=== PATIENT | male | born 1955 | race Caucasian/White ===

== ENCOUNTER 2018-02-13 14:20 | Emergency (ER) | payer MEDICARE, MEDICAID ==
[~2018-02-13] VITALS: Ht 193 cm; Wt 136.4 kg
[~2018-02-13 14:20] MED LIST: AMLO5TAB16 PO; ATOR20TA66 PO; CARB100T15 PO; CLOP75TA35 PO; DOCU100C40 PO; DULO30CA51 PO; ISOS30TA6 PO; LISI-600 PO; METH-603 PO; MIRT15TA8 PO; NITR0.4T48 SL; PER5325T PO; TRAZ-218 PO
[2018-02-13] MEDS ORDERED: LISI-600 PO (14:50)
[2018-02-13 15:10] LABS: CLARITY,URINE SLIGHTLY CLOUDY (Clear); COLOR,URINE YELLOW (Yellow); GLUCOSE, URINE NEGATIVE (Neg); KETONES,URINE TRACE mg/dl (Neg); LEUKOCYTE ESTERASE ,URINE NEGATIVE (Neg); NITRITES, URINE NEGATIVE (Neg); OCCULT BLOOD,URINE NEGATIVE (Neg); PH,URINE 5.5 (4.8-8.0); PROTEIN,URINE NEGATIVE (Neg); UROBILINOGEN,URINE 0.2 E.U/dL (0.2-1.0)
[2018-02-13 15:12] LABS: UA COLLECTION TYPE VOIDED
[2018-02-13 15:23] LABS: BACTERIA,URINE 1+ /HPF (Neg); MUCUS STRANDS MODERATE /LPF (Neg); RBC,URINE 0-2 /HPF (0-2); SQUAMOUS EPITHELIAL CELL,UR MODERATE /LPF (FEW); WBC,URINE 0-4 /HPF (0-4)
[2018-02-13 15:41] LABS: BASOPHILS % (AUTO) 0.7 % (0-1); EOSINOPHILS # (AUTO) 0.2 X10'3 (0-0.9); EOSINOPHILS % (AUTO) 3.6 % (0-6); HEMATOCRIT 45.1 % (42.0-52.0); HEMOGLOBIN 15.4 g/dl (14.0-17.9); LYMPHOCYTES # (AUTO) 1.4 X10'3 (1.1-4.8); MEAN CORPUSCULAR HEMOGLOBIN 29.9 PG (27.0-31.0); MEAN CORPUSCULAR HGB CONC 34.1 % (33.0-36.5); MEAN CORPUSCULAR VOLUME 87.7 FL (78-98); MEAN PLATELET VOLUME 7.7 FL (7.4-10.4); MONOCYTES # (AUTO) 0.3 X10'3 (0-0.9); MONOCYTES % (AUTO) 5.9 % (2-12); NEUTROPHILS # (AUTO) 3.8 X10'3 (1.8-7.7); NEUTROPHILS % (AUTO) 65.8 % (42-75); PLATELET COUNT 248 X10'3 (140-440); RED BLOOD COUNT 5.14 X10'6 (4.70-6.10); RED CELL DISTRIBUTION WIDTH 14.3 % (11.5-14.5); WHITE BLOOD COUNT 5.9 X10'3 (4.5-11.0)
[2018-02-13 15:53] LABS: PROTHROMBIN TIME 9.8 SECONDS (9.0-12.0)
[2018-02-13 15:59] LABS: ALANINE AMINOTRANSFERASE 27 U/L (12-78); ALBUMIN/GLOBULIN RATIO 1.2 (1.1-1.5); ALKALINE PHOSPHATASE 111 IU/L (46-116); ANION GAP 10 (8-16); ASPARTATE AMINO TRANSFERASE 16 U/L (10-37); BILIRUBIN,TOTAL 0.3 MG/DL (0.1-1.0); BLOOD UREA NITROGEN 17 MG/DL (7-18); BUN/CREATININE RATIO 17.2 (5.4-32.0); CALCIUM 8.9 MG/DL (8.5-10.1); CHLORIDE 104 MMOL/L (99-107); CREATININE 0.99 MG/DL (0.60-1.10); GLUCOSE 116 MG/DL (70-104); POTASSIUM 3.8 MMOL/L (3.5-5.1); SODIUM 141 MMOL/L (135-145); TOTAL CARBON DIOXIDE 26.8 MMOL/L (24-32); TOTAL PROTEIN 7.4 G/DL (6.4-8.2); eGFR 77 ML/MIN
[2018-02-13 16:13] LABS: LIPASE 357 U/L (73-393)
[2018-02-13] MEDS ORDERED: HYDROcodone/acetaminophen 10/325mg tab PO ONE (16:25)
[2018-02-13] MEDS ORDERED: ketorolac trometh inj. 60 MG/2 ML VIAL IM ONE (16:25)
[2018-02-13 17:22] VITALS: BP 108/6
== END 2018-02-13 17:28 | disposition home or self-care (01) ==
LOC: ER 14:23
DX: M25.551 Pain in right hip (principal); M25.552 Pain in left hip; I25.10 Atherosclerotic heart disease of native coronary artery without angina pectoris; I10 Essential (primary) hypertension; I25.2 Old myocardial infarction; K21.9 Gastro-esophageal reflux disease without esophagitis; G89.29 Other chronic pain; Z98.61 Coronary angioplasty status; Z88.8 Allergy status to other drugs, medicaments and biological substances; Z79.01 Long term (current) use of anticoagulants; Z79.899 Other long term (current) drug therapy
CPT/HCPCS: 36415; 73521; 80053; 81001; 83690; 85025; 85610; 96372; 99284; J1885

== ENCOUNTER 2018-04-24 12:00 | Emergency (ER) | payer MEDICARE, MEDICAID ==
[~2018-04-24] VITALS: Ht 193 cm; Wt 141.8 kg
[~2018-04-24 12:00] MED LIST changes: -AMLO5TAB16 PO; -CARB100T15 PO; -DOCU100C40 PO; -DULO30CA51 PO; -ISOS30TA6 PO; -METH-603 PO; -MIRT15TA8 PO; -PER5325T PO; -TRAZ-218 PO
[2018-04-24 12:16] VITALS: BP 150/93
[2018-04-24] MEDS ORDERED: DOXY100C43 PO (12:50)
== END 2018-04-24 13:07 | disposition home or self-care (01) ==
LOC: ER 12:01
DX: L97.519 Non-pressure chronic ulcer of other part of right foot with unspecified severity (principal); I10 Essential (primary) hypertension; I25.10 Atherosclerotic heart disease of native coronary artery without angina pectoris; K21.9 Gastro-esophageal reflux disease without esophagitis; G89.29 Other chronic pain; F17.200 Nicotine dependence, unspecified, uncomplicated; Z88.8 Allergy status to other drugs, medicaments and biological substances
CPT/HCPCS: 73630; 99283

== ENCOUNTER 2018-04-30 09:08 | Day surgery (SDC) | payer MEDICARE, MEDICAID ==
[~2018-04-30 09:08] MED LIST changes: +DOXY100C43 PO
[2018-04-30] MEDS ORDERED: LIDOcaine/PRILOcaine 5gm cream TP ONE (10:03)
--- NOTE | 2018-04-30 11:00 | NUR ---
Patient ambulated independently from [facility] accompanied by his mother and was admitted to outpatient wound care for physician visit with Brian Rivera MD. Wound cleansed and Emla cream applied per order. New patient assessment completed with review of patient medical history and current medications. 0953 - Dr. Rivera at bedside accompanied by RN. Wound assessed, time out performed by MD/RN. Wound debrided as detailed in the physician progress/procedure note. Plan of care discussed with patient. Dressings placed per MD orders. Patient instructed on the signs and symptoms of infection and to call the Wound Center if any occur or to go to the ED if we are closed: Increased pain in wound Increase in drainage from the wound Redness in the skin surrounding the wound Bleeding from the wound Temperature of 101 or greater Patient instructed that the weight of their body puts a large amount of pressure on their wounds. This pressure keeps the new tissue from growing and inhibits new blood vessels from forming. Explained that, if they continue to bear weight on a body part that has a wound, the time it takes to heal the wound increases, the wound may get worse or the wound may not heal at all. Patient verbalized understanding of all discharge instructions and plan of care and ambulated independently out to [facility] accompanied by his mother in stable condition with no sign or symptom of distress at time of discharge.
== END 2018-04-30 11:16 | disposition home or self-care (01) ==
LOC: WOUND CARE 09:08
PROVIDERS: ATTEND Surgery
DX: E11.621 Type 2 diabetes mellitus with foot ulcer (principal); L97.512 Non-pressure chronic ulcer of other part of right foot with fat layer exposed; E11.40 Type 2 diabetes mellitus with diabetic neuropathy, unspecified; I10 Essential (primary) hypertension; I25.10 Atherosclerotic heart disease of native coronary artery without angina pectoris; K21.9 Gastro-esophageal reflux disease without esophagitis; G89.29 Other chronic pain; F17.200 Nicotine dependence, unspecified, uncomplicated
CPT/HCPCS: 11042; 36415; 83036; 87070; 87075; 87102; A6209; L3260; 87077; 87186; A6021; A6206; A6446

== ENCOUNTER 2018-05-07 08:59 | Day surgery (SDC) | payer MEDICARE, MEDICAID ==
[~2018-05-07 08:59] MED LIST changes: -DOXY100C43 PO
[2018-05-07] MEDS ORDERED: LIDOcaine/PRILOcaine 5gm cream TP ONE (11:11)
--- NOTE | 2018-05-07 12:00 | NUR ---
Patient ambulated independently from lobby accompanied by his mother and was admitted to outpatient wound care for physician visit with Brian Rivera MD. Placed in contact isolation precautions per hospital policy. Dressing removed, wound cleansed and Emla cream applied per order. Patient assessed for changes in conditions, medications and medical history. Vascular study performed. Lab results of HgbA1C of 6.2 discussed with patient and his mother by RN; patient is advised to follow up with his primary care provider. 0932 - blood glucose 110. Patient instructed that elevated blood sugars delay healing of the wound and can cause further complications including but not limited to amputation of toes or feet. 1115 - Dr. Rivera at bedside accompanied by RN. Wound assessed, time out performed by MD/RN. Wound debrided as detailed in the physician progress/procedure note. Plan of care discussed with patient. Dressings placed per MD orders. Patient instructed on the signs and symptoms of infection and to call the Wound Center if any occur or to go to the ED if we are closed: Increased pain in wound Increase in drainage from the wound Redness in the skin surrounding the wound Bleeding from the wound Temperature of 101 or greater Patient instructed that the weight of their body puts a large amount of pressure on their wounds. This pressure keeps the new tissue from growing and inhibits new blood vessels from forming. Explained that, if they continue to bear weight on a body part that has a wound, the time it takes to heal the wound increases, the wound may get worse or the wound may not heal at all. Patient verbalized understanding of all discharge instructions and plan of care and ambulated independently out to lob in stable condition with no sign or symptom of distress at time of discharge.
[2018-05-07] MEDS ORDERED: ACET1TAB12 PO (12:43)
[2018-05-07] MEDS ORDERED: RIFA300C4 (12:43)
== END 2018-05-07 11:50 | disposition home or self-care (01) ==
LOC: WOUND CARE 08:59 → EDSTATUS 09:00 → WOUND CARE 11:50
PROVIDERS: ATTEND Surgery
DX: E11.621 Type 2 diabetes mellitus with foot ulcer (principal); L97.512 Non-pressure chronic ulcer of other part of right foot with fat layer exposed; E11.40 Type 2 diabetes mellitus with diabetic neuropathy, unspecified; I10 Essential (primary) hypertension; I25.10 Atherosclerotic heart disease of native coronary artery without angina pectoris; K21.9 Gastro-esophageal reflux disease without esophagitis; G89.29 Other chronic pain; F17.200 Nicotine dependence, unspecified, uncomplicated
CPT/HCPCS: 11042; 36416; 82948; 93922; A6209; L3260; A6021; A6206; A6446

== ENCOUNTER 2018-05-14 08:55 | Day surgery (SDC) | payer MEDICARE, MEDICAID ==
[~2018-05-14 08:55] MED LIST changes: +ACET1TAB12 PO; +RIFA300C4
[2018-05-14] MEDS ORDERED: LIDOcaine/PRILOcaine 5gm cream TP ONE (09:31)
[2018-05-14] MEDS ORDERED: LIDOcaine 1%/PF 5ML 10 MG/ML VIAL ONE (10:06)
--- NOTE | 2018-05-14 11:56 | NUR ---
Patient ambulated independently from lobby with crutches. Patient admitted to outpatient wound care for physician visit with Brian Rivera MD. Dressing removed, wound cleansed and Emla cream applied per order. Patient assessed for changes in conditions, medications and medical history. Dr. Rivera at bedside accompanied by RN. Wound assessed, time out performed by MD/RN. Wound debrided as detailed in the physician progress/procedure note. Plan of care discussed with patient. Dressings placed per MD orders. Patient instructed on the signs and symptoms of infection and to call the Wound Center if any occur or to go to the ED if we are closed: Increased pain in wound Increase in drainage from the wound Redness in the skin surrounding the wound Bleeding from the wound Temperature of 101 or greater Patient instructed that elevated blood sugars delay healing of the wound and can cause further complications including but not limited to amputation of toes or feet. Patient instructed that the weight of their body puts a large amount of pressure on their wounds. This pressure keeps the new tissue from growing and inhibits new blood vessels from forming. Explained that, if they continue to bear weight on a body part that has a wound, the time it takes to heal the wound increases, the wound may get worse or the wound may not heal at all. Patient verbalized understanding of all discharge instructions and plan of care and ambulated independently out to lobby in stable condition with no sign or symptom of distress at time of discharge. Addendum: 05/14/18 at 1159 by Fabiana Moran RN Amended: Links added.
== END 2018-05-14 10:58 | disposition home or self-care (01) ==
LOC: WOUND CARE 08:55
PROVIDERS: ATTEND Surgery
DX: E11.621 Type 2 diabetes mellitus with foot ulcer (principal); L97.512 Non-pressure chronic ulcer of other part of right foot with fat layer exposed; E11.40 Type 2 diabetes mellitus with diabetic neuropathy, unspecified; I10 Essential (primary) hypertension; I25.10 Atherosclerotic heart disease of native coronary artery without angina pectoris; K21.9 Gastro-esophageal reflux disease without esophagitis; G89.29 Other chronic pain; F17.200 Nicotine dependence, unspecified, uncomplicated
CPT/HCPCS: 11042; 36416; 82948; A6209; J2001; A6021; A6206; A6446

== ENCOUNTER 2018-05-21 08:54 | Day surgery (SDC) | payer MEDICARE, MEDICAID ==
[2018-05-21] MEDS ORDERED: LIDOcaine/PRILOcaine 5gm cream TP ONE (09:43)
--- NOTE | 2018-05-21 11:52 | NUR ---
Patient ambulated independently accompanied by his mother from [facility] and was admitted to outpatient wound care for physician visit with Brian Rivera MD. Placed in contact isolation precautions per hospital policy. Dressing removed, wound cleansed and Emla cream applied per order. Patient assessed for changes in conditions, medications and medical history. 0915 - blood glucose 131. Patient instructed that elevated blood sugars delay healing of the wound and can cause further complications including but not limited to amputation of toes or feet. 1007 - Dr. Rivera at bedside accompanied by RN. Wound assessed, time out performed by MD/RN. Wound debrided as detailed in the physician progress/procedure note. Plan of care discussed with patient. Dressings placed per MD orders. Patient instructed on the signs and symptoms of infection and to call the Wound Center if any occur or to go to the ED if we are closed: Increased pain in wound Increase in drainage from the wound Redness in the skin surrounding the wound Bleeding from the wound Temperature of 101 or greater Patient instructed that the weight of their body puts a large amount of pressure on their wounds. This pressure keeps the new tissue from growing and inhibits new blood vessels from forming. Explained that, if they continue to bear weight on a body part that has a wound, the time it takes to heal the wound increases, the wound may get worse or the wound may not heal at all. Patient and his mother verbalized understanding of all discharge instructions and plan of care and patient ambulated accompanied by his mother independently out to [facility] in stable condition with no sign or symptom of distress at time of discharge.
== END 2018-05-21 10:29 | disposition home or self-care (01) ==
LOC: WOUND CARE 08:54
PROVIDERS: ATTEND Surgery
DX: E11.621 Type 2 diabetes mellitus with foot ulcer (principal); L97.512 Non-pressure chronic ulcer of other part of right foot with fat layer exposed; E11.40 Type 2 diabetes mellitus with diabetic neuropathy, unspecified; I10 Essential (primary) hypertension; E11.65 Type 2 diabetes mellitus with hyperglycemia; I25.10 Atherosclerotic heart disease of native coronary artery without angina pectoris; K21.9 Gastro-esophageal reflux disease without esophagitis; G89.29 Other chronic pain; E78.5 Hyperlipidemia, unspecified; F17.200 Nicotine dependence, unspecified, uncomplicated; F12.10 Cannabis abuse, uncomplicated; Z86.19 Personal history of other infectious and parasitic diseases
CPT/HCPCS: 11042; 36416; 82948; A6209; A6021; A6206; A6446

== ENCOUNTER 2018-05-28 08:55 | Day surgery (SDC) | payer MEDICARE, MEDICAID ==
[2018-05-28] MEDS ORDERED: LIDOcaine/PRILOcaine 5gm cream TP ONE (09:42)
--- NOTE | 2018-05-28 11:54 | NUR ---
Patient ambulated independently from [facility] and was admitted to outpatient wound care for physician visit with Brian Rivera MD. Dressing removed, wound cleansed and Emla cream applied per order. Patient assessed for changes in conditions, medications and medical history. Dr. Rivera at bedside accompanied by RN. Wound assessed, time out performed by MD/RN. Wound debrided as detailed in the physician progress/procedure note. Plan of care discussed with patient. Dressings placed per MD orders. Patient instructed on the signs and symptoms of infection and to call the Wound Center if any occur or to go to the ED if we are closed: Increased pain in wound Increase in drainage from the wound Redness in the skin surrounding the wound Bleeding from the wound Temperature of 101 or greater Patient instructed that elevated blood sugars delay healing of the wound and can cause further complications including but not limited to amputation of toes or feet. Patient instructed that the weight of their body puts a large amount of pressure on their wounds. This pressure keeps the new tissue from growing and inhibits new blood vessels from forming. Explained that, if they continue to bear weight on a body part that has a wound, the time it takes to heal the wound increases, the wound may get worse or the wound may not heal at all. Patient verbalized understanding of all discharge instructions and plan of care and ambulated independently out to [facility] in stable condition with no sign or symptom of distress at time of discharge. Addendum: 05/28/18 at 1156 by Fabiana Moran RN Amended: Links added.
== END 2018-05-28 11:06 | disposition home or self-care (01) ==
LOC: WOUND CARE 08:55
PROVIDERS: ATTEND Surgery
DX: E11.621 Type 2 diabetes mellitus with foot ulcer (principal); L97.512 Non-pressure chronic ulcer of other part of right foot with fat layer exposed; E11.40 Type 2 diabetes mellitus with diabetic neuropathy, unspecified; I10 Essential (primary) hypertension; E11.65 Type 2 diabetes mellitus with hyperglycemia; I25.10 Atherosclerotic heart disease of native coronary artery without angina pectoris; K21.9 Gastro-esophageal reflux disease without esophagitis; G89.29 Other chronic pain; E78.5 Hyperlipidemia, unspecified; F17.200 Nicotine dependence, unspecified, uncomplicated; F12.10 Cannabis abuse, uncomplicated; Z86.19 Personal history of other infectious and parasitic diseases
CPT/HCPCS: 15275; 36416; 82948; A6222; Q4106; A6213; A6250; A6446

== ENCOUNTER 2018-06-04 08:55 | Day surgery (SDC) | payer MEDICARE, MEDICAID ==
[2018-06-04] MEDS ORDERED: LIDOcaine/PRILOcaine 5gm cream TP ONE (10:25)
[2018-06-04 12:31] LABS: ALANINE AMINOTRANSFERASE 20 U/L (12-78); ALBUMIN 3.7 G/DL (3.4-5.0); ALBUMIN/GLOBULIN RATIO 1.1 (1.1-1.5); ALKALINE PHOSPHATASE 85 IU/L (46-116); ANION GAP 7 (8-16); BILIRUBIN,TOTAL 0.6 MG/DL (0.1-1.0); BLOOD UREA NITROGEN 18 MG/DL (7-18); CALCIUM 9.4 MG/DL (8.5-10.1); CHLORIDE 107 MMOL/L (99-107); GLUCOSE 82 MG/DL (70-104); SODIUM 145 MMOL/L (135-145); TOTAL PROTEIN 7.1 G/DL (6.4-8.2)
[2018-06-04 12:42] LABS: CREATININE 0.82 MG/DL (0.60-1.10); eGFR > 90 ML/MIN
[2018-06-04 12:44] LABS: ASPARTATE AMINO TRANSFERASE 21 U/L (10-37); POTASSIUM 4.6 MMOL/L (3.5-5.1)
--- NOTE | 2018-06-04 14:43 | NUR ---
Patient ambulated independently from [facility] and was admitted to outpatient wound care for physician visit with Brian Rivera MD. Dressing removed, wound cleansed and Emla cream applied per order. Patient assessed for changes in conditions, medications and medical history. Dr. Rivera at bedside accompanied by RN. Wound assessed, time out performed by MD/RN. Wound debrided as detailed in the physician progress/procedure note. Plan of care discussed with patient. Dressings placed per MD orders. Patient instructed on the signs and symptoms of infection and to call the Wound Center if any occur or to go to the ED if we are closed: Increased pain in wound Increase in drainage from the wound Redness in the skin surrounding the wound Bleeding from the wound Temperature of 101 or greater Patient instructed that elevated blood sugars delay healing of the wound and can cause further complications including but not limited to amputation of toes or feet. Patient instructed that the weight of their body puts a large amount of pressure on their wounds. This pressure keeps the new tissue from growing and inhibits new blood vessels from forming. Explained that, if they continue to bear weight on a body part that has a wound, the time it takes to heal the wound increases, the wound may get worse or the wound may not heal at all. Patient verbalized understanding of all discharge instructions and plan of care and ambulated independently out to [facility] in stable condition with no sign or symptom of distress at time of discharge. Addendum: 06/04/18 at 1444 by Fabiana Moran RN Amended: Links added.
== END 2018-06-04 12:14 | disposition home or self-care (01) ==
LOC: WOUND CARE 08:55
PROVIDERS: ATTEND Surgery
DX: E11.621 Type 2 diabetes mellitus with foot ulcer (principal); L97.512 Non-pressure chronic ulcer of other part of right foot with fat layer exposed; E11.40 Type 2 diabetes mellitus with diabetic neuropathy, unspecified; I10 Essential (primary) hypertension; E11.65 Type 2 diabetes mellitus with hyperglycemia; I25.10 Atherosclerotic heart disease of native coronary artery without angina pectoris; K21.9 Gastro-esophageal reflux disease without esophagitis; G89.29 Other chronic pain; E78.5 Hyperlipidemia, unspecified; F17.200 Nicotine dependence, unspecified, uncomplicated; F12.10 Cannabis abuse, uncomplicated; Z86.19 Personal history of other infectious and parasitic diseases
CPT/HCPCS: 15275; 36415; 36416; 80053; 82948; 84402; A6209; A6222; Q4106; A6250; A6446

== ENCOUNTER 2018-06-12 08:50 | Outpatient (CLI) | payer MEDICARE, MEDICAID ==
--- NOTE | 2018-06-12 11:20 | NUR ---
Patient ambulated independently from [facility] and was admitted to outpatient wound care for physician visit with Brian Rivera MD. Dressing removed, wound cleansed and lidocaine applied per order. Patient assessed for changes in conditions, medications and medical history. Dr. Rivera at bedside accompanied by RN. Wound assessed and no debridement was done. Plan of care discussed with patient. Dressings placed per MD orders. Patient instructed on the signs and symptoms of infection and to call the Wound Center if any occur or to go to the ED if we are closed: Increased pain in wound Increase in drainage from the wound Redness in the skin surrounding the wound Bleeding from the wound Temperature of 101 or greater Patient instructed that elevated blood sugars delay healing of the wound and can cause further complications including but not limited to amputation of toes or feet. Patient instructed that the weight of their body puts a large amount of pressure on their wounds. This pressure keeps the new tissue from growing and inhibits new blood vessels from forming. Explained that, if they continue to bear weight on a body part that has a wound, the time it takes to heal the wound increases, the wound may get worse or the wound may not heal at all. Patient verbalized understanding of all discharge instructions and plan of care and ambulated independently out to [facility] in stable condition with no sign or symptom of distress at time of discharge. Addendum: 06/12/18 at 1121 by Fabiana Moran RN Amended: Links added.
== END 2018-06-12 10:25 | disposition home or self-care (01) ==
LOC: WOUND CARE 08:50 → EDSTATUS 09:00 → WOUND CARE 10:25
PROVIDERS: ATTEND Surgery
DX: E11.621 Type 2 diabetes mellitus with foot ulcer (principal); L97.512 Non-pressure chronic ulcer of other part of right foot with fat layer exposed; E11.40 Type 2 diabetes mellitus with diabetic neuropathy, unspecified; I10 Essential (primary) hypertension; E11.65 Type 2 diabetes mellitus with hyperglycemia; I25.10 Atherosclerotic heart disease of native coronary artery without angina pectoris; K21.9 Gastro-esophageal reflux disease without esophagitis; G89.29 Other chronic pain; E78.5 Hyperlipidemia, unspecified; F17.200 Nicotine dependence, unspecified, uncomplicated; F12.10 Cannabis abuse, uncomplicated; Z86.19 Personal history of other infectious and parasitic diseases
CPT/HCPCS: 36416; 82948; A6222; G0463; A6446

== ENCOUNTER 2018-06-19 08:50 | Day surgery (SDC) | payer MEDICARE, MEDICAID ==
[2018-06-19] MEDS ORDERED: LIDOcaine/PRILOcaine 5gm cream TP ONE (09:55)
--- NOTE | 2018-06-19 15:06 | NUR ---
Patient ambulated independently from [facility] and was admitted to outpatient wound care for physician visit with Brian Rivera MD. Dressing removed, wound cleansed and lidocaine applied per order. Patient assessed for changes in conditions, medications and medical history. Dr. Rivera at bedside accompanied by RN. Wound assessed, time out performed by MD/RN. Wound debrided as detailed in the physician progress/procedure note. Plan of care discussed with patient. Dressings placed per MD orders. Patient instructed on the signs and symptoms of infection and to call the Wound Center if any occur or to go to the ED if we are closed: Increased pain in wound Increase in drainage from the wound Redness in the skin surrounding the wound Bleeding from the wound Temperature of 101 or greater Patient instructed that elevated blood sugars delay healing of the wound and can cause further complications including but not limited to amputation of toes or feet. Patient instructed that the weight of their body puts a large amount of pressure on their wounds. This pressure keeps the new tissue from growing and inhibits new blood vessels from forming. Explained that, if they continue to bear weight on a body part that has a wound, the time it takes to heal the wound increases, the wound may get worse or the wound may not heal at all. Patient verbalized understanding of all discharge instructions and plan of care and ambulated independently out to [facility] in stable condition with no sign or symptom of distress at time of discharge. Addendum: 06/19/18 at 1507 by Fabiana Moran RN Amended: Links added.
== END 2018-06-19 11:34 | disposition home or self-care (01) ==
LOC: WOUND CARE 08:50
PROVIDERS: ATTEND Surgery
DX: E11.621 Type 2 diabetes mellitus with foot ulcer (principal); L97.512 Non-pressure chronic ulcer of other part of right foot with fat layer exposed; E11.40 Type 2 diabetes mellitus with diabetic neuropathy, unspecified; I10 Essential (primary) hypertension; E11.65 Type 2 diabetes mellitus with hyperglycemia; I25.10 Atherosclerotic heart disease of native coronary artery without angina pectoris; K21.9 Gastro-esophageal reflux disease without esophagitis; G89.29 Other chronic pain; E78.5 Hyperlipidemia, unspecified; F17.200 Nicotine dependence, unspecified, uncomplicated; F12.10 Cannabis abuse, uncomplicated; Z86.19 Personal history of other infectious and parasitic diseases
CPT/HCPCS: 15275; 36416; 82948; A6209; Q4106; A6250; A6446

== ENCOUNTER 2018-06-26 08:48 | Day surgery (SDC) | payer MEDICARE, MEDICAID ==
[2018-06-26] MEDS ORDERED: LIDOcaine/PRILOcaine 5gm cream TP ONE (09:56)
--- NOTE | 2018-06-26 16:06 | NUR ---
0900 Patient ambulated safely into [facility]. Patient admitted to outpatient wound care clinic for follow-up visit with physician. Patient placed in isolation per isolation protocol. Dressing removed, wound cleansed. Patient assessed for changes in conditions, medications and medical history. Patient showed no s/s of distress at time of assessment. 1015 at bedside accompanied by RN. Wounds assessed, time out performed and debridement done today as detailed in the physician progress/procedure note. Plan of care discussed with patient. Dressings placed per MD orders. Patient instructed on the signs and symptoms of infection and to call the Wound Center if any occur or to go to the ED if we are closed: Increased pain in wound Increase in drainage from the wound Redness in the skin surrounding the wound Bleeding from the wound Temperature of 101 or greater Patient instructed that the weight of their body puts a large amount of pressure on their wounds. This pressure keeps the new tissue from growing and inhibits new blood vessels from forming. Explained that, if they continue to bear weight on a body part that has a wound, the time it takes to heal the wound increases, the wound may get worse or the wound may not heal at all. Patient instructed that elevated blood sugars delay healing of the wound and can cause further complications including but not limited to amputation of toes or feet. Patient verbalized understanding of all discharge instructions and plan of care. Patient ambulated independently out to [facility] and is in stable condition with no sign or symptom of distress at time of discharge.
== END 2018-06-26 10:58 | disposition home or self-care (01) ==
LOC: WOUND CARE 08:48
PROVIDERS: ATTEND Surgery
DX: E11.621 Type 2 diabetes mellitus with foot ulcer (principal); L97.512 Non-pressure chronic ulcer of other part of right foot with fat layer exposed; E11.40 Type 2 diabetes mellitus with diabetic neuropathy, unspecified; I10 Essential (primary) hypertension; E11.65 Type 2 diabetes mellitus with hyperglycemia; I25.10 Atherosclerotic heart disease of native coronary artery without angina pectoris; K21.9 Gastro-esophageal reflux disease without esophagitis; G89.29 Other chronic pain; E78.5 Hyperlipidemia, unspecified; F17.200 Nicotine dependence, unspecified, uncomplicated; F12.10 Cannabis abuse, uncomplicated; Z86.19 Personal history of other infectious and parasitic diseases
CPT/HCPCS: 36416; 82948; 97597; A6209; A6021; A6446

== ENCOUNTER 2018-07-02 08:55 | Day surgery (SDC) | payer MEDICARE, MEDICAID ==
[2018-07-02] MEDS ORDERED: LIDOcaine/PRILOcaine 5gm cream TP ONE (09:30)
--- NOTE | 2018-07-02 12:25 | NUR ---
Patient ambulated independently from [facility] and was admitted to outpatient wound care for physician visit with Brian Rivera MD. Dressing removed, wound cleansed and lidocaine applied per order. Patient assessed for changes in conditions, medications and medical history. Dr. Rivera at bedside accompanied by RN. Wound assessed, time out performed by MD/RN. Wound debrided as detailed in the physician progress/procedure note. Graft placed and plan of care discussed with patient. Dressings placed per MD orders. Patient instructed on the signs and symptoms of infection and to call the Wound Center if any occur or to go to the ED if we are closed: Increased pain in wound Increase in drainage from the wound Redness in the skin surrounding the wound Bleeding from the wound Temperature of 101 or greater Patient instructed that elevated blood sugars delay healing of the wound and can cause further complications including but not limited to amputation of toes or feet. Patient instructed that the weight of their body puts a large amount of pressure on their wounds. This pressure keeps the new tissue from growing and inhibits new blood vessels from forming. Explained that, if they continue to bear weight on a body part that has a wound, the time it takes to heal the wound increases, the wound may get worse or the wound may not heal at all. Patient verbalized understanding of all discharge instructions and plan of care and ambulated independently out to [facility] in stable condition with no sign or symptom of distress at time of discharge. Addendum: 07/02/18 at 1227 by Fabiana Moran RN Amended: Links added.
== END 2018-07-02 10:57 | disposition home or self-care (01) ==
LOC: WOUND CARE 08:55
PROVIDERS: ATTEND Surgery
DX: E11.621 Type 2 diabetes mellitus with foot ulcer (principal); L97.512 Non-pressure chronic ulcer of other part of right foot with fat layer exposed; E11.40 Type 2 diabetes mellitus with diabetic neuropathy, unspecified; I10 Essential (primary) hypertension; E11.65 Type 2 diabetes mellitus with hyperglycemia; I25.10 Atherosclerotic heart disease of native coronary artery without angina pectoris; K21.9 Gastro-esophageal reflux disease without esophagitis; G89.29 Other chronic pain; E78.5 Hyperlipidemia, unspecified; F17.200 Nicotine dependence, unspecified, uncomplicated; F12.10 Cannabis abuse, uncomplicated; Z86.19 Personal history of other infectious and parasitic diseases
CPT/HCPCS: 15275; 36416; 82948; A6209; A6222; Q4106; A6250; A6446

== ENCOUNTER 2018-07-09 08:52 | Outpatient (CLI) | payer MEDICARE, MEDICAID ==
--- NOTE | 2018-07-09 13:16 | NUR ---
Patient ambulated independently from [facility] and was admitted to outpatient wound care for physician visit with Brian Rivera MD. Dressing removed, wound cleansed and lidocaine applied per order. Patient assessed for changes in conditions, medications and medical history. Dr. Rivera at bedside accompanied by RN. Wound assessed and no debridement was done. Graft in place. Plan of care discussed with patient. Dressings placed per MD orders. Patient instructed on the signs and symptoms of infection and to call the Wound Center if any occur or to go to the ED if we are closed: Increased pain in wound Increase in drainage from the wound Redness in the skin surrounding the wound Bleeding from the wound Temperature of 101 or greater Patient instructed that elevated blood sugars delay healing of the wound and can cause further complications including but not limited to amputation of toes or feet. Patient instructed that the weight of their body puts a large amount of pressure on their wounds. This pressure keeps the new tissue from growing and inhibits new blood vessels from forming. Explained that, if they continue to bear weight on a body part that has a wound, the time it takes to heal the wound increases, the wound may get worse or the wound may not heal at all. Patient verbalized understanding of all discharge instructions and plan of care and ambulated independently out to [facility] in stable condition with no sign or symptom of distress at time of discharge. Addendum: 07/09/18 at 1317 by Fabiana Moran RN Amended: Links added.
== END 2018-07-09 10:50 | disposition home or self-care (01) ==
LOC: WOUND CARE 08:52 → EDSTATUS 09:00 → WOUND CARE 10:50
PROVIDERS: ATTEND Surgery
DX: E11.621 Type 2 diabetes mellitus with foot ulcer (principal); L97.512 Non-pressure chronic ulcer of other part of right foot with fat layer exposed; E11.40 Type 2 diabetes mellitus with diabetic neuropathy, unspecified; I10 Essential (primary) hypertension; E11.65 Type 2 diabetes mellitus with hyperglycemia; I25.10 Atherosclerotic heart disease of native coronary artery without angina pectoris; K21.9 Gastro-esophageal reflux disease without esophagitis; G89.29 Other chronic pain; E78.5 Hyperlipidemia, unspecified; F17.200 Nicotine dependence, unspecified, uncomplicated; F12.10 Cannabis abuse, uncomplicated; Z86.19 Personal history of other infectious and parasitic diseases
CPT/HCPCS: 36416; 82948; G0463; A6206; A6446

== ENCOUNTER 2018-07-17 08:43 | Day surgery (SDC) | payer MEDICARE, MEDICAID ==
[2018-07-17] MEDS ORDERED: LIDOcaine/PRILOcaine 5gm cream TP ONE (09:32)
--- NOTE | 2018-07-17 14:56 | NUR ---
Patient ambulated independently from [facility] and was admitted to outpatient wound care for physician visit with Brian Rivera MD. Dressing removed, wound cleansed and Emla cream applied per order. Patient assessed for changes in conditions, medications and medical history. Dr. Rivera at bedside accompanied by RN. Wound assessed, time out performed by MD/RN. Wound debrided as detailed in the physician progress/procedure note. Plan of care discussed with patient. Dressings placed per MD orders. Patient instructed on the signs and symptoms of infection and to call the Wound Center if any occur or to go to the ED if we are closed: Increased pain in wound Increase in drainage from the wound Redness in the skin surrounding the wound Bleeding from the wound Temperature of 101 or greater Patient instructed that elevated blood sugars delay healing of the wound and can cause further complications including but not limited to amputation of toes or feet. Patient instructed that the weight of their body puts a large amount of pressure on their wounds. This pressure keeps the new tissue from growing and inhibits new blood vessels from forming. Explained that, if they continue to bear weight on a body part that has a wound, the time it takes to heal the wound increases, the wound may get worse or the wound may not heal at all. Patient verbalized understanding of all discharge instructions and plan of care and ambulated independently out to [facility] in stable condition with no sign or symptom of distress at time of discharge. Addendum: 07/17/18 at 1457 by Fabiana Moran RN Amended: Links added.
== END 2018-07-17 10:35 | disposition home or self-care (01) ==
LOC: WOUND CARE 08:43
PROVIDERS: ATTEND Surgery
DX: E11.621 Type 2 diabetes mellitus with foot ulcer (principal); L97.512 Non-pressure chronic ulcer of other part of right foot with fat layer exposed; E11.40 Type 2 diabetes mellitus with diabetic neuropathy, unspecified; I10 Essential (primary) hypertension; E11.65 Type 2 diabetes mellitus with hyperglycemia; I25.10 Atherosclerotic heart disease of native coronary artery without angina pectoris; K21.9 Gastro-esophageal reflux disease without esophagitis; G89.29 Other chronic pain; E78.5 Hyperlipidemia, unspecified; F17.200 Nicotine dependence, unspecified, uncomplicated; F12.10 Cannabis abuse, uncomplicated; Z86.19 Personal history of other infectious and parasitic diseases
CPT/HCPCS: 36416; 82948; 97597; A6021; A6206; A6446

== ENCOUNTER 2018-07-23 00:58 | Outpatient (CLI) | payer MEDICARE, MEDICAID | END 2018-07-23 23:59 | disposition home or self-care (01) | LOC: DIABETIC 00:58 | PROVIDERS: ATTEND Nurse Practitioner | DX: E11.65 Type 2 diabetes mellitus with hyperglycemia (principal); I10 Essential (primary) hypertension; Z79.84 Long term (current) use of oral hypoglycemic drugs; Z79.899 Other long term (current) drug therapy | CPT/HCPCS: G0108 ==

== ENCOUNTER 2018-07-24 08:50 | Day surgery (SDC) | payer MEDICARE, MEDICAID ==
[2018-07-24] MEDS ORDERED: LIDOcaine/PRILOcaine 5gm cream TP ONE (09:50)
--- NOTE | 2018-07-24 13:46 | NUR ---
Patient ambulated independently from [facility] and was admitted to outpatient wound care for physician visit with Brian Rivera MD. Dressing removed, wound cleansed and Emla cream applied per order. Patient assessed for changes in conditions, medications and medical history. Dr. Rivera at bedside accompanied by RN. Wound assessed, time out performed by MD/RN. Wound debrided as detailed in the physician progress/procedure note. Plan of care discussed with patient. Dressings placed per MD orders. Patient instructed on the signs and symptoms of infection and to call the Wound Center if any occur or to go to the ED if we are closed: Increased pain in wound Increase in drainage from the wound Redness in the skin surrounding the wound Bleeding from the wound Temperature of 101 or greater Patient instructed that elevated blood sugars delay healing of the wound and can cause further complications including but not limited to amputation of toes or feet. Patient instructed that the weight of their body puts a large amount of pressure on their wounds. This pressure keeps the new tissue from growing and inhibits new blood vessels from forming. Explained that, if they continue to bear weight on a body part that has a wound, the time it takes to heal the wound increases, the wound may get worse or the wound may not heal at all. Patient verbalized understanding of all discharge instructions and plan of care and ambulated independently out to [facility] in stable condition with no sign or symptom of distress at time of discharge. Addendum: 07/24/18 at 1348 by Fabiana Moran RN Amended: Links added.
== END 2018-07-24 10:50 | disposition home or self-care (01) ==
LOC: WOUND CARE 08:50
PROVIDERS: ATTEND Surgery
DX: E11.621 Type 2 diabetes mellitus with foot ulcer (principal); L97.512 Non-pressure chronic ulcer of other part of right foot with fat layer exposed; E11.40 Type 2 diabetes mellitus with diabetic neuropathy, unspecified; I10 Essential (primary) hypertension; E11.65 Type 2 diabetes mellitus with hyperglycemia; I25.10 Atherosclerotic heart disease of native coronary artery without angina pectoris; K21.9 Gastro-esophageal reflux disease without esophagitis; G89.29 Other chronic pain; E78.5 Hyperlipidemia, unspecified; F17.200 Nicotine dependence, unspecified, uncomplicated; F12.10 Cannabis abuse, uncomplicated; Z86.19 Personal history of other infectious and parasitic diseases
CPT/HCPCS: 36416; 82948; 97597; A6021; A6206; A6446

== ENCOUNTER 2018-07-31 08:52 | Outpatient (CLI) | payer MEDICARE, MEDICAID ==
[2018-07-31] MEDS ORDERED: LIDOcaine/PRILOcaine 5gm cream TP ONE (09:32)
--- NOTE | 2018-07-31 11:00 | NUR ---
Patient ambulated independently from [facility] and was admitted to outpatient wound care for physician visit with Brian Rivera MD. Dressing removed, wound cleansed and Emla cream applied per order. Patient assessed for changes in conditions, medications and medical history. 0938 - blood glucose 123. Patient instructed that elevated blood sugars delay healing of the wound and can cause further complications including but not limited to amputation of toes or feet. 1005 - Dr. Rivera at bedside accompanied by RN. Wound assessed by MD, orders written. Plan of care discussed with patient. Dressings placed per MD orders. Patient instructed on the signs and symptoms of infection and to call the Wound Center if any occur or to go to the ED if we are closed: Increased pain in wound Increase in drainage from the wound Redness in the skin surrounding the wound Bleeding from the wound Temperature of 101 or greater Patient instructed that the weight of their body puts a large amount of pressure on their wounds. This pressure keeps the new tissue from growing and inhibits new blood vessels from forming. Explained that, if they continue to bear weight on a body part that has a wound, the time it takes to heal the wound increases, the wound may get worse or the wound may not heal at all. Patient verbalized understanding of all discharge instructions and plan of care and ambulated independently out to [facility] in stable condition with no sign or symptom of distress at time of discharge.
== END 2018-07-31 10:55 | disposition home or self-care (01) ==
LOC: WOUND CARE 08:52 → EDSTATUS 09:00 → WOUND CARE 10:55
PROVIDERS: ATTEND Surgery
DX: E11.621 Type 2 diabetes mellitus with foot ulcer (principal); L97.512 Non-pressure chronic ulcer of other part of right foot with fat layer exposed; E11.40 Type 2 diabetes mellitus with diabetic neuropathy, unspecified; I10 Essential (primary) hypertension; E11.65 Type 2 diabetes mellitus with hyperglycemia; I25.10 Atherosclerotic heart disease of native coronary artery without angina pectoris; K21.9 Gastro-esophageal reflux disease without esophagitis; G89.29 Other chronic pain; E78.5 Hyperlipidemia, unspecified; F17.200 Nicotine dependence, unspecified, uncomplicated; F12.10 Cannabis abuse, uncomplicated; Z86.19 Personal history of other infectious and parasitic diseases
CPT/HCPCS: 36416; 82948; A6209; G0463; A6021; A6206; A6446

== ENCOUNTER 2018-08-07 08:50 | Day surgery (SDC) | payer MEDICARE, MEDICAID ==
[~2018-08-07 08:50] MED LIST changes: -RIFA300C4
--- NOTE | 2018-08-07 14:36 | NUR ---
Patient ambulated independently from [facility] and was admitted to outpatient wound care for physician visit with Brina Rivera MD. Dressings removed and wound cleansed. Patient assessed for changes in conditions, medications and medical history. Dr. Rivera at bedside accompanied by RN. Wound assessed, time out performed by MD/RN. Wound debrided as detailed in the physician progress/procedure note. Plan of care discussed with patient. Dressings placed per MD orders. Patient instructed on the signs and symptoms of infection and to call the Wound Center if any occur or to go to the ED if we are closed: Increased pain in wound Increase in drainage from the wound Redness in the skin surrounding the wound Bleeding from the wound Temperature of 101 or greater Patient instructed that elevated blood sugars delay healing of the wound and can cause further complications including but not limited to amputation of toes or feet. Patient instructed that the weight of their body puts a large amount of pressure on their wounds. This pressure keeps the new tissue from growing and inhibits new blood vessels from forming. Explained that, if they continue to bear weight on a body part that has a wound, the time it takes to heal the wound increases, the wound may get worse or the wound may not heal at all. Patient verbalized understanding of all discharge instructions and plan of care and ambulated independently out to [facility] in stable condition with no sign or symptom of distress at time of discharge. Addendum: 08/07/18 at 1448 by Fabiana Moran RN Amended: Links added.
== END 2018-08-07 11:17 | disposition home or self-care (01) ==
LOC: WOUND CARE 08:50
PROVIDERS: ATTEND Surgery
DX: E11.621 Type 2 diabetes mellitus with foot ulcer (principal); L97.512 Non-pressure chronic ulcer of other part of right foot with fat layer exposed; E11.40 Type 2 diabetes mellitus with diabetic neuropathy, unspecified; E11.65 Type 2 diabetes mellitus with hyperglycemia; I10 Essential (primary) hypertension; I25.10 Atherosclerotic heart disease of native coronary artery without angina pectoris; K21.9 Gastro-esophageal reflux disease without esophagitis; G89.29 Other chronic pain; E78.5 Hyperlipidemia, unspecified; F17.200 Nicotine dependence, unspecified, uncomplicated; F12.10 Cannabis abuse, uncomplicated; Z86.19 Personal history of other infectious and parasitic diseases
CPT/HCPCS: 36416; 82948; 97597; A4414; A6021; A6206; A6446

== ENCOUNTER 2018-08-14 09:00 | Day surgery (SDC) | payer MEDICARE, MEDICAID ==
[2018-08-14] MEDS ORDERED: LIDOcaine/PRILOcaine 5gm cream TP ONE (09:33)
--- NOTE | 2018-08-14 11:30 | NUR ---
Patient ambulated independently from [facility] accompanied by his mother and was admitted to outpatient wound care for physician visit with Brian Rivera MD. Placed in contact isolation precautions per hospital policy. Dressing removed, wound cleansed. Patient assessed for changes in conditions, medications and medical history. 925 - blood glucose 103. Patient instructed that elevated blood sugars delay healing of the wound and can cause further complications including but not limited to amputation of toes or feet. 1025 - Dr. Rivera at bedside accompanied by RN. Wound assessed, time out performed by MD/RN. Wound debrided and procedure performed as detailed in the physician progress/procedure note. Plan of care discussed with patient. Dressings placed per MD orders. Patient instructed on the signs and symptoms of infection and to call the Wound Center if any occur or to go to the ED if we are closed: Increased pain in wound Increase in drainage from the wound Redness in the skin surrounding the wound Bleeding from the wound Temperature of 101 or greater Patient instructed that the weight of their body puts a large amount of pressure on their wounds. This pressure keeps the new tissue from growing and inhibits new blood vessels from forming. Explained that, if they continue to bear weight on a body part that has a wound, the time it takes to heal the wound increases, the wound may get worse or the wound may not heal at all. Patient verbalized understanding of all discharge instructions and plan of care and ambulated independently out to [facility] accompanied by his mother in stable condition with no sign or symptom of distress at time of discharge.
[2018-08-14] MEDS ORDERED: BUPR1FIL7 SL (15:38)
== END 2018-08-14 11:08 | disposition home or self-care (01) ==
LOC: WOUND CARE 09:00
PROVIDERS: ATTEND Surgery
DX: E11.621 Type 2 diabetes mellitus with foot ulcer (principal); L97.512 Non-pressure chronic ulcer of other part of right foot with fat layer exposed; E11.40 Type 2 diabetes mellitus with diabetic neuropathy, unspecified; E11.65 Type 2 diabetes mellitus with hyperglycemia; I10 Essential (primary) hypertension; I25.10 Atherosclerotic heart disease of native coronary artery without angina pectoris; K21.9 Gastro-esophageal reflux disease without esophagitis; G89.29 Other chronic pain; E78.5 Hyperlipidemia, unspecified; F17.200 Nicotine dependence, unspecified, uncomplicated; F12.10 Cannabis abuse, uncomplicated; Z86.19 Personal history of other infectious and parasitic diseases
CPT/HCPCS: 15275; 36416; 82948; A6209; A6222; Q4106; A4414; A6250; A6446

== ENCOUNTER 2018-08-21 08:58 | Outpatient (CLI) | payer MEDICARE, MEDICAID ==
[~2018-08-21 08:58] MED LIST changes: +BUPR1FIL7 SL
[2018-08-22] MEDS ORDERED: SULF1TAB49 PO (17:59)
[2018-08-22] MEDS ORDERED: CEPH250T PO (17:59)
== END 2018-08-21 11:25 | disposition home or self-care (01) ==
LOC: WOUND CARE 08:58 → EDSTATUS 09:00 → WOUND CARE 11:25
PROVIDERS: ATTEND Surgery
DX: E11.621 Type 2 diabetes mellitus with foot ulcer (principal); L97.512 Non-pressure chronic ulcer of other part of right foot with fat layer exposed; E11.40 Type 2 diabetes mellitus with diabetic neuropathy, unspecified; E11.65 Type 2 diabetes mellitus with hyperglycemia; I10 Essential (primary) hypertension; I25.10 Atherosclerotic heart disease of native coronary artery without angina pectoris; K21.9 Gastro-esophageal reflux disease without esophagitis; G89.29 Other chronic pain; E78.5 Hyperlipidemia, unspecified; F17.200 Nicotine dependence, unspecified, uncomplicated; F12.10 Cannabis abuse, uncomplicated; Z86.19 Personal history of other infectious and parasitic diseases
CPT/HCPCS: 36416; 82948; A6209; G0463; A6021; A6206; A6446

== ENCOUNTER 2018-08-22 15:57 | Emergency (ER) | payer MEDICARE, MEDICAID ==
[~2018-08-22] VITALS: Ht 193 cm; Wt 134.1 kg
[2018-08-22 16:05] VITALS: BP 128/91
--- NOTE | 2018-08-22 17:02 | NUR ---
TO ER #11 WITH , C/O SWELLING IN RIGHT LOWER LEG THAT HAS BEEN INCREASING OVER THE PAST 2 DAYS. PATIENT HAS OPEN WOUND ON BOTTOM OF RIGHT FOOT AND SEES THE WOUND CLINIC REGULARLY. NO DRAINAGE NOTED FROM WOUND AT PRESENT. 3+ EDEMA NOTED TO RIGHT LOWER LEG WITH MILD ERYTHEMA AND TENDERNESS.
[2018-08-22] MEDS ORDERED: acetaminophen 325mg tablet PO ONE (17:05)
--- NOTE | 2018-08-22 17:26 | NUR ---
VASCULAR STUDY IN PROGRESS AT THE BEDSIDE.
[2018-08-22] MEDS ORDERED: CEPH250T PO (17:59)
[2018-08-22] MEDS ORDERED: SULF1TAB49 PO (17:59)
[2018-08-22] MEDS ORDERED: ondansetron 4mg rapidly disintigrating tab PO ONE (18:00)
[2018-08-22] MEDS ORDERED: cephalexin 250mg capsule PO ONE (18:00)
[2018-08-22] MEDS ORDERED: sulfamethoxazole/trimethoprim DS (800/160mg) tablet PO ONE (18:00)
== END 2018-08-22 18:44 | disposition home or self-care (01) ==
LOC: ER 15:57
DX: L03.115 Cellulitis of right lower limb (principal); G89.29 Other chronic pain; I25.10 Atherosclerotic heart disease of native coronary artery without angina pectoris; I10 Essential (primary) hypertension; I25.2 Old myocardial infarction; K21.9 Gastro-esophageal reflux disease without esophagitis; E11.9 Type 2 diabetes mellitus without complications; Z79.899 Other long term (current) drug therapy; Z79.2 Long term (current) use of antibiotics; Z98.61 Coronary angioplasty status; Z88.8 Allergy status to other drugs, medicaments and biological substances
CPT/HCPCS: 82948; 93971; 99284

== ENCOUNTER 2018-09-17 02:22 | Outpatient (CLI) | payer MEDICARE, MEDICAID | END 2018-09-17 23:59 | disposition home or self-care (01) | LOC: DIABETIC 02:22 | PROVIDERS: ATTEND Nurse Practitioner | DX: E11.9 Type 2 diabetes mellitus without complications (principal); I10 Essential (primary) hypertension; Z79.84 Long term (current) use of oral hypoglycemic drugs; Z79.82 Long term (current) use of aspirin; Z79.899 Other long term (current) drug therapy | CPT/HCPCS: G0108 ==

== ENCOUNTER 2018-09-18 08:48 | Day surgery (SDC) | payer MEDICARE, MEDICAID ==
[2018-09-18] MEDS ORDERED: LIDOcaine/PRILOcaine 5gm cream TP ONE (09:14)
--- NOTE | 2018-09-18 12:16 | NUR ---
Patient ambulated independently from [facility] and was admitted to outpatient wound care for physician visit with Brian Rivera MD. Dressing removed, wound cleansed and Emla cream applied per order. Patient assessed for changes in conditions, medications and medical history. Dr. Rivera at bedside accompanied by RN. Wound assessed, time out performed by MD/RN. Wound debrided as detailed in the physician progress/procedure note. Plan of care discussed with patient. Dressings placed per MD orders. Patient instructed on the signs and symptoms of infection and to call the Wound Center if any occur or to go to the ED if we are closed: Increased pain in wound Increase in drainage from the wound Redness in the skin surrounding the wound Bleeding from the wound Temperature of 101 or greater Patient instructed that the weight of their body puts a large amount of pressure on their wounds. This pressure keeps the new tissue from growing and inhibits new blood vessels from forming. Explained that, if they continue to bear weight on a body part that has a wound, the time it takes to heal the wound increases, the wound may get worse or the wound may not heal at all. Patient verbalized understanding of all discharge instructions and plan of care and ambulated independently out to [facility] in stable condition with no sign or symptom of distress at time of discharge. Addendum: 09/18/18 at 1221 by Fabiana Moran RN Amended: Links added.
== END 2018-09-18 10:03 | disposition home or self-care (01) ==
LOC: WOUND CARE 08:48
PROVIDERS: ATTEND Surgery
DX: E11.621 Type 2 diabetes mellitus with foot ulcer (principal); L97.512 Non-pressure chronic ulcer of other part of right foot with fat layer exposed; E11.40 Type 2 diabetes mellitus with diabetic neuropathy, unspecified; E11.65 Type 2 diabetes mellitus with hyperglycemia; I10 Essential (primary) hypertension; I25.10 Atherosclerotic heart disease of native coronary artery without angina pectoris; K21.9 Gastro-esophageal reflux disease without esophagitis; G89.29 Other chronic pain; E78.5 Hyperlipidemia, unspecified; F17.200 Nicotine dependence, unspecified, uncomplicated; F12.10 Cannabis abuse, uncomplicated; Z86.19 Personal history of other infectious and parasitic diseases
CPT/HCPCS: 36416; 82948; 97597; A6209; A6222; A6021; A6446

== ENCOUNTER 2018-09-20 10:24 | Emergency (ER) | payer MEDICARE, MEDICAID ==
[~2018-09-20] VITALS: Ht 193 cm; Wt 136.0 kg
[2018-09-20] MEDS ORDERED: levoFLOXACIN 250mg tablet PO ONE (12:50)
[2018-09-20] MEDS ORDERED: levoFLOXACIN 750MG TABLET PO ONE (12:50)
[2018-09-20 12:56] LABS: BASOPHILS % (AUTO) 0.7 % (0-1); EOSINOPHILS # (AUTO) 0.2 X10'3 (0-0.9); EOSINOPHILS % (AUTO) 3.8 % (0-6); HEMATOCRIT 41.2 % (42.0-52.0); HEMOGLOBIN 13.9 g/dl (14.0-17.9); LYMPHOCYTES # (AUTO) 0.9 X10'3 (1.1-4.8); LYMPHOCYTES % (AUTO) 16.5 % (21-51); MEAN CORPUSCULAR HEMOGLOBIN 29.5 PG (27.0-31.0); MEAN CORPUSCULAR HGB CONC 33.7 g/dL (33.0-36.5); MEAN CORPUSCULAR VOLUME 87.6 FL (78-98); MONOCYTES # (AUTO) 0.4 X10'3 (0-0.9); MONOCYTES % (AUTO) 7.6 % (2-12); NEUTROPHILS # (AUTO) 3.9 X10'3 (1.8-7.7); NEUTROPHILS % (AUTO) 71.4 % (42-75); PLATELET COUNT 204 X10'3 (140-440); RED BLOOD COUNT 4.71 X10'6 (4.70-6.10); RED CELL DISTRIBUTION WIDTH 15.6 % (11.5-14.5); WHITE BLOOD COUNT 5.4 X10'3 (4.5-11.0)
[2018-09-20 12:58] LABS: ALANINE AMINOTRANSFERASE 26 U/L (12-78); ALBUMIN 3.9 G/DL (3.4-5.0); ALKALINE PHOSPHATASE 100 IU/L (46-116); ANION GAP 5 (8-16); ASPARTATE AMINO TRANSFERASE 13 U/L (10-37); BILIRUBIN,TOTAL 0.4 MG/DL (0.1-1.0); BLOOD UREA NITROGEN 14 MG/DL (7-18); BUN/CREATININE RATIO 18.9 (5.4-32.0); CHLORIDE 102 MMOL/L (99-107); CREATININE 0.74 MG/DL (0.60-1.10); GLUCOSE 100 MG/DL (70-104); LIPASE 90 U/L (73-393); POTASSIUM 4.2 MMOL/L (3.5-5.1); SODIUM 139 MMOL/L (135-145); TOTAL CARBON DIOXIDE 32.3 MMOL/L (24-32); TOTAL PROTEIN 7.8 G/DL (6.4-8.2); eGFR > 90 ML/MIN
[2018-09-20] MEDS ORDERED: LEVO750T21 PO (13:29)
[2018-09-20 13:36] LABS: CLARITY,URINE CLEAR (Clear); COLOR,URINE YELLOW (Yellow); GLUCOSE, URINE NEGATIVE (Neg); KETONES,URINE NEGATIVE (Neg); LEUKOCYTE ESTERASE ,URINE NEGATIVE (Neg); NITRITES, URINE NEGATIVE (Neg); OCCULT BLOOD,URINE NEGATIVE (Neg); PH,URINE 6.5 (4.8-8.0); PROTEIN,URINE NEGATIVE (Neg)
[2018-09-20 13:37] LABS: UA COLLECTION TYPE CLN CATCH MIDSTREAM
[2018-09-20 13:49] VITALS: BP 139/82
== END 2018-09-20 13:52 | disposition home or self-care (01) ==
LOC: ER 10:25
DX: L03.115 Cellulitis of right lower limb (principal); R60.0 Localized edema; I25.10 Atherosclerotic heart disease of native coronary artery without angina pectoris; I10 Essential (primary) hypertension; I25.2 Old myocardial infarction; K21.9 Gastro-esophageal reflux disease without esophagitis; G89.29 Other chronic pain; F12.90 Cannabis use, unspecified, uncomplicated; Z98.61 Coronary angioplasty status; Z88.8 Allergy status to other drugs, medicaments and biological substances; Z79.2 Long term (current) use of antibiotics; Z79.899 Other long term (current) drug therapy
CPT/HCPCS: 36415; 80053; 81003; 83690; 85025; 99283

== ENCOUNTER 2018-09-25 08:55 | Outpatient (CLI) | payer MEDICARE, MEDICAID ==
[~2018-09-25 08:55] MED LIST changes: +LEVO750T21 PO
--- NOTE | 2018-09-25 13:23 | NUR ---
Patient ambulated independently from [facility] and was admitted to outpatient wound care for physician visit with Brian Rivera MD. Dressing removed, wound cleansed and patient assessed for changes in conditions, medications and medical history. Dr. Rivera at bedside accompanied by RN. Wound assessed and no debridement was done. Plan of care discussed with patient. Dressings placed per MD orders. Patient instructed on the signs and symptoms of infection and to call the Wound Center if any occur or to go to the ED if we are closed: Increased pain in wound Increase in drainage from the wound Redness in the skin surrounding the wound Bleeding from the wound Temperature of 101 or greater Patient instructed that elevated blood sugars delay healing of the wound and can cause further complications including but not limited to amputation of toes or feet. Patient instructed that the weight of their body puts a large amount of pressure on their wounds. This pressure keeps the new tissue from growing and inhibits new blood vessels from forming. Explained that, if they continue to bear weight on a body part that has a wound, the time it takes to heal the wound increases, the wound may get worse or the wound may not heal at all. Patient verbalized understanding of all discharge instructions and plan of care and ambulated independently out to [facility] in stable condition with no sign or symptom of distress at time of discharge. Addendum: 09/25/18 at 1325 by Fabiana Moran RN Amended: Links added.
== END 2018-09-25 11:04 | disposition home or self-care (01) ==
LOC: WOUND CARE 08:55 → EDSTATUS 09:00 → WOUND CARE 11:04
PROVIDERS: ATTEND Surgery
DX: E11.621 Type 2 diabetes mellitus with foot ulcer (principal); L97.512 Non-pressure chronic ulcer of other part of right foot with fat layer exposed; E11.40 Type 2 diabetes mellitus with diabetic neuropathy, unspecified; E11.65 Type 2 diabetes mellitus with hyperglycemia; I10 Essential (primary) hypertension; I25.10 Atherosclerotic heart disease of native coronary artery without angina pectoris; K21.9 Gastro-esophageal reflux disease without esophagitis; G89.29 Other chronic pain; E78.5 Hyperlipidemia, unspecified; F17.200 Nicotine dependence, unspecified, uncomplicated; F12.10 Cannabis abuse, uncomplicated; Z86.19 Personal history of other infectious and parasitic diseases
CPT/HCPCS: 36416; 82948; G0463; A4663; A6243

== ENCOUNTER 2018-09-28 12:32 | Emergency (ER) | payer MEDICARE, MEDICAID ==
[~2018-09-28] VITALS: Ht 193 cm; Wt 134.0 kg
[2018-09-28] MEDS ORDERED: quetiapine 100mg tablet PO ONE (13:12)
[2018-09-28 13:31] VITALS: BP 150/86
[2018-09-28] MEDS ORDERED: QUET-1 PO (13:36)
[2018-09-28] MEDS ORDERED: FURO-150 PO (13:36)
[2018-09-28] MEDS ORDERED: POTA10TA10 PO (13:36)
== END 2018-09-28 14:24 | disposition home or self-care (01) ==
LOC: ER 12:33
DX: R60.0 Localized edema (principal); F43.10 Post-traumatic stress disorder, unspecified; I25.10 Atherosclerotic heart disease of native coronary artery without angina pectoris; I10 Essential (primary) hypertension; I25.2 Old myocardial infarction; K21.9 Gastro-esophageal reflux disease without esophagitis; G89.29 Other chronic pain; F12.90 Cannabis use, unspecified, uncomplicated; Z98.61 Coronary angioplasty status; Z88.8 Allergy status to other drugs, medicaments and biological substances; Z79.2 Long term (current) use of antibiotics; Z79.899 Other long term (current) drug therapy
CPT/HCPCS: 99284

== ENCOUNTER 2018-10-09 08:55 | Day surgery (SDC) | payer MEDICARE, MEDICAID ==
[~2018-10-09 08:55] MED LIST changes: +FURO-150 PO; -LEVO750T21 PO; +POTA10TA10 PO; +QUET-1 PO
[2018-10-09] MEDS ORDERED: LIDOcaine 2% 5ml jelly ONE (09:21)
--- NOTE | 2018-10-09 13:15 | NUR ---
Patient ambulated independently from [facility] and was admitted to outpatient wound care for physician visit with Brian Rivera MD. Dressing removed, wound cleansed and lidocaine applied per order. Patient assessed for changes in conditions, medications and medical history. Dr. Rivera at bedside accompanied by RN. Wound assessed, time out performed by MD/RN. Wound debrided as detailed in the physician progress/procedure note. Plan of care discussed with patient. applied a Dermagraft to wound. Dressings placed per MD orders. Patient instructed on the signs and symptoms of infection and to call the Wound Center if any occur or to go to the ED if we are closed: Increased pain in wound Increase in drainage from the wound Redness in the skin surrounding the wound Bleeding from the wound Temperature of 101 or greater Patient instructed that elevated blood sugars delay healing of the wound and can cause further complications including but not limited to amputation of toes or feet. Patient instructed that the weight of their body puts a large amount of pressure on their wounds. This pressure keeps the new tissue from growing and inhibits new blood vessels from forming. Explained that, if they continue to bear weight on a body part that has a wound, the time it takes to heal the wound increases, the wound may get worse or the wound may not heal at all. Patient verbalized understanding of all discharge instructions and plan of care and ambulated independently out to [facility] in stable condition with no sign or symptom of distress at time of discharge. Addendum: 10/09/18 at 1316 by Fabiana Moran RN Amended: Links added.
[2018-11-03] MEDS ORDERED: METF-438 PO (15:48)
[2018-11-03] MEDS ORDERED: ASPI-611 PO (15:52)
[2018-11-03] MEDS ORDERED: BUPR1TAB36 SL (15:54)
[2018-11-03] MEDS ORDERED: PANT-47 PO (15:56)
== END 2018-10-09 10:45 | disposition home or self-care (01) ==
LOC: WOUND CARE 08:55
PROVIDERS: ATTEND Surgery
DX: E11.621 Type 2 diabetes mellitus with foot ulcer (principal); L97.512 Non-pressure chronic ulcer of other part of right foot with fat layer exposed; E11.40 Type 2 diabetes mellitus with diabetic neuropathy, unspecified; E11.65 Type 2 diabetes mellitus with hyperglycemia; I10 Essential (primary) hypertension; I25.10 Atherosclerotic heart disease of native coronary artery without angina pectoris; K21.9 Gastro-esophageal reflux disease without esophagitis; G89.29 Other chronic pain; E78.5 Hyperlipidemia, unspecified; F17.200 Nicotine dependence, unspecified, uncomplicated; F12.10 Cannabis abuse, uncomplicated; Z86.19 Personal history of other infectious and parasitic diseases
CPT/HCPCS: 15276; 36416; 82948; A6209; A6222; Q4106; 15275; A4663; A6250; A6446

== ENCOUNTER 2018-10-16 08:53 | Day surgery (SDC) | payer MEDICARE, MEDICAID ==
[~2018-10-16 08:53] MED LIST changes: -POTA10TA10 PO
[2018-10-16] MEDS ORDERED: LIDOcaine/PRILOcaine 5gm cream TP ONE (10:04)
[2018-10-17] MEDS ORDERED: AMOX-422 PO (22:39)
[2018-10-17] MEDS ORDERED: HYDR-4353 PO (22:39)
[2018-11-03] MEDS ORDERED: METF-438 PO (15:48)
[2018-11-03] MEDS ORDERED: ASPI-611 PO (15:52)
[2018-11-03] MEDS ORDERED: BUPR1TAB36 SL (15:54)
[2018-11-03] MEDS ORDERED: PANT-47 PO (15:56)
== END 2018-10-16 11:20 | disposition home or self-care (01) ==
LOC: WOUND CARE 08:53
PROVIDERS: ATTEND Surgery
DX: E11.621 Type 2 diabetes mellitus with foot ulcer (principal); L97.512 Non-pressure chronic ulcer of other part of right foot with fat layer exposed; E11.40 Type 2 diabetes mellitus with diabetic neuropathy, unspecified; E11.65 Type 2 diabetes mellitus with hyperglycemia; I10 Essential (primary) hypertension; I25.10 Atherosclerotic heart disease of native coronary artery without angina pectoris; K21.9 Gastro-esophageal reflux disease without esophagitis; G89.29 Other chronic pain; E78.5 Hyperlipidemia, unspecified; I25.2 Old myocardial infarction; F17.200 Nicotine dependence, unspecified, uncomplicated; F12.10 Cannabis abuse, uncomplicated; Z86.19 Personal history of other infectious and parasitic diseases; Z79.2 Long term (current) use of antibiotics; Z79.899 Other long term (current) drug therapy; Z79.82 Long term (current) use of aspirin; Z79.84 Long term (current) use of oral hypoglycemic drugs
CPT/HCPCS: 11042; 82948; 87070; 87075; 87077; 87102; 87186; L3260; A4663; A6021; A6446

== ENCOUNTER 2018-10-17 19:32 | Emergency (ER) | payer MEDICARE, MEDICAID ==
[~2018-10-17] VITALS: Ht 193 cm; Wt 125.0 kg
--- NOTE | 2018-10-17 20:16 | NUR ---
PT DEVELOPED REDNESS TO THE TOP OF HIS FOOT YESTERDAY AND THAT HIS FOOT ULCER IS WORSENING, PT STATES DR MIRAMONTES SAID HE NEEDS AN MRI. PT WAS STARTED ON AN ANTIBIOTIC AGAIN YESTERDAY, HAS TAKEN TWO DOSES, MED ORDERED BID. PT HAS REDNESS TO HIS STEELE ALSO, BUT STATES THAT'S BEEN THERE FOR SEVERAL MONTHS.
[2018-10-17] MEDS ORDERED: vancomycin/NS 1 GM ADD-VANTAGE 250 ML IV ONE (20:25)
[2018-10-17] MEDS ORDERED: piperacillin/tazo 3.375gm/50ml 50 ML IV ONE (20:25)
[2018-10-17 20:57] LABS: BASOPHILS % (AUTO) 0.5 % (0-1); EOSINOPHILS # (AUTO) 0.2 X10'3 (0-0.9); EOSINOPHILS % (AUTO) 2.6 % (0-6); HEMATOCRIT 38.6 % (42.0-52.0); HEMOGLOBIN 12.9 g/dl (14.0-17.9); LYMPHOCYTES % (AUTO) 10.8 % (21-51); MEAN CORPUSCULAR HEMOGLOBIN 28.8 PG (27.0-31.0); MEAN CORPUSCULAR HGB CONC 33.3 g/dL (33.0-36.5); MEAN CORPUSCULAR VOLUME 86.5 FL (78-98); MEAN PLATELET VOLUME 7.4 FL (7.4-10.4); MONOCYTES # (AUTO) 0.6 X10'3 (0-0.9); MONOCYTES % (AUTO) 6.8 % (2-12); NEUTROPHILS # (AUTO) 7.2 X10'3 (1.8-7.7); NEUTROPHILS % (AUTO) 79.3 % (42-75); PLATELET COUNT 219 X10'3 (140-440); RED BLOOD COUNT 4.47 X10'6 (4.70-6.10); RED CELL DISTRIBUTION WIDTH 15.5 % (11.5-14.5); WHITE BLOOD COUNT 9.1 X10'3 (4.5-11.0)
--- NOTE | 2018-10-17 21:06 | NUR ---
Patient is with xray.
[2018-10-17 21:11] LABS: ALANINE AMINOTRANSFERASE 23 U/L (12-78); ALBUMIN 3.6 G/DL (3.4-5.0); ALBUMIN/GLOBULIN RATIO 0.9 (1.1-1.5); ALKALINE PHOSPHATASE 85 IU/L (46-116); ANION GAP 5 (8-16); ASPARTATE AMINO TRANSFERASE 13 U/L (10-37); BILIRUBIN,TOTAL 0.7 MG/DL (0.1-1.0); BLOOD UREA NITROGEN 13 MG/DL (7-18); BUN/CREATININE RATIO 16.7 (5.4-32.0); C-REACTIVE PROTEIN 3.36 MG/DL (0.0-0.5); CALCIUM 9.1 MG/DL (8.5-10.1); CHLORIDE 106 MMOL/L (99-107); CREATININE 0.78 MG/DL (0.60-1.10); GLUCOSE 122 MG/DL (70-104); MAGNESIUM 1.7 MG/DL (1.5-2.4); POTASSIUM 4.3 MMOL/L (3.5-5.1); SODIUM 143 MMOL/L (135-145); TOTAL CARBON DIOXIDE 32.1 MMOL/L (24-32); TOTAL PROTEIN 7.5 G/DL (6.4-8.2); eGFR > 90 ML/MIN
[2018-10-17] MEDS ORDERED: ondansetron/PF 4mg/2ml inj IV ONE (21:55)
[2018-10-17] MEDS ORDERED: HYDROcodone/acetaminophen 10/325mg tab PO ONE (21:55)
[2018-10-17] MEDS: morphine 4 MG/ML inj SYRINge IV PRN ×3 (21:58→23:21)
[2018-10-17] MEDS ORDERED: HYDR-4353 PO (22:39)
[2018-10-17] MEDS ORDERED: AMOX-422 PO (22:39)
[2018-10-17 23:42] VITALS: BP 138/71
[2018-11-03] MEDS ORDERED: METF-438 PO (15:48)
[2018-11-03] MEDS ORDERED: ASPI-611 PO (15:52)
[2018-11-03] MEDS ORDERED: BUPR1TAB36 SL (15:54)
[2018-11-03] MEDS ORDERED: PANT-47 PO (15:56)
== END 2018-10-17 23:44 | disposition home or self-care (01) ==
LOC: ER 19:32
DX: L03.115 Cellulitis of right lower limb (principal); E11.621 Type 2 diabetes mellitus with foot ulcer; L97.413 Non-pressure chronic ulcer of right heel and midfoot with necrosis of muscle; R11.10 Vomiting, unspecified; I25.10 Atherosclerotic heart disease of native coronary artery without angina pectoris; I10 Essential (primary) hypertension; I25.2 Old myocardial infarction; K21.9 Gastro-esophageal reflux disease without esophagitis; G89.29 Other chronic pain; F12.90 Cannabis use, unspecified, uncomplicated; Z98.61 Coronary angioplasty status; Z88.8 Allergy status to other drugs, medicaments and biological substances; Z79.899 Other long term (current) drug therapy
CPT/HCPCS: 36415; 71045; 73630; 80053; 83605; 83735; 84145; 85025; 85651; 86140; 87040; 87077; 87186; 96365; 96366; 96368; 96375; 96376; 99284; J2270; J2405; J2543; J3370

== ENCOUNTER 2018-10-23 08:58 | Day surgery (SDC) | payer MEDICARE, MEDICAID ==
[~2018-10-23 08:58] MED LIST changes: +AMOX-422 PO; +HYDR-4353 PO
[2018-10-23] MEDS ORDERED: LIDOcaine 2% 5ml jelly ONE (11:11)
[2018-11-03] MEDS ORDERED: METF-438 PO (15:48)
[2018-11-03] MEDS ORDERED: ASPI-611 PO (15:52)
[2018-11-03] MEDS ORDERED: BUPR1TAB36 SL (15:54)
[2018-11-03] MEDS ORDERED: PANT-47 PO (15:56)
== END 2018-10-23 11:55 | disposition home or self-care (01) ==
LOC: WOUND CARE 08:58
PROVIDERS: ATTEND Surgery
DX: E11.621 Type 2 diabetes mellitus with foot ulcer (principal); L97.512 Non-pressure chronic ulcer of other part of right foot with fat layer exposed; E11.40 Type 2 diabetes mellitus with diabetic neuropathy, unspecified; E11.65 Type 2 diabetes mellitus with hyperglycemia; I10 Essential (primary) hypertension; I25.10 Atherosclerotic heart disease of native coronary artery without angina pectoris; K21.9 Gastro-esophageal reflux disease without esophagitis; G89.29 Other chronic pain; E78.5 Hyperlipidemia, unspecified; I25.2 Old myocardial infarction; F17.200 Nicotine dependence, unspecified, uncomplicated; F12.10 Cannabis abuse, uncomplicated; Z86.19 Personal history of other infectious and parasitic diseases; Z79.2 Long term (current) use of antibiotics; Z79.899 Other long term (current) drug therapy; Z79.82 Long term (current) use of aspirin; Z79.84 Long term (current) use of oral hypoglycemic drugs
CPT/HCPCS: 73718; 97597

== ENCOUNTER 2018-10-30 08:50 | Day surgery (SDC) | payer MEDICARE, MEDICAID ==
[~2018-10-30 08:50] MED LIST changes: -AMOX-422 PO
[2018-10-30] MEDS ORDERED: LIDOcaine 2% 5ml jelly ONE (09:46)
[2018-11-03] MEDS ORDERED: METF-438 PO (15:48)
[2018-11-03] MEDS ORDERED: ASPI-611 PO (15:52)
[2018-11-03] MEDS ORDERED: BUPR1TAB36 SL (15:54)
[2018-11-03] MEDS ORDERED: PANT-47 PO (15:56)
== END 2018-10-30 11:03 | disposition home or self-care (01) ==
LOC: WOUND CARE 08:50
PROVIDERS: ATTEND Surgery
DX: E11.621 Type 2 diabetes mellitus with foot ulcer (principal); L97.512 Non-pressure chronic ulcer of other part of right foot with fat layer exposed; E11.40 Type 2 diabetes mellitus with diabetic neuropathy, unspecified; E11.65 Type 2 diabetes mellitus with hyperglycemia; I10 Essential (primary) hypertension; I25.10 Atherosclerotic heart disease of native coronary artery without angina pectoris; K21.9 Gastro-esophageal reflux disease without esophagitis; G89.29 Other chronic pain; E78.5 Hyperlipidemia, unspecified; I25.2 Old myocardial infarction; F17.200 Nicotine dependence, unspecified, uncomplicated; F12.10 Cannabis abuse, uncomplicated; Z86.19 Personal history of other infectious and parasitic diseases; Z79.2 Long term (current) use of antibiotics; Z79.899 Other long term (current) drug therapy; Z79.82 Long term (current) use of aspirin; Z79.84 Long term (current) use of oral hypoglycemic drugs
CPT/HCPCS: 11042; 36416; A6209; A4663; A6021; A6154; A6446

== ENCOUNTER 2018-11-04 09:37 | Day surgery (SDC) | payer MEDICARE, MEDICAID ==
[2018-11-03 16:43] LABS: BASOPHILS # (AUTO) 0.1 X10'3 (0-0.2); BASOPHILS % (AUTO) 0.9 % (0-1); EOSINOPHILS # (AUTO) 0.2 X10'3 (0-0.9); EOSINOPHILS % (AUTO) 4.5 % (0-6); LYMPHOCYTES % (AUTO) 19.2 % (21-51); MEAN CORPUSCULAR HEMOGLOBIN 28.9 PG (27.0-31.0); MEAN CORPUSCULAR VOLUME 84.9 FL (78-98); MEAN PLATELET VOLUME 7.5 FL (7.4-10.4); MONOCYTES # (AUTO) 0.4 X10'3 (0-0.9); MONOCYTES % (AUTO) 6.5 % (2-12); NEUTROPHILS # (AUTO) 3.7 X10'3 (1.8-7.7); NEUTROPHILS % (AUTO) 68.9 % (42-75); PRE OP HEMOGLOBIN 12.9 g/dL (14.0-17.9); PRE OP PLATELET COUNT 230 X10'3 (140-440); RED BLOOD COUNT 4.47 X10'6 (4.70-6.10)
[2018-11-03 16:49] LABS: CLARITY,URINE CLEAR (Clear); COLOR,URINE YELLOW (Yellow); GLUCOSE, URINE NEGATIVE (Neg); KETONES,URINE NEGATIVE (Neg); LEUKOCYTE ESTERASE ,URINE NEGATIVE (Neg); NITRITES, URINE NEGATIVE (Neg); OCCULT BLOOD,URINE NEGATIVE (Neg); PH,URINE 5.5 (4.8-8.0); PROTEIN,URINE NEGATIVE (Neg); UROBILINOGEN,URINE 0.2 E.U/dL (0.2-1.0)
[2018-11-03 16:51] LABS: UA COLLECTION TYPE CLN CATCH MIDSTREAM
[2018-11-03 16:59] LABS: ALBUMIN 3.6 G/DL (3.4-5.0); ALKALINE PHOSPHATASE 71 IU/L (46-116); BLOOD UREA NITROGEN 13 MG/DL (7-18); BUN/CREATININE RATIO 16.5 (5.4-32.0); CALCIUM 8.9 MG/DL (8.5-10.1); CHLORIDE 108 MMOL/L (99-107); CREATININE 0.79 MG/DL (0.60-1.10); PRE OP ALT 27 U/L (30-65); PRE OP ANION GAP 4 (8-16); PRE OP AST 19 U/L (10-37); PRE OP BILIRUB, TOTAL 0.2 MG/DL (0.0-1.0); PRE OP GLUCOSE 105 MG/DL (70-104); PRE OP POTASSIUM 4.2 MMOL/L (3.4-5.1); PRE OP SODIUM 145 MMOL/L (135-145); TOTAL CARBON DIOXIDE 32.7 MMOL/L (24-32); TOTAL PROTEIN 7.2 G/DL (6.4-8.2); eGFR > 90 ML/MIN
[2018-11-03 17:19] LABS: PRE OP PROTIME 10.1 SECONDS (9.0-12.0)
[~2018-11-04] VITALS: Ht 193 cm; Wt 137.3 kg
[2018-11-04] VITALS (8 sets, daily range): BP systolic 117–162; BP diastolic 78–100
[~2018-11-04 09:37] MED LIST changes: -ACET1TAB12 PO; +ASPI-611 PO; -BUPR1FIL7 SL; +BUPR1TAB36 SL; -FURO-150 PO; -HYDR-4353 PO; +METF-438 PO; -NITR0.4T48 SL; +PANT-47 PO; +ceFAZolin 1GM/D5W- ADD-VANTAGE 50 ML IV ONE; +cefazolin/dext.iso 2gm/100 ML IV ONE
[2018-11-04] MEDS ORDERED: famotidine 20mg tablet PO ONE (09:45)
[2018-11-04] MEDS ORDERED: ringers solution, lacted 1,000 ML IV SCH ×2 (09:45→11:37)
[2018-11-04] MEDS ORDERED: meperidine/PF 25mg/ml syringe IV ONE (10:10)
[2018-11-04] MEDS ORDERED: ondansetron/PF 4mg/2ml inj IV PRN (11:40)
[2018-11-04] MEDS ORDERED: fentaNYL/PF 50MCG/1 ML 2ML syringe IV PRN ×2 (11:40)
[2018-11-04] MEDS ORDERED: HYDROmorphone inj. 0.5 MG/0.5 ML DISP.SYRIN IV PRN (11:40)
[2018-11-04] MEDS ORDERED: LIDOcaine 2% (20mg/ml) 5ml vial ONE ×2 (11:54)
[2018-11-04] MEDS ORDERED: BUPIVAcaine/PF 7.5mg/ml (0.75%) 10ml vial ONE (11:54)
[2018-11-04] MEDS ORDERED: MIDAZolam 5mg/5ml vial ONE (11:54)
[2018-11-04] MEDS ORDERED: fentaNYL/PF 50MCG/1 ML 2ML syringe ONE ×2 (11:54→13:00)
[2018-11-04] MEDS ORDERED: povidone-iodine 10% topical ointment 28.4gm TP ONE (12:28)
[2018-11-04] MEDS ORDERED: BUPIVAcaine/PF 2.5 mg/ml (0.25%) 30ml vial ONE (12:28)
[2018-11-04] MEDS ORDERED: ketamine 50mg/5ml syringe ONE (13:00)
[2018-11-04] MEDS ORDERED: propofol inj 20 ML IV ONE ×2 (13:01→13:45)
[2018-11-04] MEDS ORDERED: ceFAZolin 1000mg inj ONE ×2 (13:14→13:26)
[2018-11-04] MEDS ORDERED: hydrALAZINE 20mg/ml inj. IV ONE (13:30)
--- NOTE | 2018-11-04 14:05 | NUR ---
Received from OR via [facility], accompanied by Anesthesiologist DR. RAMIREZ and report given by Anesthesiolgist. PT ARRIVED EXTREMLY PAINFULL. PER DR. RAMIREZ FENT 100MCG PULLED FROM [employer] FOR DR. RAMIREZ TO ADMINISTER HIMSELF. PT FULLY AWAKE, VSS ON RA. PT VOIDED IN URINAL UPON ARRIVAL WELL. HEAD PLACED DOWN AND FOOT ELEVATED TO HELP WITH PAIN. AFTER FENT, DILAUDID AND DEMEROL, PT STILL C/O PAIN PER DR. MARTINEZ AND JAMES TORADOL AND IV TYL OK TO ORDER WELL. PULSES AND TOOTH POLISHER WNL. ALCANTAR WITH GOOD CSM.
[2018-11-04] MEDS ORDERED: HYDROmorphone 1 mg/ml syringe ONE ×2 (14:11→14:26)
[2018-11-04] MEDS: HYDROmorphone inj. 0.5 MG/0.5 ML DISP.SYRIN IV PRN ×4 (14:15→14:36)
[2018-11-04] MEDS ORDERED: ketorolac trometh. 30mg/ml inj. IM ONE (14:30)
[2018-11-04] MEDS ORDERED: acetaminophen 1,000mg/100ml IV 100 ML IV ONE (14:30)
[2018-11-04] MEDS ORDERED: meperidine/PF 25mg/ml syringe ONE (14:32)
--- NOTE | 2018-11-04 15:15 | NUR ---
PER PT PAIN 4/10 AND HE WANTS TO GO HOME. MEETS DC CRITERIA. DC INSTR READ TO PT AND MOTHER, WRITTEN COPY PROVIDED FOR HOME. IV DC'D. TO POV VIA WC FOR DC HOME
== END 2018-11-04 15:15 | disposition home or self-care (01) ==
LOC: PAS 09:37
PROVIDERS: ATTEND Surgery
DX: T81.89XA Other complications of procedures, not elsewhere classified, initial encounter (principal); I10 Essential (primary) hypertension; I25.10 Atherosclerotic heart disease of native coronary artery without angina pectoris; F41.9 Anxiety disorder, unspecified; F43.10 Post-traumatic stress disorder, unspecified; Z86.19 Personal history of other infectious and parasitic diseases; Z72.89 Other problems related to lifestyle; Z79.82 Long term (current) use of aspirin; Z87.891 Personal history of nicotine dependence; Z79.899 Other long term (current) drug therapy; Z79.01 Long term (current) use of anticoagulants; Y84.8 Other medical procedures as the cause of abnormal reaction of the patient, or of later complication, without mention of misadventure at the time of the procedure; Y92.89 Other specified places as the place of occurrence of the external cause
CPT/HCPCS: 28810; 36415; 80053; 81003; 82948; 85025; 85610; 85730; 93005; A6222; J0131; J0360; J0690; J1170; J1885; J2001; J2175; J2250; J2704; J3010; J3490; 88305; 88311; A6446; A6449; A7000; J7120

== ENCOUNTER 2018-11-13 09:00 | Outpatient (CLI) | payer MEDICARE, MEDICAID ==
[~2018-11-13 09:00] MED LIST changes: -ceFAZolin 1GM/D5W- ADD-VANTAGE 50 ML IV ONE; -cefazolin/dext.iso 2gm/100 ML IV ONE
[2018-11-13] MEDS ORDERED: mupirocin 2% ointment 22GM ONE (10:45)
== END 2018-11-13 11:05 | disposition home or self-care (01) ==
LOC: WOUND CARE 09:00 → EDSTATUS 10:00 → WOUND CARE 11:05
PROVIDERS: ATTEND Surgery
DX: E11.621 Type 2 diabetes mellitus with foot ulcer (principal); L97.512 Non-pressure chronic ulcer of other part of right foot with fat layer exposed; E11.40 Type 2 diabetes mellitus with diabetic neuropathy, unspecified; E11.65 Type 2 diabetes mellitus with hyperglycemia; I10 Essential (primary) hypertension; I25.10 Atherosclerotic heart disease of native coronary artery without angina pectoris; K21.9 Gastro-esophageal reflux disease without esophagitis; G89.29 Other chronic pain; E78.5 Hyperlipidemia, unspecified; I25.2 Old myocardial infarction; F17.200 Nicotine dependence, unspecified, uncomplicated; F12.10 Cannabis abuse, uncomplicated; Z86.19 Personal history of other infectious and parasitic diseases; Z79.2 Long term (current) use of antibiotics; Z79.899 Other long term (current) drug therapy; Z79.82 Long term (current) use of aspirin; Z79.84 Long term (current) use of oral hypoglycemic drugs
CPT/HCPCS: 36416; 82948; G0463

== ENCOUNTER 2018-11-20 08:50 | Day surgery (SDC) | payer MEDICARE, MEDICAID ==
[2018-11-20] MEDS ORDERED: LIDOcaine/PRILOcaine 5gm cream TP ONE (09:08)
== END 2018-11-20 10:36 | disposition home or self-care (01) ==
LOC: WOUND CARE 08:50
PROVIDERS: ATTEND Surgery
DX: T81.30XD Disruption of wound, unspecified, subsequent encounter (principal); E11.621 Type 2 diabetes mellitus with foot ulcer; L97.512 Non-pressure chronic ulcer of other part of right foot with fat layer exposed; E11.40 Type 2 diabetes mellitus with diabetic neuropathy, unspecified; E11.65 Type 2 diabetes mellitus with hyperglycemia; I10 Essential (primary) hypertension; I25.10 Atherosclerotic heart disease of native coronary artery without angina pectoris; K21.9 Gastro-esophageal reflux disease without esophagitis; G89.29 Other chronic pain; E78.5 Hyperlipidemia, unspecified; I25.2 Old myocardial infarction; F17.200 Nicotine dependence, unspecified, uncomplicated; F12.10 Cannabis abuse, uncomplicated; Z86.19 Personal history of other infectious and parasitic diseases; Z79.2 Long term (current) use of antibiotics; Z79.899 Other long term (current) drug therapy; Z79.82 Long term (current) use of aspirin; Z79.84 Long term (current) use of oral hypoglycemic drugs; Y83.8 Other surgical procedures as the cause of abnormal reaction of the patient, or of later complication, without mention of misadventure at the time of the procedure
CPT/HCPCS: 36416; 82948; 97597; 97598; A6223; A4663; A6446

== ENCOUNTER 2018-11-27 08:43 | Day surgery (SDC) | payer MEDICARE, MEDICAID ==
[2018-11-27] MEDS ORDERED: LIDOcaine 2% 5ml jelly ONE (09:16)
== END 2018-11-27 10:50 | disposition home or self-care (01) ==
LOC: WOUND CARE 08:43
PROVIDERS: ATTEND Surgery
DX: T81.30XD Disruption of wound, unspecified, subsequent encounter (principal); E11.621 Type 2 diabetes mellitus with foot ulcer; L97.512 Non-pressure chronic ulcer of other part of right foot with fat layer exposed; E11.40 Type 2 diabetes mellitus with diabetic neuropathy, unspecified; E11.65 Type 2 diabetes mellitus with hyperglycemia; I10 Essential (primary) hypertension; I25.10 Atherosclerotic heart disease of native coronary artery without angina pectoris; K21.9 Gastro-esophageal reflux disease without esophagitis; G89.29 Other chronic pain; E78.5 Hyperlipidemia, unspecified; I25.2 Old myocardial infarction; F17.200 Nicotine dependence, unspecified, uncomplicated; F12.10 Cannabis abuse, uncomplicated; Z86.19 Personal history of other infectious and parasitic diseases; Z79.2 Long term (current) use of antibiotics; Z79.899 Other long term (current) drug therapy; Z79.82 Long term (current) use of aspirin; Z79.84 Long term (current) use of oral hypoglycemic drugs; Y83.8 Other surgical procedures as the cause of abnormal reaction of the patient, or of later complication, without mention of misadventure at the time of the procedure
CPT/HCPCS: 36416; 82948; 97597; A6223; A4663; A6021; A6446

== ENCOUNTER 2018-12-04 09:00 | Day surgery (SDC) | payer MEDICARE, MEDICAID ==
[2018-12-04] MEDS ORDERED: LIDOcaine 2% 5ml jelly ONE (10:00)
== END 2018-12-04 11:22 | disposition home or self-care (01) ==
LOC: WOUND CARE 09:00
PROVIDERS: ATTEND Surgery
DX: T81.30XD Disruption of wound, unspecified, subsequent encounter (principal); E11.621 Type 2 diabetes mellitus with foot ulcer; L97.512 Non-pressure chronic ulcer of other part of right foot with fat layer exposed; E11.40 Type 2 diabetes mellitus with diabetic neuropathy, unspecified; E11.65 Type 2 diabetes mellitus with hyperglycemia; I10 Essential (primary) hypertension; I25.10 Atherosclerotic heart disease of native coronary artery without angina pectoris; K21.9 Gastro-esophageal reflux disease without esophagitis; G89.29 Other chronic pain; E78.5 Hyperlipidemia, unspecified; I25.2 Old myocardial infarction; F17.200 Nicotine dependence, unspecified, uncomplicated; F12.10 Cannabis abuse, uncomplicated; Z86.19 Personal history of other infectious and parasitic diseases; Z79.2 Long term (current) use of antibiotics; Z79.899 Other long term (current) drug therapy; Z79.82 Long term (current) use of aspirin; Z79.84 Long term (current) use of oral hypoglycemic drugs; Y83.8 Other surgical procedures as the cause of abnormal reaction of the patient, or of later complication, without mention of misadventure at the time of the procedure
CPT/HCPCS: 36416; 82948; 97597; A6223; A4663; A6021; A6196; A6446; A6449

== ENCOUNTER 2018-12-11 08:55 | Outpatient (CLI) | payer MEDICARE, MEDICAID | END 2018-12-11 10:35 | disposition home or self-care (01) | LOC: WOUND CARE 08:55 → EDSTATUS 09:00 → WOUND CARE 10:35 | PROVIDERS: ATTEND Surgery | DX: T81.30XD Disruption of wound, unspecified, subsequent encounter (principal); E11.621 Type 2 diabetes mellitus with foot ulcer; L97.512 Non-pressure chronic ulcer of other part of right foot with fat layer exposed; E11.40 Type 2 diabetes mellitus with diabetic neuropathy, unspecified; E11.65 Type 2 diabetes mellitus with hyperglycemia; I10 Essential (primary) hypertension; I25.10 Atherosclerotic heart disease of native coronary artery without angina pectoris; K21.9 Gastro-esophageal reflux disease without esophagitis; G89.29 Other chronic pain; E78.5 Hyperlipidemia, unspecified; I25.2 Old myocardial infarction; F17.200 Nicotine dependence, unspecified, uncomplicated; F12.10 Cannabis abuse, uncomplicated; Z86.19 Personal history of other infectious and parasitic diseases; Z79.2 Long term (current) use of antibiotics; Z79.899 Other long term (current) drug therapy; Z79.82 Long term (current) use of aspirin; Z79.84 Long term (current) use of oral hypoglycemic drugs; Y83.8 Other surgical procedures as the cause of abnormal reaction of the patient, or of later complication, without mention of misadventure at the time of the procedure | CPT/HCPCS: 36416; 82948; A6223; G0463; A4663; A6196; A6446; A6449 ==

== ENCOUNTER 2018-12-17 08:40 | Day surgery (SDC) | payer MEDICARE, MEDICAID ==
[2018-12-17] MEDS ORDERED: LIDOcaine 2% 5ml jelly ONE (09:34)
== END 2018-12-17 10:44 | disposition home or self-care (01) ==
LOC: WOUND CARE 08:40
PROVIDERS: ATTEND Surgery
DX: T81.30XD Disruption of wound, unspecified, subsequent encounter (principal); E11.621 Type 2 diabetes mellitus with foot ulcer; L97.512 Non-pressure chronic ulcer of other part of right foot with fat layer exposed; E11.40 Type 2 diabetes mellitus with diabetic neuropathy, unspecified; E11.65 Type 2 diabetes mellitus with hyperglycemia; I10 Essential (primary) hypertension; I25.10 Atherosclerotic heart disease of native coronary artery without angina pectoris; K21.9 Gastro-esophageal reflux disease without esophagitis; G89.29 Other chronic pain; E78.5 Hyperlipidemia, unspecified; I25.2 Old myocardial infarction; F17.200 Nicotine dependence, unspecified, uncomplicated; F12.10 Cannabis abuse, uncomplicated; Z86.19 Personal history of other infectious and parasitic diseases; Z79.2 Long term (current) use of antibiotics; Z79.899 Other long term (current) drug therapy; Z79.82 Long term (current) use of aspirin; Z79.84 Long term (current) use of oral hypoglycemic drugs; Y83.8 Other surgical procedures as the cause of abnormal reaction of the patient, or of later complication, without mention of misadventure at the time of the procedure
CPT/HCPCS: 36416; 82948; 97597; A6222; A4663; A6021; A6196; A6446

== ENCOUNTER 2018-12-24 08:55 | Day surgery (SDC) | payer MEDICARE, MEDICAID | END 2018-12-24 11:04 | disposition home or self-care (01) | LOC: WOUND CARE 08:55 | PROVIDERS: ATTEND Surgery | DX: T81.30XD Disruption of wound, unspecified, subsequent encounter (principal); E11.621 Type 2 diabetes mellitus with foot ulcer; L97.512 Non-pressure chronic ulcer of other part of right foot with fat layer exposed; E11.40 Type 2 diabetes mellitus with diabetic neuropathy, unspecified; E11.65 Type 2 diabetes mellitus with hyperglycemia; I10 Essential (primary) hypertension; I25.10 Atherosclerotic heart disease of native coronary artery without angina pectoris; K21.9 Gastro-esophageal reflux disease without esophagitis; G89.29 Other chronic pain; E78.5 Hyperlipidemia, unspecified; I25.2 Old myocardial infarction; F17.200 Nicotine dependence, unspecified, uncomplicated; F12.10 Cannabis abuse, uncomplicated; Z86.19 Personal history of other infectious and parasitic diseases; Z79.2 Long term (current) use of antibiotics; Z79.899 Other long term (current) drug therapy; Z79.82 Long term (current) use of aspirin; Z79.84 Long term (current) use of oral hypoglycemic drugs; Y83.8 Other surgical procedures as the cause of abnormal reaction of the patient, or of later complication, without mention of misadventure at the time of the procedure | CPT/HCPCS: 36416; 82948; 97597; A6223; A4663; A6021; A6446 ==

== ENCOUNTER 2018-12-31 08:43 | Day surgery (SDC) | payer MEDICARE, MEDICAID ==
[2018-12-31] MEDS ORDERED: LIDOcaine 2% 5ml jelly ONE (09:17)
== END 2018-12-31 10:10 | disposition home or self-care (01) ==
LOC: WOUND CARE 08:43
PROVIDERS: ATTEND Surgery
DX: T81.30XD Disruption of wound, unspecified, subsequent encounter (principal); E11.621 Type 2 diabetes mellitus with foot ulcer; L97.512 Non-pressure chronic ulcer of other part of right foot with fat layer exposed; E11.40 Type 2 diabetes mellitus with diabetic neuropathy, unspecified; E11.65 Type 2 diabetes mellitus with hyperglycemia; I10 Essential (primary) hypertension; I25.10 Atherosclerotic heart disease of native coronary artery without angina pectoris; K21.9 Gastro-esophageal reflux disease without esophagitis; G89.29 Other chronic pain; E78.5 Hyperlipidemia, unspecified; I25.2 Old myocardial infarction; F17.200 Nicotine dependence, unspecified, uncomplicated; F12.10 Cannabis abuse, uncomplicated; Z86.19 Personal history of other infectious and parasitic diseases; Z79.2 Long term (current) use of antibiotics; Z79.899 Other long term (current) drug therapy; Z79.82 Long term (current) use of aspirin; Z79.84 Long term (current) use of oral hypoglycemic drugs; Y83.8 Other surgical procedures as the cause of abnormal reaction of the patient, or of later complication, without mention of misadventure at the time of the procedure
CPT/HCPCS: 36416; 82948; 97597; A6223; A4663; A6021; A6446

== ENCOUNTER 2019-01-14 08:57 | Outpatient (CLI) | payer MEDICARE, MEDICAID ==
[2019-01-14] MEDS ORDERED: LIDOcaine 2% 5ml jelly ONE (09:43)
== END 2019-01-14 10:37 | disposition home or self-care (01) ==
LOC: WOUND CARE 08:57 → EDSTATUS 09:00 → WOUND CARE 10:37
PROVIDERS: ATTEND Surgery
DX: T81.30XD Disruption of wound, unspecified, subsequent encounter (principal); E11.621 Type 2 diabetes mellitus with foot ulcer; L97.512 Non-pressure chronic ulcer of other part of right foot with fat layer exposed; E11.40 Type 2 diabetes mellitus with diabetic neuropathy, unspecified; E11.65 Type 2 diabetes mellitus with hyperglycemia; I10 Essential (primary) hypertension; I25.10 Atherosclerotic heart disease of native coronary artery without angina pectoris; K21.9 Gastro-esophageal reflux disease without esophagitis; G89.29 Other chronic pain; E78.5 Hyperlipidemia, unspecified; I25.2 Old myocardial infarction; F17.200 Nicotine dependence, unspecified, uncomplicated; F12.10 Cannabis abuse, uncomplicated; Z86.19 Personal history of other infectious and parasitic diseases; Z79.2 Long term (current) use of antibiotics; Z79.899 Other long term (current) drug therapy; Z79.82 Long term (current) use of aspirin; Z79.84 Long term (current) use of oral hypoglycemic drugs; Y83.8 Other surgical procedures as the cause of abnormal reaction of the patient, or of later complication, without mention of misadventure at the time of the procedure
CPT/HCPCS: 36416; 82948; A6223; G0463; A4663; A6021; A6446

== ENCOUNTER 2019-01-21 09:37 | Outpatient (CLI) | payer MEDICARE, MEDICAID ==
[~2019-01-21 09:37] MED LIST changes: +LIDOcaine/PRILOcaine 5gm cream TP ONE
== END 2019-01-21 10:26 | disposition home or self-care (01) ==
LOC: WOUND CARE 09:37
PROVIDERS: ATTEND Surgery
DX: T81.30XD Disruption of wound, unspecified, subsequent encounter (principal); E11.621 Type 2 diabetes mellitus with foot ulcer; L97.512 Non-pressure chronic ulcer of other part of right foot with fat layer exposed; E11.40 Type 2 diabetes mellitus with diabetic neuropathy, unspecified; E11.65 Type 2 diabetes mellitus with hyperglycemia; I10 Essential (primary) hypertension; I25.10 Atherosclerotic heart disease of native coronary artery without angina pectoris; K21.9 Gastro-esophageal reflux disease without esophagitis; G89.29 Other chronic pain; E78.5 Hyperlipidemia, unspecified; I25.2 Old myocardial infarction; F17.200 Nicotine dependence, unspecified, uncomplicated; F12.10 Cannabis abuse, uncomplicated; Z86.19 Personal history of other infectious and parasitic diseases; Z79.2 Long term (current) use of antibiotics; Z79.899 Other long term (current) drug therapy; Z79.82 Long term (current) use of aspirin; Z79.84 Long term (current) use of oral hypoglycemic drugs; Y83.8 Other surgical procedures as the cause of abnormal reaction of the patient, or of later complication, without mention of misadventure at the time of the procedure
CPT/HCPCS: 36416; 82948; 97597; A4663; A6021; A6154; A6446

== ENCOUNTER 2019-01-22 10:41 | Outpatient (CLI) | payer MEDICARE, MEDICAID ==
[~2019-01-22 10:41] MED LIST changes: -LIDOcaine/PRILOcaine 5gm cream TP ONE
== END 2019-01-22 23:59 | disposition home or self-care (01) ==
LOC: RAD 10:41
PROVIDERS: ATTEND Surgery
DX: M86.9 Osteomyelitis, unspecified (principal); I10 Essential (primary) hypertension; E11.9 Type 2 diabetes mellitus without complications
CPT/HCPCS: 73718

== ENCOUNTER 2019-01-25 12:29 | Emergency (ER) | payer MEDICARE, MEDICAID ==
[~2019-01-25] VITALS: Ht 193 cm; Wt 154.0 kg
[2019-01-25 13:41] VITALS: BP 152/77
[2019-01-25] MEDS ORDERED: CefTRIAXone 2gm/D5W 50ml 50 ML IV ONE (14:35)
[2019-01-25] MEDS ORDERED: vancomycin/NS 1 GM ADD-VANTAGE 250 ML IV ONE (14:35)
--- NOTE | 2019-01-25 14:36 | NUR ---
This nurse was informed by laboratory machinist that the patient eloped and informed her his treatment is taking too long. Pt's ordered labs and medications were initiated by the provider approximately 10-15 minutes ago.
== END 2019-01-25 14:40 | disposition left against medical advice (07) ==
LOC: ER 12:29
DX: L03.116 Cellulitis of left lower limb (principal); L03.115 Cellulitis of right lower limb; M86.9 Osteomyelitis, unspecified; I10 Essential (primary) hypertension; M79.671 Pain in right foot; M79.672 Pain in left foot; G89.29 Other chronic pain; I25.10 Atherosclerotic heart disease of native coronary artery without angina pectoris; I25.2 Old myocardial infarction; K21.9 Gastro-esophageal reflux disease without esophagitis; F12.90 Cannabis use, unspecified, uncomplicated; Z98.61 Coronary angioplasty status; Z88.8 Allergy status to other drugs, medicaments and biological substances; Z79.82 Long term (current) use of aspirin; Z79.899 Other long term (current) drug therapy
CPT/HCPCS: 99284; J3370

== ENCOUNTER 2019-01-28 09:47 | Day surgery (SDC) | payer MEDICARE, MEDICAID ==
[~2019-01-28 09:47] MED LIST changes: +LIDOcaine 2% 5ml jelly ONE
== END 2019-01-28 10:50 | disposition home or self-care (01) ==
LOC: WOUND CARE 09:47
PROVIDERS: ATTEND Surgery
DX: T81.30XD Disruption of wound, unspecified, subsequent encounter (principal); E11.621 Type 2 diabetes mellitus with foot ulcer; L97.512 Non-pressure chronic ulcer of other part of right foot with fat layer exposed; E11.40 Type 2 diabetes mellitus with diabetic neuropathy, unspecified; E11.65 Type 2 diabetes mellitus with hyperglycemia; I10 Essential (primary) hypertension; I25.10 Atherosclerotic heart disease of native coronary artery without angina pectoris; K21.9 Gastro-esophageal reflux disease without esophagitis; G89.29 Other chronic pain; E78.5 Hyperlipidemia, unspecified; I25.2 Old myocardial infarction; F17.200 Nicotine dependence, unspecified, uncomplicated; F12.10 Cannabis abuse, uncomplicated; Z86.19 Personal history of other infectious and parasitic diseases; Z79.2 Long term (current) use of antibiotics; Z79.899 Other long term (current) drug therapy; Z79.82 Long term (current) use of aspirin; Z79.84 Long term (current) use of oral hypoglycemic drugs; Y83.8 Other surgical procedures as the cause of abnormal reaction of the patient, or of later complication, without mention of misadventure at the time of the procedure
CPT/HCPCS: 11042; 36416; 82948; A6223; A4663; A6021; A6446

== ENCOUNTER 2019-02-04 08:55 | Day surgery (SDC) | payer MEDICARE, MEDICAID ==
[~2019-02-04 08:55] MED LIST changes: -LIDOcaine 2% 5ml jelly ONE
[2019-02-04] MEDS ORDERED: LIDOcaine 2% 5ml jelly ONE (10:00)
== END 2019-02-04 10:31 | disposition home or self-care (01) ==
LOC: WOUND CARE 08:55
PROVIDERS: ATTEND Surgery
DX: T81.30XD Disruption of wound, unspecified, subsequent encounter (principal); E11.621 Type 2 diabetes mellitus with foot ulcer; L97.512 Non-pressure chronic ulcer of other part of right foot with fat layer exposed; E11.40 Type 2 diabetes mellitus with diabetic neuropathy, unspecified; E11.65 Type 2 diabetes mellitus with hyperglycemia; I10 Essential (primary) hypertension; I25.10 Atherosclerotic heart disease of native coronary artery without angina pectoris; K21.9 Gastro-esophageal reflux disease without esophagitis; G89.29 Other chronic pain; E78.5 Hyperlipidemia, unspecified; I25.2 Old myocardial infarction; F17.200 Nicotine dependence, unspecified, uncomplicated; F12.10 Cannabis abuse, uncomplicated; Z86.19 Personal history of other infectious and parasitic diseases; Z79.2 Long term (current) use of antibiotics; Z79.899 Other long term (current) drug therapy; Z79.82 Long term (current) use of aspirin; Z79.84 Long term (current) use of oral hypoglycemic drugs; Y83.8 Other surgical procedures as the cause of abnormal reaction of the patient, or of later complication, without mention of misadventure at the time of the procedure
CPT/HCPCS: 11042; 36416; 82948; A6223; A4663; A6021; A6446

== ENCOUNTER 2019-02-04 10:42 | Outpatient (CLI) | payer MEDICARE, MEDICAID ==
[2019-02-04 11:24] LABS: BASOPHILS % (AUTO) 0.6 % (0-1); EOSINOPHILS # (AUTO) 0.3 X10'3 (0-0.9); EOSINOPHILS % (AUTO) 4.8 % (0-6); HEMOGLOBIN 13.2 g/dl (14.0-17.9); LYMPHOCYTES # (AUTO) 1.1 X10'3 (1.1-4.8); LYMPHOCYTES % (AUTO) 18.5 % (21-51); MEAN CORPUSCULAR HEMOGLOBIN 27.5 PG (27.0-31.0); MEAN CORPUSCULAR HGB CONC 33.8 g/dL (33.0-36.5); MEAN CORPUSCULAR VOLUME 81.3 FL (78-98); MEAN PLATELET VOLUME 7.3 FL (7.4-10.4); MONOCYTES # (AUTO) 0.5 X10'3 (0-0.9); MONOCYTES % (AUTO) 7.6 % (2-12); NEUTROPHILS # (AUTO) 4.2 X10'3 (1.8-7.7); NEUTROPHILS % (AUTO) 68.5 % (42-75); PLATELET COUNT 268 X10'3 (140-440); RED BLOOD COUNT 4.79 X10'6 (4.70-6.10); RED CELL DISTRIBUTION WIDTH 17.5 % (11.5-14.5); WHITE BLOOD COUNT 6.1 X10'3 (4.5-11.0)
[2019-02-04 11:31] LABS: ALBUMIN 3.8 G/DL (3.4-5.0); ANION GAP 7 (8-16); BLOOD UREA NITROGEN 20 MG/DL (7-18); BUN/CREATININE RATIO 26.3 (5.4-32.0); CALCIUM 9.6 MG/DL (8.5-10.1); CHLORIDE 100 MMOL/L (99-107); CREATININE 0.76 MG/DL (0.60-1.10); GLUCOSE 101 MG/DL (70-104); POTASSIUM 4.1 MMOL/L (3.5-5.1); SODIUM 140 MMOL/L (135-145); TOTAL CARBON DIOXIDE 32.9 MMOL/L (24-32); eGFR > 90 ML/MIN
[2019-02-04 11:34] LABS: PARTIAL THROMBOPLASTIN TIME 27 SECONDS (22-32)
== END 2019-02-04 23:59 | disposition home or self-care (01) ==
LOC: LAB 10:42
PROVIDERS: ATTEND Internal Medicine Interventional Cardiology
DX: I10 Essential (primary) hypertension (principal); I25.10 Atherosclerotic heart disease of native coronary artery without angina pectoris; Z72.89 Other problems related to lifestyle; E11.65 Type 2 diabetes mellitus with hyperglycemia
CPT/HCPCS: 36415; 80048; 85025; 85610; 85730

== ENCOUNTER 2019-02-10 14:00 | Day surgery (SDC) | payer MEDICAID, MEDICARE ==
[~2019-02-10] VITALS: Ht 193 cm; Wt 146.1 kg
[2019-02-10] VITALS (7 sets, daily range): BP systolic 132–145; BP diastolic 69–98
[2019-02-10] MEDS ORDERED: LIDOcaine/PRILOcaine 5gm cream TP ONE (14:20)
[2019-02-10] MEDS ORDERED: diphenhydrAMINE 25mg capsule PO PRN (14:20)
[2019-02-10] MEDS ORDERED: normal saline 1,000 ML IV SCH (14:20)
[2019-02-10] MEDS ORDERED: LORazepam 0.5 MG tablet PO PRN (14:20)
[2019-02-10] MEDS ORDERED: CLIN-90 PO (14:39)
[2019-02-10] MEDS ORDERED: DOCU250C34 PO (14:39)
[2019-02-10] MEDS ORDERED: FURO-149 PO (14:39)
[2019-02-10] MEDS ORDERED: VARE1TAB22 PO (14:39)
[2019-02-10] MEDS ORDERED: OMEG1CAP2 PO (14:39)
[2019-02-10] MEDS ORDERED: PREG150C46 PO (14:39)
[2019-02-10] MEDS ORDERED: LOSA1TAB41 PO (14:39)
== END 2019-02-10 20:05 | disposition home or self-care (01) ==
LOC: SSTAY O 14:00
PROVIDERS: ATTEND Internal Medicine Interventional Cardiology
DX: R94.39 Abnormal result of other cardiovascular function study (principal); R07.9 Chest pain, unspecified; I25.10 Atherosclerotic heart disease of native coronary artery without angina pectoris; I10 Essential (primary) hypertension; G47.33 Obstructive sleep apnea (adult) (pediatric); E78.5 Hyperlipidemia, unspecified; E11.9 Type 2 diabetes mellitus without complications; E66.01 Morbid (severe) obesity due to excess calories; Z68.39 Body mass index [BMI] 39.0-39.9, adult; Z87.891 Personal history of nicotine dependence; Z79.899 Other long term (current) drug therapy; Z79.82 Long term (current) use of aspirin; Z79.01 Long term (current) use of anticoagulants; Z88.8 Allergy status to other drugs, medicaments and biological substances
CPT/HCPCS: 93005; 93458; C1769; C1894; J7030; Q0163; 99152; 99153; A4620; A6258

== ENCOUNTER 2019-02-11 08:55 | Day surgery (SDC) | payer MEDICARE, MEDICAID ==
[~2019-02-11 08:55] MED LIST changes: +CLIN-90 PO; +DOCU250C34 PO; +FURO-149 PO; +LIDOcaine 1% (10mg/ml)w/preservative injection 20ml MDV ONE; +LOSA1TAB41 PO; +OMEG1CAP2 PO; +PREG150C46 PO; +VARE1TAB22 PO; +fentaNYL/PF 50MCG/1 ML 2ML syringe ONE; +heparin 1,000unit/ml 10ml vial 10 ML ONE; +iohexol 350MG/ML 100ml bottle IV ONE; +midazolam 2 mg/2 ml injection ONE; +nitroGLYCERIN-Tridil 50MG/D5W 250 ML IV ONE; +verapamil 2.5 mg/ml inj IV ONE
[2019-02-11] MEDS ORDERED: LIDOcaine 2% 5ml jelly ONE (09:59)
== END 2019-02-11 11:30 | disposition home or self-care (01) ==
LOC: WOUND CARE 08:55
PROVIDERS: ATTEND Surgery
DX: T81.30XD Disruption of wound, unspecified, subsequent encounter (principal); E11.621 Type 2 diabetes mellitus with foot ulcer; L97.512 Non-pressure chronic ulcer of other part of right foot with fat layer exposed; E11.40 Type 2 diabetes mellitus with diabetic neuropathy, unspecified; E11.65 Type 2 diabetes mellitus with hyperglycemia; I10 Essential (primary) hypertension; I25.10 Atherosclerotic heart disease of native coronary artery without angina pectoris; K21.9 Gastro-esophageal reflux disease without esophagitis; G89.29 Other chronic pain; E78.5 Hyperlipidemia, unspecified; I25.2 Old myocardial infarction; F17.200 Nicotine dependence, unspecified, uncomplicated; F12.10 Cannabis abuse, uncomplicated; Z86.19 Personal history of other infectious and parasitic diseases; Z79.2 Long term (current) use of antibiotics; Z79.899 Other long term (current) drug therapy; Z79.82 Long term (current) use of aspirin; Z79.84 Long term (current) use of oral hypoglycemic drugs; Y83.8 Other surgical procedures as the cause of abnormal reaction of the patient, or of later complication, without mention of misadventure at the time of the procedure
CPT/HCPCS: 11042; 36416; 82948; A6223; J1644; J2001; J2250; J3010; Q9967; 97597; A4663; A6021; A6446; J3490

== ENCOUNTER → 2019-02-26 | Day surgery (SDC) | payer MEDICARE, MEDICAID ==
[~2019-02-26] MED LIST changes: -LIDOcaine 1% (10mg/ml)w/preservative injection 20ml MDV ONE; +LIDOcaine/PRILOcaine 5gm cream TP ONE; -LISI-600 PO; -fentaNYL/PF 50MCG/1 ML 2ML syringe ONE; -heparin 1,000unit/ml 10ml vial 10 ML ONE; -iohexol 350MG/ML 100ml bottle IV ONE; -midazolam 2 mg/2 ml injection ONE; -nitroGLYCERIN-Tridil 50MG/D5W 250 ML IV ONE; -verapamil 2.5 mg/ml inj IV ONE
== END | disposition home or self-care (01) ==
LOC: WOUND CARE 08:45
PROVIDERS: ATTEND Surgery
DX: T81.30XD Disruption of wound, unspecified, subsequent encounter (principal); E11.621 Type 2 diabetes mellitus with foot ulcer; L97.512 Non-pressure chronic ulcer of other part of right foot with fat layer exposed; E11.40 Type 2 diabetes mellitus with diabetic neuropathy, unspecified; E11.65 Type 2 diabetes mellitus with hyperglycemia; I10 Essential (primary) hypertension; I25.10 Atherosclerotic heart disease of native coronary artery without angina pectoris; K21.9 Gastro-esophageal reflux disease without esophagitis; G89.29 Other chronic pain; E78.5 Hyperlipidemia, unspecified; I25.2 Old myocardial infarction; F17.200 Nicotine dependence, unspecified, uncomplicated; F12.10 Cannabis abuse, uncomplicated; Z86.19 Personal history of other infectious and parasitic diseases; Z79.2 Long term (current) use of antibiotics; Z79.899 Other long term (current) drug therapy; Z79.82 Long term (current) use of aspirin; Z79.84 Long term (current) use of oral hypoglycemic drugs; Y83.8 Other surgical procedures as the cause of abnormal reaction of the patient, or of later complication, without mention of misadventure at the time of the procedure
CPT/HCPCS: 15275; 36416; 82948; A6209; A6222; Q4187; A4663; A6250; A6446

== ENCOUNTER 2019-03-13 08:55 | Day surgery (SDC) | payer MEDICARE, MEDICAID ==
[~2019-03-13 08:55] MED LIST changes: -LIDOcaine/PRILOcaine 5gm cream TP ONE
[2019-03-13] MEDS ORDERED: LIDOcaine 2% 5ml jelly ONE (09:44)
== END 2019-03-13 10:51 | disposition home or self-care (01) ==
LOC: WOUND CARE 08:55
PROVIDERS: ATTEND Surgery
DX: T81.30XD Disruption of wound, unspecified, subsequent encounter (principal); E11.621 Type 2 diabetes mellitus with foot ulcer; L97.512 Non-pressure chronic ulcer of other part of right foot with fat layer exposed; E11.40 Type 2 diabetes mellitus with diabetic neuropathy, unspecified; E11.65 Type 2 diabetes mellitus with hyperglycemia; E11.69 Type 2 diabetes mellitus with other specified complication; M86.9 Osteomyelitis, unspecified; I10 Essential (primary) hypertension; I25.10 Atherosclerotic heart disease of native coronary artery without angina pectoris; K21.9 Gastro-esophageal reflux disease without esophagitis; G89.29 Other chronic pain; E78.5 Hyperlipidemia, unspecified; I25.2 Old myocardial infarction; E66.01 Morbid (severe) obesity due to excess calories; G47.33 Obstructive sleep apnea (adult) (pediatric); F17.200 Nicotine dependence, unspecified, uncomplicated; F12.10 Cannabis abuse, uncomplicated; Z98.61 Coronary angioplasty status; Z68.39 Body mass index [BMI] 39.0-39.9, adult; Z79.899 Other long term (current) drug therapy; Z79.01 Long term (current) use of anticoagulants; Z79.2 Long term (current) use of antibiotics; Z79.84 Long term (current) use of oral hypoglycemic drugs; Z79.82 Long term (current) use of aspirin; Z86.19 Personal history of other infectious and parasitic diseases; Y83.8 Other surgical procedures as the cause of abnormal reaction of the patient, or of later complication, without mention of misadventure at the time of the procedure
CPT/HCPCS: 36416; 73620; 82948; 87070; 87075; 87077; 87102; 87186; A4663; A6021; A6154; A6446

== ENCOUNTER 2019-03-19 08:58 | Day surgery (SDC) | payer MEDICARE, MEDICAID ==
[2019-03-19] MEDS ORDERED: LIDOcaine/PRILOcaine 5gm cream TP ONE (09:21)
== END 2019-03-19 11:27 | disposition home or self-care (01) ==
LOC: WOUND CARE 08:58
PROVIDERS: ATTEND Surgery
DX: T81.30XD Disruption of wound, unspecified, subsequent encounter (principal); E11.621 Type 2 diabetes mellitus with foot ulcer; L97.512 Non-pressure chronic ulcer of other part of right foot with fat layer exposed; E11.65 Type 2 diabetes mellitus with hyperglycemia; E11.40 Type 2 diabetes mellitus with diabetic neuropathy, unspecified; E11.69 Type 2 diabetes mellitus with other specified complication; M86.9 Osteomyelitis, unspecified; I25.10 Atherosclerotic heart disease of native coronary artery without angina pectoris; I10 Essential (primary) hypertension; E66.01 Morbid (severe) obesity due to excess calories; K21.9 Gastro-esophageal reflux disease without esophagitis; E78.5 Hyperlipidemia, unspecified; I25.2 Old myocardial infarction; G47.33 Obstructive sleep apnea (adult) (pediatric); G89.29 Other chronic pain; F32.9 Major depressive disorder, single episode, unspecified; F41.9 Anxiety disorder, unspecified; F12.10 Cannabis abuse, uncomplicated; F17.200 Nicotine dependence, unspecified, uncomplicated; Z79.899 Other long term (current) drug therapy; Z79.84 Long term (current) use of oral hypoglycemic drugs; Z79.01 Long term (current) use of anticoagulants; Z79.2 Long term (current) use of antibiotics; Z79.82 Long term (current) use of aspirin; Z86.19 Personal history of other infectious and parasitic diseases; Z98.61 Coronary angioplasty status; Z68.36 Body mass index [BMI] 36.0-36.9, adult; Z88.9 Allergy status to unspecified drugs, medicaments and biological substances; Y83.8 Other surgical procedures as the cause of abnormal reaction of the patient, or of later complication, without mention of misadventure at the time of the procedure
CPT/HCPCS: 11042; 36416; 82948; A6209; A4663; A6021; A6154; A6446

== ENCOUNTER 2019-03-26 08:55 | Day surgery (SDC) | payer MEDICARE, MEDICAID ==
[2019-03-26] MEDS ORDERED: LIDOcaine 2% 5ml jelly ONE (10:03)
== END 2019-03-26 10:31 | disposition home or self-care (01) ==
LOC: WOUND CARE 08:55
PROVIDERS: ATTEND Surgery
DX: T81.30XD Disruption of wound, unspecified, subsequent encounter (principal); E11.621 Type 2 diabetes mellitus with foot ulcer; L97.512 Non-pressure chronic ulcer of other part of right foot with fat layer exposed; E11.65 Type 2 diabetes mellitus with hyperglycemia; E11.40 Type 2 diabetes mellitus with diabetic neuropathy, unspecified; E11.69 Type 2 diabetes mellitus with other specified complication; M86.9 Osteomyelitis, unspecified; I25.10 Atherosclerotic heart disease of native coronary artery without angina pectoris; I10 Essential (primary) hypertension; E66.01 Morbid (severe) obesity due to excess calories; K21.9 Gastro-esophageal reflux disease without esophagitis; E78.5 Hyperlipidemia, unspecified; I25.2 Old myocardial infarction; G47.33 Obstructive sleep apnea (adult) (pediatric); G89.29 Other chronic pain; F32.9 Major depressive disorder, single episode, unspecified; F41.9 Anxiety disorder, unspecified; F12.10 Cannabis abuse, uncomplicated; F17.200 Nicotine dependence, unspecified, uncomplicated; Z79.899 Other long term (current) drug therapy; Z79.84 Long term (current) use of oral hypoglycemic drugs; Z79.01 Long term (current) use of anticoagulants; Z79.2 Long term (current) use of antibiotics; Z79.82 Long term (current) use of aspirin; Z86.19 Personal history of other infectious and parasitic diseases; Z98.61 Coronary angioplasty status; Z68.36 Body mass index [BMI] 36.0-36.9, adult; Z88.9 Allergy status to unspecified drugs, medicaments and biological substances; Y83.8 Other surgical procedures as the cause of abnormal reaction of the patient, or of later complication, without mention of misadventure at the time of the procedure
CPT/HCPCS: 15275; 36416; 82948; A6209; Q4187; A4663; A6250; A6446

== ENCOUNTER 2019-04-02 08:51 | Day surgery (SDC) | payer MEDICARE, MEDICAID ==
[2019-04-02] MEDS ORDERED: LIDOcaine 2% 5ml jelly ONE (09:44)
== END 2019-04-02 10:31 | disposition home or self-care (01) ==
LOC: WOUND CARE 08:51
PROVIDERS: ATTEND Surgery
DX: T81.30XD Disruption of wound, unspecified, subsequent encounter (principal); E11.621 Type 2 diabetes mellitus with foot ulcer; L97.512 Non-pressure chronic ulcer of other part of right foot with fat layer exposed; E11.65 Type 2 diabetes mellitus with hyperglycemia; E11.40 Type 2 diabetes mellitus with diabetic neuropathy, unspecified; E11.69 Type 2 diabetes mellitus with other specified complication; M86.9 Osteomyelitis, unspecified; I25.10 Atherosclerotic heart disease of native coronary artery without angina pectoris; I10 Essential (primary) hypertension; E66.01 Morbid (severe) obesity due to excess calories; K21.9 Gastro-esophageal reflux disease without esophagitis; E78.5 Hyperlipidemia, unspecified; I25.2 Old myocardial infarction; G47.33 Obstructive sleep apnea (adult) (pediatric); G89.29 Other chronic pain; F32.9 Major depressive disorder, single episode, unspecified; F41.9 Anxiety disorder, unspecified; F12.10 Cannabis abuse, uncomplicated; F17.200 Nicotine dependence, unspecified, uncomplicated; Z79.899 Other long term (current) drug therapy; Z79.84 Long term (current) use of oral hypoglycemic drugs; Z79.01 Long term (current) use of anticoagulants; Z79.2 Long term (current) use of antibiotics; Z79.82 Long term (current) use of aspirin; Z86.19 Personal history of other infectious and parasitic diseases; Z98.61 Coronary angioplasty status; Z68.36 Body mass index [BMI] 36.0-36.9, adult; Z88.9 Allergy status to unspecified drugs, medicaments and biological substances; Y83.8 Other surgical procedures as the cause of abnormal reaction of the patient, or of later complication, without mention of misadventure at the time of the procedure
CPT/HCPCS: 36416; 82948; 97597; A6209; A6222; A4663; A6021; A6446

== ENCOUNTER 2019-04-09 09:00 | Day surgery (SDC) | payer MEDICARE, MEDICAID ==
[2019-04-09] MEDS ORDERED: LIDOcaine/PRILOcaine 5gm cream TP ONE (09:16)
== END 2019-04-09 10:49 | disposition home or self-care (01) ==
LOC: WOUND CARE 09:00
PROVIDERS: ATTEND Surgery
DX: T81.30XD Disruption of wound, unspecified, subsequent encounter (principal); E11.621 Type 2 diabetes mellitus with foot ulcer; L97.512 Non-pressure chronic ulcer of other part of right foot with fat layer exposed; E11.65 Type 2 diabetes mellitus with hyperglycemia; E11.40 Type 2 diabetes mellitus with diabetic neuropathy, unspecified; E11.69 Type 2 diabetes mellitus with other specified complication; M86.9 Osteomyelitis, unspecified; I25.10 Atherosclerotic heart disease of native coronary artery without angina pectoris; I10 Essential (primary) hypertension; E66.01 Morbid (severe) obesity due to excess calories; K21.9 Gastro-esophageal reflux disease without esophagitis; E78.5 Hyperlipidemia, unspecified; I25.2 Old myocardial infarction; G47.33 Obstructive sleep apnea (adult) (pediatric); G89.29 Other chronic pain; F32.9 Major depressive disorder, single episode, unspecified; F41.9 Anxiety disorder, unspecified; F12.10 Cannabis abuse, uncomplicated; F17.200 Nicotine dependence, unspecified, uncomplicated; Z79.899 Other long term (current) drug therapy; Z79.84 Long term (current) use of oral hypoglycemic drugs; Z79.01 Long term (current) use of anticoagulants; Z79.2 Long term (current) use of antibiotics; Z79.82 Long term (current) use of aspirin; Z86.19 Personal history of other infectious and parasitic diseases; Z98.61 Coronary angioplasty status; Z68.36 Body mass index [BMI] 36.0-36.9, adult; Z88.9 Allergy status to unspecified drugs, medicaments and biological substances; Y83.8 Other surgical procedures as the cause of abnormal reaction of the patient, or of later complication, without mention of misadventure at the time of the procedure
CPT/HCPCS: 15275; 36416; 82948; A6209; Q4186; A4663; A6154; A6250; A6441

== ENCOUNTER 2019-04-16 08:53 | Day surgery (SDC) | payer MEDICARE, MEDICAID | END 2019-04-16 12:30 | disposition home or self-care (01) | LOC: WOUND CARE 08:53 | PROVIDERS: ATTEND Surgery | DX: T81.30XD Disruption of wound, unspecified, subsequent encounter (principal); E11.621 Type 2 diabetes mellitus with foot ulcer; L97.512 Non-pressure chronic ulcer of other part of right foot with fat layer exposed; E11.65 Type 2 diabetes mellitus with hyperglycemia; E11.40 Type 2 diabetes mellitus with diabetic neuropathy, unspecified; E11.69 Type 2 diabetes mellitus with other specified complication; M86.9 Osteomyelitis, unspecified; I25.10 Atherosclerotic heart disease of native coronary artery without angina pectoris; I10 Essential (primary) hypertension; E66.01 Morbid (severe) obesity due to excess calories; K21.9 Gastro-esophageal reflux disease without esophagitis; E78.5 Hyperlipidemia, unspecified; I25.2 Old myocardial infarction; G47.33 Obstructive sleep apnea (adult) (pediatric); G89.29 Other chronic pain; F32.9 Major depressive disorder, single episode, unspecified; F41.9 Anxiety disorder, unspecified; F12.10 Cannabis abuse, uncomplicated; F17.200 Nicotine dependence, unspecified, uncomplicated; Z79.899 Other long term (current) drug therapy; Z79.84 Long term (current) use of oral hypoglycemic drugs; Z79.01 Long term (current) use of anticoagulants; Z79.2 Long term (current) use of antibiotics; Z79.82 Long term (current) use of aspirin; Z86.19 Personal history of other infectious and parasitic diseases; Z98.61 Coronary angioplasty status; Z68.36 Body mass index [BMI] 36.0-36.9, adult; Y83.8 Other surgical procedures as the cause of abnormal reaction of the patient, or of later complication, without mention of misadventure at the time of the procedure | CPT/HCPCS: 36416; 82948; 97597 ==

== ENCOUNTER 2019-04-22 11:00 | Day surgery (SDC) | payer MEDICARE, MEDICAID ==
[2019-04-22] MEDS ORDERED: LIDOcaine 2% 5ml jelly ONE (11:16)
== END 2019-04-22 11:56 | disposition home or self-care (01) ==
LOC: WOUND CARE 11:00
PROVIDERS: ATTEND Surgery
DX: T81.30XD Disruption of wound, unspecified, subsequent encounter (principal); E11.621 Type 2 diabetes mellitus with foot ulcer; L97.512 Non-pressure chronic ulcer of other part of right foot with fat layer exposed; E11.65 Type 2 diabetes mellitus with hyperglycemia; E11.40 Type 2 diabetes mellitus with diabetic neuropathy, unspecified; E11.69 Type 2 diabetes mellitus with other specified complication; M86.9 Osteomyelitis, unspecified; I25.10 Atherosclerotic heart disease of native coronary artery without angina pectoris; I10 Essential (primary) hypertension; E66.01 Morbid (severe) obesity due to excess calories; K21.9 Gastro-esophageal reflux disease without esophagitis; E78.5 Hyperlipidemia, unspecified; I25.2 Old myocardial infarction; G47.33 Obstructive sleep apnea (adult) (pediatric); G89.29 Other chronic pain; F32.9 Major depressive disorder, single episode, unspecified; F41.9 Anxiety disorder, unspecified; F12.10 Cannabis abuse, uncomplicated; F17.200 Nicotine dependence, unspecified, uncomplicated; Z79.899 Other long term (current) drug therapy; Z79.84 Long term (current) use of oral hypoglycemic drugs; Z79.01 Long term (current) use of anticoagulants; Z79.2 Long term (current) use of antibiotics; Z79.82 Long term (current) use of aspirin; Z86.19 Personal history of other infectious and parasitic diseases; Z98.61 Coronary angioplasty status; Z68.36 Body mass index [BMI] 36.0-36.9, adult; Y83.8 Other surgical procedures as the cause of abnormal reaction of the patient, or of later complication, without mention of misadventure at the time of the procedure
CPT/HCPCS: 15275; 36416; 82948; Q4187

== ENCOUNTER 2019-05-07 08:55 | Day surgery (SDC) | payer MEDICAID, MEDICARE ==
[~2019-05-07 08:55] MED LIST changes: -CLIN-90 PO; +LEVO750T46 PO
[2019-05-07] MEDS ORDERED: LIDOcaine 2% 5ml jelly ONE (09:49)
== END 2019-05-07 10:37 | disposition home or self-care (01) ==
LOC: WOUND CARE 08:55
PROVIDERS: ATTEND Surgery
DX: T81.30XD Disruption of wound, unspecified, subsequent encounter (principal); E11.621 Type 2 diabetes mellitus with foot ulcer; L97.512 Non-pressure chronic ulcer of other part of right foot with fat layer exposed; E11.65 Type 2 diabetes mellitus with hyperglycemia; E11.40 Type 2 diabetes mellitus with diabetic neuropathy, unspecified; E11.69 Type 2 diabetes mellitus with other specified complication; M86.9 Osteomyelitis, unspecified; I25.10 Atherosclerotic heart disease of native coronary artery without angina pectoris; I10 Essential (primary) hypertension; E66.01 Morbid (severe) obesity due to excess calories; K21.9 Gastro-esophageal reflux disease without esophagitis; E78.5 Hyperlipidemia, unspecified; I25.2 Old myocardial infarction; G47.33 Obstructive sleep apnea (adult) (pediatric); G89.29 Other chronic pain; F32.9 Major depressive disorder, single episode, unspecified; F41.9 Anxiety disorder, unspecified; F12.10 Cannabis abuse, uncomplicated; F17.200 Nicotine dependence, unspecified, uncomplicated; Z79.899 Other long term (current) drug therapy; Z79.84 Long term (current) use of oral hypoglycemic drugs; Z79.01 Long term (current) use of anticoagulants; Z79.2 Long term (current) use of antibiotics; Z79.82 Long term (current) use of aspirin; Z86.19 Personal history of other infectious and parasitic diseases; Z98.61 Coronary angioplasty status; Z68.36 Body mass index [BMI] 36.0-36.9, adult; Y83.8 Other surgical procedures as the cause of abnormal reaction of the patient, or of later complication, without mention of misadventure at the time of the procedure
CPT/HCPCS: 11042; 36416; 82948

== ENCOUNTER 2019-05-13 09:00 | Day surgery (SDC) | payer MEDICARE, MEDICAID ==
[2019-05-13] MEDS ORDERED: LIDOcaine 2% 5ml jelly ONE (09:25)
== END 2019-05-13 10:58 | disposition home or self-care (01) ==
LOC: WOUND CARE 09:00
PROVIDERS: ATTEND Surgery
DX: T81.30XD Disruption of wound, unspecified, subsequent encounter (principal); E11.621 Type 2 diabetes mellitus with foot ulcer; L97.512 Non-pressure chronic ulcer of other part of right foot with fat layer exposed; E11.65 Type 2 diabetes mellitus with hyperglycemia; E11.40 Type 2 diabetes mellitus with diabetic neuropathy, unspecified; E11.69 Type 2 diabetes mellitus with other specified complication; M86.9 Osteomyelitis, unspecified; I25.10 Atherosclerotic heart disease of native coronary artery without angina pectoris; I10 Essential (primary) hypertension; E66.01 Morbid (severe) obesity due to excess calories; K21.9 Gastro-esophageal reflux disease without esophagitis; E78.5 Hyperlipidemia, unspecified; I25.2 Old myocardial infarction; G47.33 Obstructive sleep apnea (adult) (pediatric); G89.29 Other chronic pain; F32.9 Major depressive disorder, single episode, unspecified; F41.9 Anxiety disorder, unspecified; F12.10 Cannabis abuse, uncomplicated; F17.200 Nicotine dependence, unspecified, uncomplicated; Z79.899 Other long term (current) drug therapy; Z79.84 Long term (current) use of oral hypoglycemic drugs; Z79.01 Long term (current) use of anticoagulants; Z79.2 Long term (current) use of antibiotics; Z79.82 Long term (current) use of aspirin; Z86.19 Personal history of other infectious and parasitic diseases; Z98.61 Coronary angioplasty status; Z68.36 Body mass index [BMI] 36.0-36.9, adult; Y83.8 Other surgical procedures as the cause of abnormal reaction of the patient, or of later complication, without mention of misadventure at the time of the procedure
CPT/HCPCS: 15275; 36416; 82948; A6209; Q4187; A4663; A6021; A6154; A6446

== ENCOUNTER 2019-05-21 08:55 | Day surgery (SDC) | payer MEDICARE, MEDICAID ==
[~2019-05-21 08:55] MED LIST changes: -BUPR1TAB36 SL; +BUPR1TAB45 SL
[2019-05-21] MEDS ORDERED: LIDOcaine 2% 5ml jelly ONE (09:45)
== END 2019-05-21 10:48 | disposition home or self-care (01) ==
LOC: WOUND CARE 08:55
PROVIDERS: ATTEND Surgery
DX: T81.30XD Disruption of wound, unspecified, subsequent encounter (principal); E11.621 Type 2 diabetes mellitus with foot ulcer; L97.512 Non-pressure chronic ulcer of other part of right foot with fat layer exposed; E11.65 Type 2 diabetes mellitus with hyperglycemia; E11.40 Type 2 diabetes mellitus with diabetic neuropathy, unspecified; E11.69 Type 2 diabetes mellitus with other specified complication; M86.9 Osteomyelitis, unspecified; I25.10 Atherosclerotic heart disease of native coronary artery without angina pectoris; I10 Essential (primary) hypertension; E66.01 Morbid (severe) obesity due to excess calories; K21.9 Gastro-esophageal reflux disease without esophagitis; E78.5 Hyperlipidemia, unspecified; I25.2 Old myocardial infarction; G47.33 Obstructive sleep apnea (adult) (pediatric); G89.29 Other chronic pain; F32.9 Major depressive disorder, single episode, unspecified; F41.9 Anxiety disorder, unspecified; F12.10 Cannabis abuse, uncomplicated; F17.200 Nicotine dependence, unspecified, uncomplicated; Z79.899 Other long term (current) drug therapy; Z79.84 Long term (current) use of oral hypoglycemic drugs; Z79.01 Long term (current) use of anticoagulants; Z79.2 Long term (current) use of antibiotics; Z79.82 Long term (current) use of aspirin; Z86.19 Personal history of other infectious and parasitic diseases; Z98.61 Coronary angioplasty status; Z68.36 Body mass index [BMI] 36.0-36.9, adult; Y83.8 Other surgical procedures as the cause of abnormal reaction of the patient, or of later complication, without mention of misadventure at the time of the procedure
CPT/HCPCS: 36416; 82948; 97597; A4663; A6021; A6154; A6446

== ENCOUNTER 2019-05-25 08:53 | Day surgery (SDC) | payer MEDICARE, MEDICAID ==
[2019-05-25] MEDS ORDERED: LIDOcaine 2% 5ml jelly ONE (10:15)
== END 2019-05-25 10:50 | disposition home or self-care (01) ==
LOC: WOUND CARE 08:53
PROVIDERS: ATTEND Surgery
DX: T81.30XD Disruption of wound, unspecified, subsequent encounter (principal); E11.621 Type 2 diabetes mellitus with foot ulcer; L97.512 Non-pressure chronic ulcer of other part of right foot with fat layer exposed; E11.65 Type 2 diabetes mellitus with hyperglycemia; E11.40 Type 2 diabetes mellitus with diabetic neuropathy, unspecified; E11.69 Type 2 diabetes mellitus with other specified complication; M86.9 Osteomyelitis, unspecified; I25.10 Atherosclerotic heart disease of native coronary artery without angina pectoris; I10 Essential (primary) hypertension; E66.01 Morbid (severe) obesity due to excess calories; K21.9 Gastro-esophageal reflux disease without esophagitis; E78.5 Hyperlipidemia, unspecified; I25.2 Old myocardial infarction; G47.33 Obstructive sleep apnea (adult) (pediatric); G89.29 Other chronic pain; F32.9 Major depressive disorder, single episode, unspecified; F41.9 Anxiety disorder, unspecified; F12.10 Cannabis abuse, uncomplicated; F17.200 Nicotine dependence, unspecified, uncomplicated; Z79.899 Other long term (current) drug therapy; Z79.84 Long term (current) use of oral hypoglycemic drugs; Z79.01 Long term (current) use of anticoagulants; Z79.2 Long term (current) use of antibiotics; Z79.82 Long term (current) use of aspirin; Z86.19 Personal history of other infectious and parasitic diseases; Z98.61 Coronary angioplasty status; Z68.36 Body mass index [BMI] 36.0-36.9, adult; Y83.8 Other surgical procedures as the cause of abnormal reaction of the patient, or of later complication, without mention of misadventure at the time of the procedure
CPT/HCPCS: 15275; 36416; 82948; Q4187

== ENCOUNTER 2019-06-01 08:58 | Day surgery (SDC) | payer MEDICARE, MEDICAID ==
[2019-06-01] MEDS ORDERED: LIDOcaine 2% 5ml jelly ONE (09:12)
== END 2019-06-01 10:34 | disposition home or self-care (01) ==
LOC: WOUND CARE 08:58
PROVIDERS: ATTEND Surgery
DX: T81.30XD Disruption of wound, unspecified, subsequent encounter (principal); E11.621 Type 2 diabetes mellitus with foot ulcer; L97.512 Non-pressure chronic ulcer of other part of right foot with fat layer exposed; E11.65 Type 2 diabetes mellitus with hyperglycemia; E11.40 Type 2 diabetes mellitus with diabetic neuropathy, unspecified; E11.69 Type 2 diabetes mellitus with other specified complication; M86.9 Osteomyelitis, unspecified; I25.10 Atherosclerotic heart disease of native coronary artery without angina pectoris; I10 Essential (primary) hypertension; E66.01 Morbid (severe) obesity due to excess calories; K21.9 Gastro-esophageal reflux disease without esophagitis; E78.5 Hyperlipidemia, unspecified; I25.2 Old myocardial infarction; G47.33 Obstructive sleep apnea (adult) (pediatric); G89.29 Other chronic pain; F32.9 Major depressive disorder, single episode, unspecified; F41.9 Anxiety disorder, unspecified; F12.10 Cannabis abuse, uncomplicated; F17.200 Nicotine dependence, unspecified, uncomplicated; Z79.899 Other long term (current) drug therapy; Z79.84 Long term (current) use of oral hypoglycemic drugs; Z79.01 Long term (current) use of anticoagulants; Z79.2 Long term (current) use of antibiotics; Z79.82 Long term (current) use of aspirin; Z86.19 Personal history of other infectious and parasitic diseases; Z98.61 Coronary angioplasty status; Z68.36 Body mass index [BMI] 36.0-36.9, adult; Y83.8 Other surgical procedures as the cause of abnormal reaction of the patient, or of later complication, without mention of misadventure at the time of the procedure
CPT/HCPCS: 36416; 82948; 97597

== ENCOUNTER 2019-06-08 08:55 | Outpatient (CLI) | payer MEDICARE, MEDICAID ==
[~2019-06-08 08:55] MED LIST changes: -LEVO750T46 PO
[2019-06-08] MEDS ORDERED: LIDOcaine 2% 5ml jelly ONE (09:13)
== END 2019-06-08 10:52 | disposition home or self-care (01) ==
LOC: WOUND CARE 08:55 → EDSTATUS 09:00 → WOUND CARE 10:52
PROVIDERS: ATTEND Emergency Medicine
DX: T81.30XD Disruption of wound, unspecified, subsequent encounter (principal); E11.621 Type 2 diabetes mellitus with foot ulcer; L97.512 Non-pressure chronic ulcer of other part of right foot with fat layer exposed; E11.65 Type 2 diabetes mellitus with hyperglycemia; E11.40 Type 2 diabetes mellitus with diabetic neuropathy, unspecified; E11.69 Type 2 diabetes mellitus with other specified complication; M86.9 Osteomyelitis, unspecified; I25.10 Atherosclerotic heart disease of native coronary artery without angina pectoris; I10 Essential (primary) hypertension; E66.01 Morbid (severe) obesity due to excess calories; K21.9 Gastro-esophageal reflux disease without esophagitis; E78.5 Hyperlipidemia, unspecified; I25.2 Old myocardial infarction; G47.33 Obstructive sleep apnea (adult) (pediatric); G89.29 Other chronic pain; F32.9 Major depressive disorder, single episode, unspecified; F41.9 Anxiety disorder, unspecified; F12.10 Cannabis abuse, uncomplicated; F17.200 Nicotine dependence, unspecified, uncomplicated; Z79.899 Other long term (current) drug therapy; Z79.84 Long term (current) use of oral hypoglycemic drugs; Z79.01 Long term (current) use of anticoagulants; Z79.2 Long term (current) use of antibiotics; Z79.82 Long term (current) use of aspirin; Z86.19 Personal history of other infectious and parasitic diseases; Z98.61 Coronary angioplasty status; Z68.36 Body mass index [BMI] 36.0-36.9, adult; Y83.8 Other surgical procedures as the cause of abnormal reaction of the patient, or of later complication, without mention of misadventure at the time of the procedure
CPT/HCPCS: 82948; G0463

== ENCOUNTER 2019-06-15 10:14 | Outpatient (CLI) | payer MEDICARE, MEDICAID ==
[2019-06-15] MEDS ORDERED: LIDOcaine 2% 5ml jelly ONE (10:30)
== END 2019-06-15 12:15 | disposition home or self-care (01) ==
LOC: WOUND CARE 10:14 → EDSTATUS 10:20 → WOUND CARE 12:15
PROVIDERS: ATTEND Nurse Practitioner
DX: T81.30XD Disruption of wound, unspecified, subsequent encounter (principal); E11.621 Type 2 diabetes mellitus with foot ulcer; L97.512 Non-pressure chronic ulcer of other part of right foot with fat layer exposed; E11.65 Type 2 diabetes mellitus with hyperglycemia; E11.40 Type 2 diabetes mellitus with diabetic neuropathy, unspecified; E11.69 Type 2 diabetes mellitus with other specified complication; M86.9 Osteomyelitis, unspecified; I25.10 Atherosclerotic heart disease of native coronary artery without angina pectoris; I10 Essential (primary) hypertension; E66.01 Morbid (severe) obesity due to excess calories; K21.9 Gastro-esophageal reflux disease without esophagitis; E78.5 Hyperlipidemia, unspecified; I25.2 Old myocardial infarction; G47.33 Obstructive sleep apnea (adult) (pediatric); G89.29 Other chronic pain; F32.9 Major depressive disorder, single episode, unspecified; F41.9 Anxiety disorder, unspecified; F12.10 Cannabis abuse, uncomplicated; F17.200 Nicotine dependence, unspecified, uncomplicated; Z79.899 Other long term (current) drug therapy; Z79.84 Long term (current) use of oral hypoglycemic drugs; Z79.01 Long term (current) use of anticoagulants; Z79.2 Long term (current) use of antibiotics; Z79.82 Long term (current) use of aspirin; Z86.19 Personal history of other infectious and parasitic diseases; Z98.61 Coronary angioplasty status; Z68.36 Body mass index [BMI] 36.0-36.9, adult; Y83.8 Other surgical procedures as the cause of abnormal reaction of the patient, or of later complication, without mention of misadventure at the time of the procedure
CPT/HCPCS: 36416; 82948; G0463

== ENCOUNTER 2019-06-17 09:22 | Outpatient (CLI) | payer MEDICARE, MEDICAID ==
[2019-06-17] MEDS ORDERED: LIDOcaine 2% 5ml jelly ONE (09:25)
== END 2019-06-17 10:21 | disposition home or self-care (01) ==
LOC: WOUND CARE 09:22
PROVIDERS: ATTEND Nurse Practitioner
DX: T81.30XD Disruption of wound, unspecified, subsequent encounter (principal); E11.621 Type 2 diabetes mellitus with foot ulcer; L97.512 Non-pressure chronic ulcer of other part of right foot with fat layer exposed; E11.65 Type 2 diabetes mellitus with hyperglycemia; E11.40 Type 2 diabetes mellitus with diabetic neuropathy, unspecified; E11.69 Type 2 diabetes mellitus with other specified complication; M86.9 Osteomyelitis, unspecified; I25.10 Atherosclerotic heart disease of native coronary artery without angina pectoris; I10 Essential (primary) hypertension; E66.01 Morbid (severe) obesity due to excess calories; K21.9 Gastro-esophageal reflux disease without esophagitis; E78.5 Hyperlipidemia, unspecified; I25.2 Old myocardial infarction; G47.33 Obstructive sleep apnea (adult) (pediatric); G89.29 Other chronic pain; F32.9 Major depressive disorder, single episode, unspecified; F41.9 Anxiety disorder, unspecified; F12.10 Cannabis abuse, uncomplicated; F17.200 Nicotine dependence, unspecified, uncomplicated; Z79.899 Other long term (current) drug therapy; Z79.84 Long term (current) use of oral hypoglycemic drugs; Z79.01 Long term (current) use of anticoagulants; Z79.2 Long term (current) use of antibiotics; Z79.82 Long term (current) use of aspirin; Z86.19 Personal history of other infectious and parasitic diseases; Z98.61 Coronary angioplasty status; Z68.36 Body mass index [BMI] 36.0-36.9, adult; Y83.8 Other surgical procedures as the cause of abnormal reaction of the patient, or of later complication, without mention of misadventure at the time of the procedure
CPT/HCPCS: 36416; 82948; G0463

== ENCOUNTER 2019-06-24 10:43 | Inpatient (IN) | payer MEDICARE, MEDICAID ==
[~2019-06-24] VITALS: Ht 193 cm; Wt 150.0 kg
[~2019-06-24 10:43] MED LIST changes: -CHOL100025 PO; -CHOL10006 PO; -CLOP75TA33 PO; -LIDOcaine 2% 5ml jelly ONE; -NITR0.4T51 SL; -POTA10CA44 PO; -QUET100T33 PO
[2019-06-24] MEDS ORDERED: ondansetron/PF 4mg/2ml inj IV ONE (11:20)
[2019-06-24] MEDS: morphine 4 MG/ML inj SYRINge IV PRN ×2 (11:31→11:59)
[2019-06-24 11:42] LABS: BASOPHILS % (AUTO) 0.7 % (0-1); EOSINOPHILS # (AUTO) 0.3 X10'3 (0-0.9); EOSINOPHILS % (AUTO) 7.4 % (0-6); HEMATOCRIT 37.8 % (42.0-52.0); HEMOGLOBIN 12.5 g/dl (14.0-17.9); LYMPHOCYTES # (AUTO) 0.6 X10'3 (1.1-4.8); LYMPHOCYTES % (AUTO) 16.7 % (21-51); MEAN CORPUSCULAR HEMOGLOBIN 26.5 PG (27.0-31.0); MEAN CORPUSCULAR VOLUME 80.2 FL (78-98); MEAN PLATELET VOLUME 7.6 FL (7.4-10.4); MONOCYTES # (AUTO) 0.4 X10'3 (0-0.9); MONOCYTES % (AUTO) 10.5 % (2-12); NEUTROPHILS # (AUTO) 2.4 X10'3 (1.8-7.7); NEUTROPHILS % (AUTO) 64.7 % (42-75); PLATELET COUNT 175 X10'3 (140-440); RED BLOOD COUNT 4.71 X10'6 (4.70-6.10); WHITE BLOOD COUNT 3.6 X10'3 (4.5-11.0)
[2019-06-24 11:48] LABS: ALANINE AMINOTRANSFERASE 22 U/L (12-78); ALBUMIN 3.5 G/DL (3.4-5.0); ALBUMIN/GLOBULIN RATIO 0.8 (1.1-1.5); ALKALINE PHOSPHATASE 86 IU/L (46-116); ANION GAP 4 (8-16); ASPARTATE AMINO TRANSFERASE 24 U/L (10-37); BILIRUBIN,TOTAL 0.3 MG/DL (0.1-1.0); BLOOD UREA NITROGEN 19 MG/DL (7-18); BUN/CREATININE RATIO 20.4 (5.4-32.0); CALCIUM 9.3 MG/DL (8.5-10.1); CHLORIDE 103 MMOL/L (99-107); CREATININE 0.93 MG/DL (0.60-1.10); GLUCOSE 123 MG/DL (70-104); PARTIAL THROMBOPLASTIN TIME 27 SECONDS (22-32); POTASSIUM 3.9 MMOL/L (3.5-5.1); SODIUM 144 MMOL/L (135-145); TOTAL CARBON DIOXIDE 37.3 MMOL/L (24-32); TOTAL PROTEIN 7.7 G/DL (6.4-8.2); eGFR 83 ML/MIN
[2019-06-24] MEDS ORDERED: QUET100T33 PO (12:34)
[2019-06-24] MEDS ORDERED: ATOR20TA66 PO (12:36)
[2019-06-24] MEDS ORDERED: CLOP75TA33 PO (12:36)
[2019-06-24] MEDS ORDERED: CHOL10006 PO (12:39)
[2019-06-24] MEDS ORDERED: CHOL100025 PO (12:40)
[2019-06-24] MEDS ORDERED: POTA10CA44 PO (12:41)
[2019-06-24] MEDS ORDERED: NITR0.4T51 SL (12:42)
[2019-06-24] MEDS ORDERED: potassium CL 10mEq/100ml bag 100 ML IV PRN ×2 (13:55)
[2019-06-24] MEDS ORDERED: magnesium 2GM in 50ml NS 50 ML IV PRN (13:55)
[2019-06-24] MEDS ORDERED: ipratropium/albuterol 3ml nebule NEB PRN (13:55)
[2019-06-24] MEDS ORDERED: magnesium 4gm in 100ml NS 100 ML IV PRN (13:55)
[2019-06-24] MEDS ORDERED: magnesium hydroxide 30ml (MOM) UD suspension PO PRN (13:55)
[2019-06-24] MEDS ORDERED: ondansetron/PF 4mg/2ml inj IV PRN (13:55)
[2019-06-24] MEDS ORDERED: mag hydrox/Alum hydrox/simeth 30ml oral suspension PO PRN (13:55)
[2019-06-24] MEDS ORDERED: acetaminophen 325mg tablet PO PRN (13:55)
[2019-06-24] MEDS ORDERED: potassium Cl 20 mEq SR tablet PO PRN ×2 (13:55)
[2019-06-24] MEDS: vancomycin/NS 1 GM ADD-VANTAGE 250 ML IV SCH ×2 (14:44→16:41)
[2019-06-24] MEDS ORDERED: piperacillin/tazo 3.375gm/50ml 50 ML IV SCH (16:00)
[2019-06-24] MEDS ORDERED: dextrose 50%-water 50ml dispensing syringe IV PRN ×2 (16:05)
[2019-06-24] MEDS ORDERED: glucagon, human recombinant 1mg kit SUBCUT PRN (16:05)
[2019-06-24] MEDS ORDERED: dextrose ORAL solution 15 GM/59 ML bottle PO PRN ×2 (16:05)
[2019-06-24] MEDS ORDERED: MESSAGE TO PHARMACY PO ONE (16:05)
[2019-06-24] MEDS ORDERED: insulin Lispro (HumaLOG) vial - multi-dose SQ SCH (16:05)
[2019-06-24 16:30] VITALS: BP 140/67
--- NOTE | 2019-06-24 16:30 | NUR ---
Pt arrived to room 3010, alert and oriented, Vitals: 140/67, 93%, HR 65, RR 17, temp 97.9. Pt oriented to room.
[2019-06-24] MEDS: heparin, porcine 5000 units/ml vial SQ SCH ×2 (16:41→23:15)
--- NOTE | 2019-06-24 17:27 | NUR ---
PAGER ID: [phone] MESSAGE: Re: Michael Marcum, Room: 3010. Pt has no pain medication ordered. Can we order Morphine IV or dilaudid IV for Pt? Thank you -[facility] #[id number] Dr. Morales paged concerning pain medication
[2019-06-24 18:00] VITALS: BP 129/71
--- NOTE | 2019-06-24 18:00 | NUR ---
Patient in room PCU 3010. I have received report from RONNIE Ortiz and had the opportunity to ask questions and assume patient care. Addendum: 06/24/19 at 1852 by Ginger Kline RN Amended: Links added.
--- NOTE | 2019-06-24 18:34 | NUR ---
Problems reprioritized. Patient report given, questions answered & plan of care reviewed with Ginger TRUJILLO.
[2019-06-24] MEDS: piperacillin/tazo 3.375gm/50ml 50 ML IV SCH (18:39)
[2019-06-24] MEDS: K and/or MAG REPLACEMENT MC SCH (20:00)
[2019-06-24] MEDS: OMEGA-3/DHA/EPA/FISH OIL 1 EACH CAPSULE.DR PO SCH (20:02)
[2019-06-24] MEDS: pregabalin 75mg capsule PO SCH (20:02)
[2019-06-24] MEDS: docusate sod 250mg capsule PO SCH (20:13)
[2019-06-24] MEDS: varenicline tartrate 0.5mg tablet PO SCH (20:15)
[2019-06-24] MEDS: insulin glargine (Lantus) pen - multi-dose SQ SCH (21:00)
[2019-06-24] MEDS: buprenorphine/naloxone 8MG-2MG SUBlingual film SL SCH (21:05)
[2019-06-24] MEDS: LORazepam 2 mg/ml vial IV PRN (21:09)
[2019-06-24 22:00] VITALS: BP 119/66
[2019-06-24] MEDS: VANCOMYCIN 1,500MG inj. 1,500 MG in normal saline 500ml IV soln 500 ML IV SCH (23:15)
[2019-06-24] MEDS ORDERED: quetiapine 100mg tablet PO ONE (23:55)
[2019-06-25] VITALS (7 sets, daily range): BP systolic 112–138; BP diastolic 64–89
[2019-06-25] MEDS: piperacillin/tazo 3.375gm/50ml 50 ML IV SCH ×4 (02:07→23:54)
--- NOTE | 2019-06-25 04:45 | NUR ---
Problems reprioritized. Patient report given, questions answered & plan of care reviewed with RONNIE Mars. Addendum: 06/25/19 at 0445 by Ginger Kline RN Amended: Links added.
--- NOTE | 2019-06-25 05:15 | NUR ---
PAGER ID: [phone] MESSAGE: Erich Marcum 63M [id number] admitted with osteomylithis of R foot complaining of 8/10 pain in his leg, he does not have any pain meds ordered at this time, can I get something to help with his pain please? Thanks Madisyn TRUJILLO
[2019-06-25] MEDS: HYDROcodone/acetaminophen 5mg/325mg tablet PO ONE ×2 (05:44→05:49)
--- NOTE | 2019-06-25 05:57 | NUR ---
PAGER ID: [phone] MESSAGE: Erich Marcum 63M admitted with osteomylitis, pt gets suboxone TID pt refused norco 5 for pain, i was wondering if there was maybe something else i could give him please? says pain is excruiating. Thanks Madisyn TRUJILLO [phone]
[2019-06-25 06:37] LABS: ALANINE AMINOTRANSFERASE 23 U/L (12-78); ALBUMIN 3.5 G/DL (3.4-5.0); ALBUMIN/GLOBULIN RATIO 0.9 (1.1-1.5); ALKALINE PHOSPHATASE 77 IU/L (46-116); ANION GAP 7 (8-16); ASPARTATE AMINO TRANSFERASE 22 U/L (10-37); BILIRUBIN,TOTAL 0.5 MG/DL (0.1-1.0); BLOOD UREA NITROGEN 21 MG/DL (7-18); BUN/CREATININE RATIO 21.6 (5.4-32.0); CALCIUM 9.1 MG/DL (8.5-10.1); CHLORIDE 103 MMOL/L (99-107); CREATININE 0.97 MG/DL (0.60-1.10); GLUCOSE 108 MG/DL (70-104); MAGNESIUM 1.9 MG/DL (1.5-2.4); SODIUM 143 MMOL/L (135-145); TOTAL CARBON DIOXIDE 33.3 MMOL/L (24-32); TOTAL PROTEIN 7.4 G/DL (6.4-8.2); eGFR 79 ML/MIN
--- NOTE | 2019-06-25 06:37 | NUR ---
Problems reprioritized. Patient report given, questions answered & plan of care reviewed with Martha TRUJILLO.
[2019-06-25] MEDS: buprenorphine/naloxone 8MG-2MG SUBlingual film SL SCH ×3 (07:27→19:58)
[2019-06-25] MEDS: VANCOMYCIN 1,500MG inj. 1,500 MG in normal saline 500ml IV soln 500 ML IV SCH ×3 (07:27→23:54)
[2019-06-25] MEDS: heparin, porcine 5000 units/ml vial SQ SCH ×2 (07:28→15:38)
[2019-06-25] MEDS: potassium chloride 10mEq ER tablet PO SCH (07:28)
[2019-06-25] MEDS: pantoprazole 40mg Tablet.DR PO SCH (07:28)
[2019-06-25] MEDS: docusate sod 250mg capsule PO SCH ×2 (07:28→19:59)
[2019-06-25] MEDS: pregabalin 75mg capsule PO SCH ×2 (07:28→19:59)
[2019-06-25] MEDS: furosemide 40mg tablet PO SCH (07:28)
[2019-06-25] MEDS: vitamin D (cholecalciferol) 1,000 unit tablet PO SCH (07:28)
[2019-06-25] MEDS: losartan 50mg tablet PO SCH (07:29)
[2019-06-25] MEDS: atorvastatin 20mg tablet PO SCH (07:29)
[2019-06-25] MEDS: OMEGA-3/DHA/EPA/FISH OIL 1 EACH CAPSULE.DR PO SCH ×2 (07:29→19:59)
[2019-06-25] MEDS: aspirin 81mg tablet.DR PO SCH (07:29)
[2019-06-25] MEDS: HYDROchlorothiazide 12.5mg capsule PO SCH (07:29)
[2019-06-25 07:30] LABS: BASOPHILS % (AUTO) 0.6 % (0-1); EOSINOPHILS # (AUTO) 0.3 X10'3 (0-0.9); EOSINOPHILS % (AUTO) 6.2 % (0-6); HEMATOCRIT 37.5 % (42.0-52.0); HEMOGLOBIN 12.3 g/dl (14.0-17.9); LYMPHOCYTES # (AUTO) 0.7 X10'3 (1.1-4.8); LYMPHOCYTES % (AUTO) 16.5 % (21-51); MEAN CORPUSCULAR HEMOGLOBIN 26.5 PG (27.0-31.0); MEAN CORPUSCULAR HGB CONC 32.9 g/dL (33.0-36.5); MEAN CORPUSCULAR VOLUME 80.4 FL (78-98); MEAN PLATELET VOLUME 7.7 FL (7.4-10.4); MONOCYTES # (AUTO) 0.4 X10'3 (0-0.9); MONOCYTES % (AUTO) 9.5 % (2-12); NEUTROPHILS # (AUTO) 2.8 X10'3 (1.8-7.7); NEUTROPHILS % (AUTO) 67.2 % (42-75); PLATELET COUNT 170 X10'3 (140-440); RED BLOOD COUNT 4.67 X10'6 (4.70-6.10); RED CELL DISTRIBUTION WIDTH 18.4 % (11.5-14.5); WHITE BLOOD COUNT 4.2 X10'3 (4.5-11.0)
[2019-06-25] MEDS: varenicline tartrate 0.5mg tablet PO SCH ×2 (07:56→19:59)
[2019-06-25] MEDS: K and/or MAG REPLACEMENT MC SCH ×2 (07:56→19:49)
--- NOTE | 2019-06-25 09:59 | NUR ---
DM consult: Pt with T2DM, most recent A1c is 6.3, DM education not warranted at this time. Pt currently on CHO controlled diet documented with 100% PO intake. D/w dietary to send double protein TID for satiety and to meet nutrient needs. Will continue to follow. Addendum: 06/25/19 at [address] Amended: Links added.
[2019-06-25] MEDS ORDERED: VANCOMYCIN LEVEL IV ONE (15:30)
[2019-06-25] MEDS: LORazepam 2 mg/ml vial IV PRN ×2 (15:38→21:10)
--- NOTE | 2019-06-25 16:21 | NUR ---
held scheduled 1600 vancomycin due to vanco trough level 22.2, pharmacy to dose vancomycin
[2019-06-25] MEDS: nitroGLYCERIN 0.4mg SUBLingual tab SL PRN ×2 (17:12→18:57)
[2019-06-25] MEDS ORDERED: ringers solution, lacted 1,000 ML IV ONE (17:26)
--- NOTE | 2019-06-25 18:37 | NUR ---
Patient in room PCU 3010. I have received report from RONNIE Thomas and had the opportunity to ask questions and assume patient care.
[2019-06-25] MEDS: insulin glargine (Lantus) pen - multi-dose SQ SCH (21:00)
[2019-06-25] MEDS: quetiapine 100mg tablet PO SCH (23:06)
[2019-06-26] VITALS (21 sets, daily range): BP systolic 120–154; BP diastolic 57–95
[2019-06-26] MEDS ORDERED: mupirocin 2% ointment 22GM ONE (05:52)
[2019-06-26] MEDS ORDERED: BUPIVAcaine/PF 2.5 mg/ml (0.25%) 30ml vial ONE (05:52)
[2019-06-26 06:12] LABS: BASOPHILS % (AUTO) 0.7 % (0-1); EOSINOPHILS # (AUTO) 0.3 X10'3 (0-0.9); EOSINOPHILS % (AUTO) 7.9 % (0-6); HEMATOCRIT 38.3 % (42.0-52.0); HEMOGLOBIN 12.7 g/dl (14.0-17.9); LYMPHOCYTES # (AUTO) 0.8 X10'3 (1.1-4.8); LYMPHOCYTES % (AUTO) 19.6 % (21-51); MEAN CORPUSCULAR HEMOGLOBIN 26.7 PG (27.0-31.0); MEAN CORPUSCULAR HGB CONC 33.3 g/dL (33.0-36.5); MEAN CORPUSCULAR VOLUME 80.3 FL (78-98); MEAN PLATELET VOLUME 7.7 FL (7.4-10.4); MONOCYTES # (AUTO) 0.5 X10'3 (0-0.9); MONOCYTES % (AUTO) 10.7 % (2-12); NEUTROPHILS # (AUTO) 2.6 X10'3 (1.8-7.7); NEUTROPHILS % (AUTO) 61.1 % (42-75); PLATELET COUNT 167 X10'3 (140-440); RED BLOOD COUNT 4.77 X10'6 (4.70-6.10); RED CELL DISTRIBUTION WIDTH 18.1 % (11.5-14.5); WHITE BLOOD COUNT 4.3 X10'3 (4.5-11.0)
--- NOTE | 2019-06-26 06:19 | NUR ---
Problems reprioritized. Patient report given, questions answered & plan of care reviewed with RONNIE Kendrick.
[2019-06-26 06:27] LABS: ALANINE AMINOTRANSFERASE 22 U/L (12-78); ALBUMIN 3.6 G/DL (3.4-5.0); ALBUMIN/GLOBULIN RATIO 0.9 (1.1-1.5); ALKALINE PHOSPHATASE 77 IU/L (46-116); ANION GAP 6 (8-16); ASPARTATE AMINO TRANSFERASE 21 U/L (10-37); BILIRUBIN,TOTAL 0.6 MG/DL (0.1-1.0); BLOOD UREA NITROGEN 21 MG/DL (7-18); CALCIUM 9.2 MG/DL (8.5-10.1); CHLORIDE 104 MMOL/L (99-107); CREATININE 1.05 MG/DL (0.60-1.10); GLUCOSE 111 MG/DL (70-104); POTASSIUM 3.8 MMOL/L (3.5-5.1); SODIUM 143 MMOL/L (135-145); TOTAL CARBON DIOXIDE 33.5 MMOL/L (24-32); TOTAL PROTEIN 7.7 G/DL (6.4-8.2); eGFR 72 ML/MIN
[2019-06-26] MEDS ORDERED: fentaNYL/PF 50MCG/1 ML 2ML syringe ONE ×2 (06:34→07:05)
[2019-06-26] MEDS ORDERED: midazolam 2 mg/2 ml injection ONE (06:35)
[2019-06-26] MEDS ORDERED: ringers solution, lacted 1,000 ML IV SCH (06:39)
[2019-06-26] MEDS ORDERED: morphine 2 MG/ML inj. syringe IV PRN (06:40)
[2019-06-26] MEDS ORDERED: hydrALAZINE 20mg/ml inj. IV PRN (06:40)
[2019-06-26] MEDS ORDERED: ondansetron/PF 4mg/2ml inj IV PRN (06:40)
[2019-06-26] MEDS ORDERED: morphine 4 MG/ML inj SYRINge IV PRN (06:40)
[2019-06-26] MEDS ORDERED: fentaNYL/PF 50MCG/1 ML 2ML syringe IV PRN ×2 (06:40)
[2019-06-26] MEDS ORDERED: labetalol 20mg/4ml (5mg/ml) syringe IV PRN (06:40)
--- NOTE | 2019-06-26 06:46 | NUR ---
TO THE OR
--- NOTE | 2019-06-26 06:46 | NUR ---
Patient in room PCU 3010. I have received report from TIMA TRUJILLO and had the opportunity to ask questions and assume patient care.
[2019-06-26] MEDS ORDERED: propofol 10mg/ml 20ml vial IV ONE (06:53)
[2019-06-26] MEDS ORDERED: sevoflurane 250ml liquid IH ONE (06:53)
[2019-06-26] MEDS ORDERED: LIDOcaine 1%/PF 5ML 10 MG/ML VIAL ONE (06:53)
[2019-06-26] MEDS ORDERED: ceFAZolin 1000mg inj ONE (07:03)
--- NOTE | 2019-06-26 07:55 | NUR ---
Received from OR via BED , accompanied by Anesthesiologist DR CRAIG and report given by Anesthesiolgist. AWAKENS EASILY, VSS. IV PATENT #20 LEFT FA WITH LR 100MLS/HR. SCD TO LEFT LE. RIGHT FOOT WITH FLUFFS AND ACEWRAPS CDI. BIG TOE AND FIRST TOE VISABLE, WARM WITH GOOD EXPLOSIVES HANDLER. Addendum: 06/26/19 at 0808 by Alisa Pedraza RN Amended: Links added.
[2019-06-26] MEDS: OMEGA-3/DHA/EPA/FISH OIL 1 EACH CAPSULE.DR PO SCH ×2 (08:00→20:09)
[2019-06-26] MEDS: vitamin D (cholecalciferol) 1,000 unit tablet PO SCH (08:00)
[2019-06-26] MEDS: buprenorphine/naloxone 8MG-2MG SUBlingual film SL SCH ×3 (08:00→20:10)
[2019-06-26] MEDS: pantoprazole 40mg Tablet.DR PO SCH (08:00)
[2019-06-26] MEDS: furosemide 40mg tablet PO SCH (08:00)
[2019-06-26] MEDS: aspirin 81mg tablet.DR PO SCH (08:00)
[2019-06-26] MEDS: K and/or MAG REPLACEMENT MC SCH ×2 (08:00→20:00)
[2019-06-26] MEDS: HYDROchlorothiazide 12.5mg capsule PO SCH (08:00)
[2019-06-26] MEDS: potassium chloride 10mEq ER tablet PO SCH (08:00)
[2019-06-26] MEDS: varenicline tartrate 0.5mg tablet PO SCH ×2 (08:00→20:45)
[2019-06-26] MEDS: atorvastatin 20mg tablet PO SCH (08:00)
[2019-06-26] MEDS: pregabalin 75mg capsule PO SCH ×2 (08:00→20:10)
[2019-06-26] MEDS: losartan 50mg tablet PO SCH (08:00)
[2019-06-26] MEDS: docusate sod 250mg capsule PO SCH ×2 (08:00→20:09)
[2019-06-26] MEDS: heparin, porcine 5000 units/ml vial SQ SCH ×4 (08:00→23:57)
--- NOTE | 2019-06-26 08:55 | NUR ---
VSS. PT AWAKE. DENIES ANY DISCOMFORT. RIGHT LE ELEVATED ON A PILLOW. RIGHT FOOT DSG CDI. IV PATENT LEFT FA #20. NO TELE ORDERED. PT WAS ON TELE PRIOR TO SURGERY, TELE UNIT TRANSPORTED WITH THE PT- ROXI TRUJILLO AWARE. REPORT GIVEN TO ROXI TRUJILLO WITH ALL QUESTIONS ANSWERED. TRANSPORTED VIA BED TO 3010 BY RN WITH ROXI TO RECEIVE PT. PT BED LOCKED AND LOWERED, CALL LIGHT GIVEN, PT SITTING UP IN BED CONVERSING WITH NO COMPLAINTS. Addendum: 06/26/19 at 0919 by Alisa Pedraza RN Amended: Links added.
[2019-06-26] MEDS: piperacillin/tazo 3.375gm/50ml 50 ML IV SCH ×3 (09:15→23:58)
--- NOTE | 2019-06-26 10:21 | NUR ---
Recieved wound care consult for chronic DM ulcer on right foot. Pt taken to OR today 06/[address] East for partial ray amputation. Nursing to follow MD post of dressing order.
--- NOTE | 2019-06-26 11:23 | NUR ---
PAGER ID: [phone] MESSAGE: AGATA [phone] RE: PUJA [phone] CAN I GIVE 1300 SUBOXONE NOW, MISSED 0800 DOSE D/T SURGERY.
[2019-06-26] MEDS: LORazepam 2 mg/ml vial IV PRN ×3 (11:30→23:56)
--- NOTE | 2019-06-26 15:13 | NUR ---
PAGER ID: [phone] MESSAGE: AGATA [phone] RE: PUJA [phone] PT REQUESTING BREK THRU PAIN MEDS, ON SUBOXONE TID.
[2019-06-26] MEDS ORDERED: buprenorphine/naloxone 8MG-2MG SUBlingual film SL ONE (15:40)
[2019-06-26] MEDS: VANCOmycin 1250MG/NS 250ml Bag 250 ML IV SCH ×2 (15:53→23:58)
--- NOTE | 2019-06-26 18:00 | NUR ---
Problems reprioritized. Patient report given, questions answered & plan of care reviewed with KENNETH TRUJILLO.
--- NOTE | 2019-06-26 18:16 | NUR ---
Problems reprioritized. Patient report given, questions answered & plan of care reviewed with April TRUJILLO.
[2019-06-26] MEDS: quetiapine 100mg tablet PO SCH (20:09)
[2019-06-26] MEDS: insulin glargine (Lantus) pen - multi-dose SQ SCH (21:00)
[2019-06-27] VITALS (7 sets, daily range): BP systolic 140–164; BP diastolic 73–88
--- NOTE | 2019-06-27 00:09 | NUR ---
Second time educating patient on NWB activity of R foot, keeping foot off the floor, exterior dressing remains CDI at this time. Pt noncompliant and ignores teaching, redirects to threating to AMA in the morning, r/t inability to dose his own suboxone. "I'll get out of here in the morning. This is ridiculous. At home I can take my suboxone whenever I want." Will continue to monitor.
[2019-06-27 05:30] LABS: BASOPHILS % (AUTO) 0.8 % (0-1); EOSINOPHILS # (AUTO) 0.2 X10'3 (0-0.9); EOSINOPHILS % (AUTO) 6.2 % (0-6); HEMATOCRIT 37.1 % (42.0-52.0); HEMOGLOBIN 12.4 g/dl (14.0-17.9); LYMPHOCYTES # (AUTO) 0.6 X10'3 (1.1-4.8); LYMPHOCYTES % (AUTO) 17.2 % (21-51); MEAN CORPUSCULAR HEMOGLOBIN 26.7 PG (27.0-31.0); MEAN CORPUSCULAR HGB CONC 33.4 g/dL (33.0-36.5); MEAN PLATELET VOLUME 7.6 FL (7.4-10.4); MONOCYTES # (AUTO) 0.4 X10'3 (0-0.9); MONOCYTES % (AUTO) 10.7 % (2-12); NEUTROPHILS # (AUTO) 2.2 X10'3 (1.8-7.7); NEUTROPHILS % (AUTO) 65.1 % (42-75); PLATELET COUNT 156 X10'3 (140-440); RED BLOOD COUNT 4.64 X10'6 (4.70-6.10); RED CELL DISTRIBUTION WIDTH 18.3 % (11.5-14.5); WHITE BLOOD COUNT 3.4 X10'3 (4.5-11.0)
[2019-06-27 05:48] LABS: ALANINE AMINOTRANSFERASE 21 U/L (12-78); ALBUMIN 3.3 G/DL (3.4-5.0); ALBUMIN/GLOBULIN RATIO 0.8 (1.1-1.5); ALKALINE PHOSPHATASE 71 IU/L (46-116); ANION GAP 3 (8-16); ASPARTATE AMINO TRANSFERASE 21 U/L (10-37); BILIRUBIN,TOTAL 0.4 MG/DL (0.1-1.0); BLOOD UREA NITROGEN 19 MG/DL (7-18); BUN/CREATININE RATIO 19.8 (5.4-32.0); CALCIUM 8.9 MG/DL (8.5-10.1); CHLORIDE 106 MMOL/L (99-107); CREATININE 0.96 MG/DL (0.60-1.10); GLUCOSE 140 MG/DL (70-104); POTASSIUM 3.9 MMOL/L (3.5-5.1); SODIUM 143 MMOL/L (135-145); TOTAL CARBON DIOXIDE 33.7 MMOL/L (24-32); TOTAL PROTEIN 7.3 G/DL (6.4-8.2); eGFR 80 ML/MIN
--- NOTE | 2019-06-27 06:14 | NUR ---
Problems reprioritized. Patient report given, questions answered & plan of care reviewed with Robi TRUJILLO.
--- NOTE | 2019-06-27 06:32 | NUR ---
Patient in room PCU 3010. I have received report from Neville and had the opportunity to ask questions and assume patient care.
[2019-06-27] MEDS: K and/or MAG REPLACEMENT MC SCH ×2 (06:39→20:00)
[2019-06-27] MEDS: docusate sod 250mg capsule PO SCH ×2 (07:28→20:18)
[2019-06-27] MEDS: OMEGA-3/DHA/EPA/FISH OIL 1 EACH CAPSULE.DR PO SCH ×2 (07:35→20:17)
[2019-06-27] MEDS: piperacillin/tazo 3.375gm/50ml 50 ML IV SCH ×3 (07:35→17:43)
[2019-06-27] MEDS: aspirin 81mg tablet.DR PO SCH (07:35)
[2019-06-27] MEDS: VANCOmycin 1250MG/NS 250ml Bag 250 ML IV SCH ×3 (07:35→23:06)
[2019-06-27] MEDS: vitamin D (cholecalciferol) 1,000 unit tablet PO SCH (07:35)
[2019-06-27] MEDS: potassium chloride 10mEq ER tablet PO SCH (07:35)
[2019-06-27] MEDS: pregabalin 75mg capsule PO SCH ×2 (07:35→20:18)
[2019-06-27] MEDS: pantoprazole 40mg Tablet.DR PO SCH (07:36)
[2019-06-27] MEDS: furosemide 40mg tablet PO SCH (07:36)
[2019-06-27] MEDS: HYDROchlorothiazide 12.5mg capsule PO SCH (07:36)
[2019-06-27] MEDS: varenicline tartrate 0.5mg tablet PO SCH ×2 (07:36→20:29)
[2019-06-27] MEDS: buprenorphine/naloxone 8MG-2MG SUBlingual film SL SCH ×3 (07:36→20:18)
[2019-06-27] MEDS: atorvastatin 20mg tablet PO SCH (07:36)
[2019-06-27] MEDS: losartan 50mg tablet PO SCH (07:36)
[2019-06-27] MEDS: heparin, porcine 5000 units/ml vial SQ SCH ×2 (07:37→15:35)
[2019-06-27] MEDS: LORazepam 2 mg/ml vial IV PRN ×3 (07:47→21:55)
[2019-06-27] MEDS: ketorolac tromethamine 15mg/ml inj. IV PRN ×2 (10:49→17:13)
--- NOTE | 2019-06-27 11:30 | NUR ---
Changed patient dressing/ 4x4, ivana, joseph.
--- NOTE | 2019-06-27 13:47 | NUR ---
Problems reprioritized. Patient report given, questions answered & plan of care reviewed with Christine Britt
--- NOTE | 2019-06-27 13:53 | NUR ---
Patient in room PCU 3010. I have received report from Robi TRUJILLO and had the opportunity to ask questions and assume patient care.
[2019-06-27] MEDS ORDERED: VANCOMYCIN LEVEL IV ONE (15:30)
--- NOTE | 2019-06-27 18:19 | NUR ---
Problems reprioritized. Patient report given, questions answered & plan of care reviewed with Timoteo TRUJILLO.
[2019-06-27] MEDS: quetiapine 100mg tablet PO SCH (20:18)
[2019-06-27] MEDS: insulin glargine (Lantus) pen - multi-dose SQ SCH (21:00)
[2019-06-28] VITALS (7 sets, daily range): BP systolic 126–168; BP diastolic 53–96
[2019-06-28] MEDS: heparin, porcine 5000 units/ml vial SQ SCH ×4 (00:10→23:13)
[2019-06-28] MEDS: ketorolac tromethamine 15mg/ml inj. IV PRN ×4 (00:11→21:24)
[2019-06-28] MEDS: piperacillin/tazo 3.375gm/50ml 50 ML IV SCH ×4 (00:14→23:13)
[2019-06-28 06:12] LABS: BASOPHILS % (AUTO) 0.9 % (0-1); EOSINOPHILS # (AUTO) 0.3 X10'3 (0-0.9); EOSINOPHILS % (AUTO) 6.1 % (0-6); HEMOGLOBIN 11.9 g/dl (14.0-17.9); LYMPHOCYTES # (AUTO) 0.7 X10'3 (1.1-4.8); LYMPHOCYTES % (AUTO) 16.3 % (21-51); MEAN CORPUSCULAR HEMOGLOBIN 27.1 PG (27.0-31.0); MEAN CORPUSCULAR VOLUME 79.7 FL (78-98); MEAN PLATELET VOLUME 7.3 FL (7.4-10.4); MONOCYTES # (AUTO) 0.4 X10'3 (0-0.9); NEUTROPHILS # (AUTO) 2.8 X10'3 (1.8-7.7); NEUTROPHILS % (AUTO) 67.7 % (42-75); PLATELET COUNT 153 X10'3 (140-440); RED BLOOD COUNT 4.39 X10'6 (4.70-6.10); RED CELL DISTRIBUTION WIDTH 17.7 % (11.5-14.5); WHITE BLOOD COUNT 4.2 X10'3 (4.5-11.0)
--- NOTE | 2019-06-28 06:12 | NUR ---
Problems reprioritized. Patient report given, questions answered & plan of care reviewed with Neville TRUJILLO. Addendum: 06/28/19 at 0619 by Gualberto Fenton RN Jazmin TRUJILLO
[2019-06-28 06:53] LABS: ALANINE AMINOTRANSFERASE 25 U/L (12-78); ALBUMIN 3.3 G/DL (3.4-5.0); ALBUMIN/GLOBULIN RATIO 0.8 (1.1-1.5); ALKALINE PHOSPHATASE 71 IU/L (46-116); ANION GAP 3 (8-16); ASPARTATE AMINO TRANSFERASE 23 U/L (10-37); BILIRUBIN,TOTAL 0.5 MG/DL (0.1-1.0); BLOOD UREA NITROGEN 27 MG/DL (7-18); BUN/CREATININE RATIO 27.8 (5.4-32.0); CALCIUM 9.2 MG/DL (8.5-10.1); CHLORIDE 105 MMOL/L (99-107); CREATININE 0.97 MG/DL (0.60-1.10); GLUCOSE 120 MG/DL (70-104); MAGNESIUM 2.1 MG/DL (1.5-2.4); SODIUM 140 MMOL/L (135-145); TOTAL CARBON DIOXIDE 32.2 MMOL/L (24-32); TOTAL PROTEIN 7.3 G/DL (6.4-8.2); eGFR 79 ML/MIN
[2019-06-28] MEDS: LORazepam 2 mg/ml vial IV PRN ×3 (07:22→21:25)
[2019-06-28] MEDS: VANCOmycin 1250MG/NS 250ml Bag 250 ML IV SCH ×3 (07:24→23:13)
[2019-06-28] MEDS: OMEGA-3/DHA/EPA/FISH OIL 1 EACH CAPSULE.DR PO SCH ×2 (07:25→20:19)
[2019-06-28] MEDS: losartan 50mg tablet PO SCH (07:25)
[2019-06-28] MEDS: HYDROchlorothiazide 12.5mg capsule PO SCH (07:25)
[2019-06-28] MEDS: docusate sod 250mg capsule PO SCH ×2 (07:25→20:19)
[2019-06-28] MEDS: buprenorphine/naloxone 8MG-2MG SUBlingual film SL SCH ×3 (07:25→20:20)
[2019-06-28] MEDS: aspirin 81mg tablet.DR PO SCH (07:25)
[2019-06-28] MEDS: atorvastatin 20mg tablet PO SCH (07:25)
[2019-06-28] MEDS: potassium chloride 10mEq ER tablet PO SCH (07:25)
[2019-06-28] MEDS: pregabalin 75mg capsule PO SCH ×2 (07:25→20:19)
[2019-06-28] MEDS: pantoprazole 40mg Tablet.DR PO SCH (07:26)
[2019-06-28] MEDS: furosemide 40mg tablet PO SCH (07:26)
[2019-06-28] MEDS: vitamin D (cholecalciferol) 1,000 unit tablet PO SCH (07:26)
[2019-06-28] MEDS: varenicline tartrate 0.5mg tablet PO SCH ×2 (07:30→20:19)
[2019-06-28] MEDS: K and/or MAG REPLACEMENT MC SCH ×2 (07:42→20:00)
--- NOTE | 2019-06-28 08:05 | NUR ---
Received call from Desiree in [facility], patient has positive culture in Right foot wound that is positive for MRSA. I informed primary nurse.
[2019-06-28] MEDS ORDERED: LORazepam 2 mg/ml vial IM ONE (09:35)
[2019-06-28] MEDS ORDERED: LORazepam 2 mg/ml vial IV ONE (10:05)
--- NOTE | 2019-06-28 12:30 | NUR ---
Pt TC: Pt requests oatmeal/cream of wheat w/ each meal since typically is diet at home. Dietary notified of preferences. Addendum: 06/28/19 at [address] Amended: Links added.
--- NOTE | 2019-06-28 18:26 | NUR ---
Problems reprioritized. Patient report given, questions answered & plan of care reviewed with Shu TRUJILLO.
--- NOTE | 2019-06-28 19:31 | NUR ---
Patient in room PCU 3010. I have received report from RONNIE Wu and had the opportunity to ask questions and assume patient care.
[2019-06-28] MEDS: quetiapine 100mg tablet PO SCH (20:19)
[2019-06-28] MEDS: insulin glargine (Lantus) pen - multi-dose SQ SCH (21:00)
[2019-06-29] MEDS: piperacillin/tazo 3.375gm/50ml 50 ML IV SCH ×2 (00:57→08:08)
[2019-06-29 02:00] VITALS: BP 135/85
[2019-06-29 05:22] LABS: BASOPHILS % (AUTO) 0.7 % (0-1); EOSINOPHILS # (AUTO) 0.3 X10'3 (0-0.9); HEMATOCRIT 35.7 % (42.0-52.0); HEMOGLOBIN 11.9 g/dl (14.0-17.9); LYMPHOCYTES # (AUTO) 0.6 X10'3 (1.1-4.8); LYMPHOCYTES % (AUTO) 16.2 % (21-51); MEAN CORPUSCULAR HEMOGLOBIN 26.6 PG (27.0-31.0); MEAN CORPUSCULAR HGB CONC 33.3 g/dL (33.0-36.5); MEAN CORPUSCULAR VOLUME 79.8 FL (78-98); MEAN PLATELET VOLUME 7.7 FL (7.4-10.4); MONOCYTES # (AUTO) 0.4 X10'3 (0-0.9); MONOCYTES % (AUTO) 9.1 % (2-12); NEUTROPHILS # (AUTO) 2.7 X10'3 (1.8-7.7); PLATELET COUNT 156 X10'3 (140-440); RED BLOOD COUNT 4.47 X10'6 (4.70-6.10); RED CELL DISTRIBUTION WIDTH 17.8 % (11.5-14.5)
[2019-06-29] MEDS: LORazepam 2 mg/ml vial IV PRN ×3 (06:00→18:37)
[2019-06-29] MEDS: ketorolac tromethamine 15mg/ml inj. IV PRN ×3 (06:00→18:38)
--- NOTE | 2019-06-29 06:06 | NUR ---
Problems reprioritized. Patient report given, questions answered & plan of care reviewed with RONNIE Wu.
[2019-06-29 06:07] LABS: ALANINE AMINOTRANSFERASE 24 U/L (12-78); ALBUMIN 3.3 G/DL (3.4-5.0); ALBUMIN/GLOBULIN RATIO 0.8 (1.1-1.5); ALKALINE PHOSPHATASE 72 IU/L (46-116); ANION GAP 6 (8-16); ASPARTATE AMINO TRANSFERASE 22 U/L (10-37); BILIRUBIN,TOTAL 0.4 MG/DL (0.1-1.0); BLOOD UREA NITROGEN 26 MG/DL (7-18); BUN/CREATININE RATIO 26.5 (5.4-32.0); CALCIUM 9.1 MG/DL (8.5-10.1); CHLORIDE 103 MMOL/L (99-107); CREATININE 0.98 MG/DL (0.60-1.10); GLUCOSE 118 MG/DL (70-104); MAGNESIUM 2.1 MG/DL (1.5-2.4); SODIUM 143 MMOL/L (135-145); TOTAL CARBON DIOXIDE 34.2 MMOL/L (24-32); TOTAL PROTEIN 7.3 G/DL (6.4-8.2); eGFR 78 ML/MIN
--- NOTE | 2019-06-29 06:12 | NUR ---
Patient in room PCU 3010. I have received report from Shu TRUJILLO and had the opportunity to ask questions and assume patient care.
[2019-06-29 07:00] VITALS: BP 152/96
[2019-06-29] MEDS: K and/or MAG REPLACEMENT MC SCH ×2 (08:00→20:00)
[2019-06-29] MEDS: VANCOmycin 1250MG/NS 250ml Bag 250 ML IV SCH ×2 (08:08→17:11)
[2019-06-29] MEDS: pantoprazole 40mg Tablet.DR PO SCH (08:09)
[2019-06-29] MEDS: buprenorphine/naloxone 8MG-2MG SUBlingual film SL SCH ×3 (08:09→20:31)
[2019-06-29] MEDS: losartan 50mg tablet PO SCH (08:09)
[2019-06-29] MEDS: atorvastatin 20mg tablet PO SCH (08:09)
[2019-06-29] MEDS: HYDROchlorothiazide 12.5mg capsule PO SCH (08:09)
[2019-06-29] MEDS: aspirin 81mg tablet.DR PO SCH (08:09)
[2019-06-29] MEDS: vitamin D (cholecalciferol) 1,000 unit tablet PO SCH (08:09)
[2019-06-29] MEDS: furosemide 40mg tablet PO SCH (08:09)
[2019-06-29] MEDS: OMEGA-3/DHA/EPA/FISH OIL 1 EACH CAPSULE.DR PO SCH ×2 (08:09→20:29)
[2019-06-29] MEDS: potassium chloride 10mEq ER tablet PO SCH (08:09)
[2019-06-29] MEDS: docusate sod 250mg capsule PO SCH ×2 (08:09→20:31)
[2019-06-29] MEDS: pregabalin 75mg capsule PO SCH ×2 (08:09→20:30)
[2019-06-29] MEDS: heparin, porcine 5000 units/ml vial SQ SCH ×2 (08:09→17:13)
[2019-06-29] MEDS: varenicline tartrate 0.5mg tablet PO SCH ×2 (08:09→20:31)
[2019-06-29 11:00] VITALS: BP 143/74
--- NOTE | 2019-06-29 11:02 | NUR ---
Wound care came to evaluate needs for wound care to the right foot. Surgical interventions with Dr. East done on Saturday. Nursing to follow wound care orders from surgeon that is ordered. If any other intervention needed reconsult wound care.
--- NOTE | 2019-06-29 11:40 | NUR ---
Initial: Patient is s/p partial resection of 5th metatarsal ray on right foot on 06/25; admitted with osteomyelitis. Great appetite, eating 75-100% PO carb controlled diet and meeting nutrition needs with double eggs with breakfast and double meat with lunch and dinner. Spoke with patient again this morning, preference is for either oatmeal or cream of wheat with each meal for increased fiber r/t constipation; explained that can send with each meal and the carbs will be accounted for as he is on a carb controlled diet, patient verbalized understanding; recommend sending oatmeal in view of higher fiber content. he is also receiving BID colace for bowel regularity. Recommend: 1. continue carb controlled diet 2. continue oatmeal with all meals, d/w dietary 3. routine bowel care 4. weight per rx Addendum: 06/29/19 at [address] Amended: Links added.
--- NOTE | 2019-06-29 14:05 | NUR ---
Entered patient's room to find his foot dressings completely off, patient stated "the doctor took it off." RN positioned patient with foot elevated and told patient to wait a few minutes, RN would be back to re-dress his incision. Upon re-entering room, patient had attempted to wrap his foot on his own. In the process, the newly placed PICC line appeared to be leaking blood. RN asked patient why he stood up to wrap his foot, patient stated "I had to pee what else do you want me to do?!" Patient re-educated on importance of maintaining his NWB status on his R leg. PICC nurse paged to assess and patient's foot was wrapped. PICC nurse stated it is still good to use, dressing was changed. Will continue to monitor and re-assess
[2019-06-29 15:00] VITALS: BP 157/70
--- NOTE | 2019-06-29 15:14 | NUR ---
Paged PICC nurse ISA Marcum. [phone] Please come assess PICC and possibly place new. Patient dislodged while trying to do his own wound care. Thank you!
--- NOTE | 2019-06-29 16:50 | NUR ---
Pt pulled picc line out by 1 cm, still ok to use, dressings and stayfix changed using sterile technique. Pt educated on need to leave picc line alone and not pull on line. Pt denies any unanswered questions, problems or complaints. RAUDEL PICC RONNIE
--- NOTE | 2019-06-29 17:27 | NUR ---
[facility] INFORMATION: REF: [id number] LOT: [id number] EXP: 03/10/2020
--- NOTE | 2019-06-29 18:06 | NUR ---
Problems reprioritized. Patient report given, questions answered & plan of care reviewed with Shu TRUJILLO.
--- NOTE | 2019-06-29 18:30 | NUR ---
Patient in room PCU 3010. I have received report from RONNIE Wu and had the opportunity to ask questions and assume patient care.
[2019-06-29 19:37] VITALS: BP 185/90
--- NOTE | 2019-06-29 19:41 | NUR ---
Patient in room PCU 3010. I have received report from RONNIE Wu and had the opportunity to ask questions and assume patient care.
--- NOTE | 2019-06-29 19:41 | NUR ---
Sent to [facility] PAGER ID: [phone] MESSAGE: Room 3010 Marcum, Michael: Pt had I& D of R foot Chronic Suboxone use Patient on Colace, requesting enema for bowel care. He is constipated. Thanks, Shu [phone]
[2019-06-29] MEDS: quetiapine 100mg tablet PO SCH (20:31)
[2019-06-29] MEDS: insulin glargine (Lantus) pen - multi-dose SQ SCH (21:00)
--- NOTE | 2019-06-29 21:00 | NUR ---
Report recd from sun Beckett.
[2019-06-29 22:00] VITALS: BP 175/83
--- NOTE | 2019-06-29 22:54 | NUR ---
Problems reprioritized. Patient report given, questions answered & plan of care reviewed with RONNIE Montanez.
[2019-06-30] MEDS: VANCOmycin 1250MG/NS 250ml Bag 250 ML IV SCH ×2 (00:50→10:11)
[2019-06-30] MEDS: ketorolac tromethamine 15mg/ml inj. IV PRN ×2 (00:51→10:26)
[2019-06-30] MEDS: heparin, porcine 5000 units/ml vial SQ SCH ×2 (00:51→10:26)
[2019-06-30] MEDS: LORazepam 2 mg/ml vial IV PRN ×3 (00:52→14:08)
[2019-06-30 02:00] VITALS: BP 138/76
[2019-06-30 06:00] VITALS: BP 73/37
--- NOTE | 2019-06-30 06:31 | NUR ---
Report given to sun Ryan and sun Morrison.
[2019-06-30 07:00] VITALS: BP 128/77
[2019-06-30] MEDS: K and/or MAG REPLACEMENT MC SCH (08:00)
[2019-06-30] MEDS: docusate sod 250mg capsule PO SCH (08:15)
[2019-06-30] MEDS: potassium chloride 10mEq ER tablet PO SCH (08:15)
[2019-06-30] MEDS: pregabalin 75mg capsule PO SCH (08:15)
[2019-06-30] MEDS: atorvastatin 20mg tablet PO SCH (08:15)
[2019-06-30] MEDS: furosemide 40mg tablet PO SCH (08:15)
--- NOTE | 2019-06-30 08:15 | NUR ---
Pt blood pressure meds were held after 0600 blood pressure 73/37 after sitting patient up back in bed and changing vitals machine bp went to 128/78.
--- NOTE | 2019-06-30 08:15 | NUR ---
Pt refused suboxone said it was to early
[2019-06-30] MEDS: vitamin D (cholecalciferol) 1,000 unit tablet PO SCH (08:18)
[2019-06-30] MEDS: pantoprazole 40mg Tablet.DR PO SCH (08:18)
[2019-06-30] MEDS: varenicline tartrate 0.5mg tablet PO SCH (10:05)
[2019-06-30] MEDS: buprenorphine/naloxone 8MG-2MG SUBlingual film SL SCH ×2 (10:05→14:19)
[2019-06-30] MEDS ORDERED: LIDOcaine 1% (10mg/ml) 2ml vial SQ STA (10:11)
[2019-06-30] MEDS ORDERED: triamcinolone acetonide 40mg/ml inj IM ONE (10:15)
[2019-06-30] MEDS: OMEGA-3/DHA/EPA/FISH OIL 1 EACH CAPSULE.DR PO SCH (10:25)
[2019-06-30] MEDS: losartan 50mg tablet PO SCH (10:26)
[2019-06-30] MEDS: HYDROchlorothiazide 12.5mg capsule PO SCH (10:26)
[2019-06-30] MEDS: aspirin 81mg tablet.DR PO SCH (10:27)
[2019-06-30] MEDS ORDERED: LIDOcaine 1% (10mg/ml) 2ml vial ONE (10:47)
[2019-06-30 11:00] VITALS: BP 177/75
--- NOTE | 2019-06-30 11:54 | NUR ---
Patient doing well sitting at bed side. Resource nurse was taking blood sugars on him also.
[2019-06-30 14:44] VITALS: BP 172/77
--- NOTE | 2019-06-30 16:32 | NUR ---
Reviewed charting with Tamiko TRUJILLO
== END 2019-06-30 15:05 | DRG 628 ==
LOC: ER 10:44 → ED HOLD 13:55 → UNDOADMIN 13:55 → PCU 3S 14:05 → ED HOLD 16:14 → PCU 3S 16:14 → PACU 06-26 07:33 → PCU 3S 06-26 07:33
PROVIDERS: ADMIT Family Medicine; ATTEND Family Medicine
PROC: 0QBN0ZZ Excision of Right Metatarsal, Open Approach (ICD-10-PCS; principal; 2019-06-26 06:53)
PROC: 02HV33Z Insertion of Infusion Device into Superior Vena Cava, Percutaneous Approach (ICD-10-PCS; 2019-06-29)
PROC: B548ZZA Ultrasonography of Superior Vena Cava, Guidance (ICD-10-PCS; 2019-06-29)
PROC: 3E0233Z Introduction of Anti-inflammatory into Muscle, Percutaneous Approach (ICD-10-PCS; 2019-06-30)
PROC: 3E023BZ Introduction of Anesthetic Agent into Muscle, Percutaneous Approach (ICD-10-PCS; 2019-06-30)
DX: E11.69 Type 2 diabetes mellitus with other specified complication (principal); S72.011A Unspecified intracapsular fracture of right femur, initial encounter for closed fracture; M86.171 Other acute osteomyelitis, right ankle and foot; Z68.41 Body mass index [BMI] 40.0-44.9, adult; I10 Essential (primary) hypertension; K21.9 Gastro-esophageal reflux disease without esophagitis; E78.5 Hyperlipidemia, unspecified; E66.01 Morbid (severe) obesity due to excess calories; F12.90 Cannabis use, unspecified, uncomplicated; E11.42 Type 2 diabetes mellitus with diabetic polyneuropathy; B95.62 Methicillin resistant Staphylococcus aureus infection as the cause of diseases classified elsewhere; F43.10 Post-traumatic stress disorder, unspecified; G89.4 Chronic pain syndrome; I25.10 Atherosclerotic heart disease of native coronary artery without angina pectoris; Z88.8 Allergy status to other drugs, medicaments and biological substances; I25.2 Old myocardial infarction; Z82.49 Family history of ischemic heart disease and other diseases of the circulatory system; Z87.891 Personal history of nicotine dependence; Z95.5 Presence of coronary angioplasty implant and graft; W18.39XA Other fall on same level, initial encounter; Y93.89 Activity, other specified; Y92.89 Other specified places as the place of occurrence of the external cause; Y99.8 Other external cause status
CPT/HCPCS: 36415; 36573; 71045; 72192; 73030; 73630; 73700; 76937; 80053; 80202; 82948; 83605; 83735; 85025; 85610; 85651; 85730; 86140; 87040; 87070; 87075; 87077; 87081; 87102; 87186; 93005; 94760; 96374; 96375; 97116; 97161; 97530; 99285; A4215; A4618; A6223; A6449; A7000; G0378; J0690; J1644; J1815; J1885; J2001; J2060; J2250; J2270; J2405; J2543; J2704; J3010; J3370; J3490; J7040; J7120

== ENCOUNTER → 2019-06-24 | Day surgery (SDC) | payer MEDICARE, MEDICAID ==
[~2019-06-24] MED LIST changes: +CHOL100025 PO; +CHOL10006 PO; +CLOP75TA33 PO; +LIDOcaine 2% 5ml jelly ONE; +NITR0.4T51 SL; +POTA10CA44 PO; +QUET100T33 PO
== END | disposition home or self-care (01) ==
LOC: WOUND CARE 09:45
PROVIDERS: ATTEND Nurse Practitioner
DX: T81.30XD Disruption of wound, unspecified, subsequent encounter (principal); E11.621 Type 2 diabetes mellitus with foot ulcer; L97.512 Non-pressure chronic ulcer of other part of right foot with fat layer exposed; E11.65 Type 2 diabetes mellitus with hyperglycemia; E11.40 Type 2 diabetes mellitus with diabetic neuropathy, unspecified; E11.69 Type 2 diabetes mellitus with other specified complication; M86.9 Osteomyelitis, unspecified; I25.10 Atherosclerotic heart disease of native coronary artery without angina pectoris; I10 Essential (primary) hypertension; E66.01 Morbid (severe) obesity due to excess calories; K21.9 Gastro-esophageal reflux disease without esophagitis; E78.5 Hyperlipidemia, unspecified; I25.2 Old myocardial infarction; G47.33 Obstructive sleep apnea (adult) (pediatric); G89.29 Other chronic pain; F32.9 Major depressive disorder, single episode, unspecified; F41.9 Anxiety disorder, unspecified; F12.10 Cannabis abuse, uncomplicated; F17.200 Nicotine dependence, unspecified, uncomplicated; Z79.899 Other long term (current) drug therapy; Z79.84 Long term (current) use of oral hypoglycemic drugs; Z79.01 Long term (current) use of anticoagulants; Z79.2 Long term (current) use of antibiotics; Z79.82 Long term (current) use of aspirin; Z86.19 Personal history of other infectious and parasitic diseases; Z98.61 Coronary angioplasty status; Z68.36 Body mass index [BMI] 36.0-36.9, adult; Y83.8 Other surgical procedures as the cause of abnormal reaction of the patient, or of later complication, without mention of misadventure at the time of the procedure
CPT/HCPCS: 36416; 82948; G0463

== ENCOUNTER 2019-07-10 09:36 | Outpatient (CLI) | payer MEDICARE, MEDICAID ==
[~2019-07-10 09:36] MED LIST changes: +CHOL100025 PO; +CLOP75TA33 PO; -CLOP75TA35 PO; +NITR0.4T51 SL; +POTA10CA44 PO; -QUET-1 PO; +QUET100T33 PO
== END 2019-07-10 10:28 | disposition home or self-care (01) ==
LOC: WOUND CARE 09:36 → EDSTATUS 10:00 → WOUND CARE 10:28
PROVIDERS: ATTEND Nurse Practitioner
DX: T81.30XA Disruption of wound, unspecified, initial encounter (principal); E11.621 Type 2 diabetes mellitus with foot ulcer; L97.512 Non-pressure chronic ulcer of other part of right foot with fat layer exposed; E11.65 Type 2 diabetes mellitus with hyperglycemia; E11.40 Type 2 diabetes mellitus with diabetic neuropathy, unspecified; E11.69 Type 2 diabetes mellitus with other specified complication; M86.9 Osteomyelitis, unspecified; I25.10 Atherosclerotic heart disease of native coronary artery without angina pectoris; I10 Essential (primary) hypertension; E66.01 Morbid (severe) obesity due to excess calories; K21.9 Gastro-esophageal reflux disease without esophagitis; E78.5 Hyperlipidemia, unspecified; I25.2 Old myocardial infarction; G47.33 Obstructive sleep apnea (adult) (pediatric); G89.29 Other chronic pain; F32.9 Major depressive disorder, single episode, unspecified; F41.9 Anxiety disorder, unspecified; F12.10 Cannabis abuse, uncomplicated; F17.200 Nicotine dependence, unspecified, uncomplicated; Z79.899 Other long term (current) drug therapy; Z79.84 Long term (current) use of oral hypoglycemic drugs; Z79.01 Long term (current) use of anticoagulants; Z79.2 Long term (current) use of antibiotics; Z79.82 Long term (current) use of aspirin; Z86.19 Personal history of other infectious and parasitic diseases; Z98.61 Coronary angioplasty status; Z68.36 Body mass index [BMI] 36.0-36.9, adult; Y92.89 Other specified places as the place of occurrence of the external cause; Y83.8 Other surgical procedures as the cause of abnormal reaction of the patient, or of later complication, without mention of misadventure at the time of the procedure
CPT/HCPCS: 82948; G0463

== ENCOUNTER 2019-07-17 09:50 | Outpatient (CLI) | payer MEDICARE, MEDICAID | END 2019-07-17 11:56 | disposition home or self-care (01) | LOC: WOUND CARE 09:50 → EDSTATUS 10:00 → WOUND CARE 11:56 | PROVIDERS: ATTEND Nurse Practitioner | DX: T81.30XD Disruption of wound, unspecified, subsequent encounter (principal); E11.621 Type 2 diabetes mellitus with foot ulcer; L97.512 Non-pressure chronic ulcer of other part of right foot with fat layer exposed; E11.65 Type 2 diabetes mellitus with hyperglycemia; E11.40 Type 2 diabetes mellitus with diabetic neuropathy, unspecified; E11.69 Type 2 diabetes mellitus with other specified complication; M86.9 Osteomyelitis, unspecified; I25.10 Atherosclerotic heart disease of native coronary artery without angina pectoris; I10 Essential (primary) hypertension; E66.01 Morbid (severe) obesity due to excess calories; K21.9 Gastro-esophageal reflux disease without esophagitis; E78.5 Hyperlipidemia, unspecified; I25.2 Old myocardial infarction; G47.33 Obstructive sleep apnea (adult) (pediatric); G89.29 Other chronic pain; F32.9 Major depressive disorder, single episode, unspecified; F41.9 Anxiety disorder, unspecified; F12.10 Cannabis abuse, uncomplicated; F17.200 Nicotine dependence, unspecified, uncomplicated; Z79.899 Other long term (current) drug therapy; Z79.84 Long term (current) use of oral hypoglycemic drugs; Z79.01 Long term (current) use of anticoagulants; Z79.2 Long term (current) use of antibiotics; Z79.82 Long term (current) use of aspirin; Z86.19 Personal history of other infectious and parasitic diseases; Z98.61 Coronary angioplasty status; Z68.36 Body mass index [BMI] 36.0-36.9, adult; Y83.8 Other surgical procedures as the cause of abnormal reaction of the patient, or of later complication, without mention of misadventure at the time of the procedure | CPT/HCPCS: 36416; G0463 ==

== ENCOUNTER 2019-07-31 09:53 | Outpatient (CLI) | payer MEDICARE, MEDICAID ==
[2019-07-31] MEDS ORDERED: LIDOcaine 2% 5ml jelly ONE (10:26)
== END 2019-07-31 10:44 | disposition home or self-care (01) ==
LOC: WOUND CARE 09:53 → EDSTATUS 10:00 → WOUND CARE 10:44
PROVIDERS: ATTEND Nurse Practitioner
DX: E11.621 Type 2 diabetes mellitus with foot ulcer (principal); L97.512 Non-pressure chronic ulcer of other part of right foot with fat layer exposed; T81.30XD Disruption of wound, unspecified, subsequent encounter; E11.65 Type 2 diabetes mellitus with hyperglycemia; E11.40 Type 2 diabetes mellitus with diabetic neuropathy, unspecified; E11.69 Type 2 diabetes mellitus with other specified complication; M86.9 Osteomyelitis, unspecified; I25.10 Atherosclerotic heart disease of native coronary artery without angina pectoris; I10 Essential (primary) hypertension; E66.01 Morbid (severe) obesity due to excess calories; K21.9 Gastro-esophageal reflux disease without esophagitis; E78.5 Hyperlipidemia, unspecified; I25.2 Old myocardial infarction; G47.33 Obstructive sleep apnea (adult) (pediatric); G89.29 Other chronic pain; F32.9 Major depressive disorder, single episode, unspecified; F41.9 Anxiety disorder, unspecified; F12.10 Cannabis abuse, uncomplicated; F17.200 Nicotine dependence, unspecified, uncomplicated; Z79.899 Other long term (current) drug therapy; Z79.84 Long term (current) use of oral hypoglycemic drugs; Z79.01 Long term (current) use of anticoagulants; Z79.2 Long term (current) use of antibiotics; Z79.82 Long term (current) use of aspirin; Z86.19 Personal history of other infectious and parasitic diseases; Z98.61 Coronary angioplasty status; Z68.36 Body mass index [BMI] 36.0-36.9, adult; X58.XXXD Exposure to other specified factors, subsequent encounter
CPT/HCPCS: 36416; 82948; G0463

== ENCOUNTER 2019-08-07 09:52 | Outpatient (CLI) | payer MEDICARE, MEDICAID | END 2019-08-07 10:22 | disposition home or self-care (01) | LOC: WOUND CARE 09:52 → EDSTATUS 10:00 → WOUND CARE 10:22 | PROVIDERS: ATTEND Nurse Practitioner | DX: T81.89XD Other complications of procedures, not elsewhere classified, subsequent encounter (principal); E11.621 Type 2 diabetes mellitus with foot ulcer; E11.65 Type 2 diabetes mellitus with hyperglycemia; E11.40 Type 2 diabetes mellitus with diabetic neuropathy, unspecified; E11.69 Type 2 diabetes mellitus with other specified complication; M86.9 Osteomyelitis, unspecified; I25.10 Atherosclerotic heart disease of native coronary artery without angina pectoris; I10 Essential (primary) hypertension; E66.01 Morbid (severe) obesity due to excess calories; K21.9 Gastro-esophageal reflux disease without esophagitis; E78.5 Hyperlipidemia, unspecified; I25.2 Old myocardial infarction; G47.33 Obstructive sleep apnea (adult) (pediatric); G89.29 Other chronic pain; F32.9 Major depressive disorder, single episode, unspecified; F41.9 Anxiety disorder, unspecified; F12.10 Cannabis abuse, uncomplicated; F17.200 Nicotine dependence, unspecified, uncomplicated; Z79.899 Other long term (current) drug therapy; Z79.84 Long term (current) use of oral hypoglycemic drugs; Z79.01 Long term (current) use of anticoagulants; Z79.2 Long term (current) use of antibiotics; Z79.82 Long term (current) use of aspirin; Z86.19 Personal history of other infectious and parasitic diseases; Z68.36 Body mass index [BMI] 36.0-36.9, adult; Y83.8 Other surgical procedures as the cause of abnormal reaction of the patient, or of later complication, without mention of misadventure at the time of the procedure | CPT/HCPCS: 36416; 82948; G0463 ==

== ENCOUNTER 2019-08-28 09:35 | Inpatient (IN) | payer MEDICARE, MEDICAID ==
[2019-08-28] MEDS ORDERED: LIDOcaine 2% 5ml jelly ONE (10:10)
[2019-08-28] MEDS ORDERED: normal saline 1000ml 1,000 ML IV SCH (11:18)
[2019-08-28] MEDS ORDERED: HYDROcodone/acetaminophen 5mg/325mg tablet PO PRN (11:20)
[2019-08-28] MEDS ORDERED: magnesium 2GM in 50ml NS 50 ML IV PRN (11:20)
[2019-08-28] MEDS ORDERED: potassium Cl 20 mEq SR tablet PO PRN ×2 (11:20)
[2019-08-28] MEDS ORDERED: potassium CL 10mEq/100ml bag 100 ML IV PRN ×2 (11:20)
[2019-08-28] MEDS ORDERED: mag hydrox/Alum hydrox/simeth 30ml oral suspension PO PRN (11:20)
[2019-08-28] MEDS ORDERED: morphine 2 MG/ML inj. syringe IV PRN (11:20)
[2019-08-28] MEDS ORDERED: acetaminophen 325mg tablet PO PRN ×2 (11:20)
[2019-08-28] MEDS ORDERED: magnesium 4gm in 100ml NS 100 ML IV PRN (11:20)
[2019-08-28] MEDS ORDERED: magnesium Cl slow-release 64mg tablet PO PRN (11:20)
[2019-08-28] MEDS ORDERED: magnesium hydroxide 30ml (MOM) UD suspension PO PRN (11:20)
[2019-08-28] MEDS ORDERED: ondansetron/PF 4mg/2ml inj IV PRN (11:20)
[2019-08-28 12:00] VITALS: BP 138/77
[2019-08-28] MEDS ORDERED: vancomycin/NS 1 GM ADD-VANTAGE 250 ML IV ONE (12:30)
--- NOTE | 2019-08-28 12:30 | NUR ---
Patient complained that he didn't want Dr. Rutledge and chalino Babin. I called Dr. Rutledge and let her know this and she came to explain that the patient needed and amputation and he wasn't ready to make that decision so he decided to leave [place].
[2019-08-28 13:14] LABS: BASOPHILS % (AUTO) 0.9 % (0-1); EOSINOPHILS # (AUTO) 0.2 X10'3 (0-0.9); LYMPHOCYTES # (AUTO) 0.8 X10'3 (1.1-4.8); LYMPHOCYTES % (AUTO) 19.8 % (21-51); MEAN CORPUSCULAR HEMOGLOBIN 26.9 PG (27.0-31.0); MEAN CORPUSCULAR HGB CONC 33.3 g/dL (33.0-36.5); MEAN CORPUSCULAR VOLUME 80.8 FL (78-98); MEAN PLATELET VOLUME 7.7 FL (7.4-10.4); MONOCYTES # (AUTO) 0.3 X10'3 (0-0.9); MONOCYTES % (AUTO) 6.6 % (2-12); NEUTROPHILS # (AUTO) 2.9 X10'3 (1.8-7.7); NEUTROPHILS % (AUTO) 68.7 % (42-75); PLATELET COUNT 182 X10'3 (140-440); RED BLOOD COUNT 4.82 X10'6 (4.70-6.10); RED CELL DISTRIBUTION WIDTH 19.6 % (11.5-14.5); WHITE BLOOD COUNT 4.3 X10'3 (4.5-11.0)
[2019-08-28 13:26] LABS: ALANINE AMINOTRANSFERASE 37 U/L (12-78); ALBUMIN 3.6 G/DL (3.4-5.0); ALBUMIN/GLOBULIN RATIO 0.9 (1.1-1.5); ALKALINE PHOSPHATASE 78 IU/L (46-116); ANION GAP 4 (8-16); ASPARTATE AMINO TRANSFERASE 24 U/L (10-37); BILIRUBIN,TOTAL 0.4 MG/DL (0.1-1.0); BLOOD UREA NITROGEN 15 MG/DL (7-18); BUN/CREATININE RATIO 16.5 (5.4-32.0); CALCIUM 8.9 MG/DL (8.5-10.1); CHLORIDE 105 MMOL/L (99-107); CREATININE 0.91 MG/DL (0.60-1.10); GLUCOSE 97 MG/DL (70-104); POTASSIUM 4.3 MMOL/L (3.5-5.1); SODIUM 144 MMOL/L (135-145); TOTAL CARBON DIOXIDE 35.5 MMOL/L (24-32); TOTAL PROTEIN 7.4 G/DL (6.4-8.2); eGFR 85 ML/MIN
[2019-08-28] MEDS ORDERED: heparin, porcine 5000 units/ml vial SQ SCH (20:00)
[2019-08-28] MEDS ORDERED: K and/or MAG REPLACEMENT MC SCH (20:00)
[2019-08-28] MEDS ORDERED: temazepam 15mg capsule PO PRN (21:00)
== END 2019-08-28 12:36 | disposition left against medical advice (07) | DRG 556 ==
LOC: WOUND CARE 09:35 → ORTHO 4S 11:09 → UNDOADMIN 11:09 → ORTHO 4S 11:18 → UNDODISIN 12:36
PROVIDERS: ADMIT Internal Medicine; ATTEND Podiatrist Foot & Ankle Surgery
DX: M79.671 Pain in right foot (principal); E78.5 Hyperlipidemia, unspecified; F43.10 Post-traumatic stress disorder, unspecified; E11.9 Type 2 diabetes mellitus without complications; G89.4 Chronic pain syndrome; E66.01 Morbid (severe) obesity due to excess calories; I10 Essential (primary) hypertension; I25.10 Atherosclerotic heart disease of native coronary artery without angina pectoris; Z53.29 Procedure and treatment not carried out because of patient's decision for other reasons
CPT/HCPCS: 36415; 36416; 80053; 82948; 83036; 83605; 85025; 87040; G0378; G0463

== ENCOUNTER 2019-08-31 09:30 | Outpatient (CLI) | payer MEDICARE, MEDICAID ==
[2019-08-31] MEDS ORDERED: LIDOcaine 2% 5ml jelly ONE (10:08)
== END 2019-08-31 11:06 | disposition home or self-care (01) ==
LOC: WOUND CARE 09:30 → EDSTATUS 10:00 → WOUND CARE 11:06
PROVIDERS: ATTEND Nurse Practitioner Family
DX: T81.89XD Other complications of procedures, not elsewhere classified, subsequent encounter (principal); E11.621 Type 2 diabetes mellitus with foot ulcer; L97.512 Non-pressure chronic ulcer of other part of right foot with fat layer exposed; E11.65 Type 2 diabetes mellitus with hyperglycemia; E11.40 Type 2 diabetes mellitus with diabetic neuropathy, unspecified; E11.69 Type 2 diabetes mellitus with other specified complication; M86.9 Osteomyelitis, unspecified; I25.10 Atherosclerotic heart disease of native coronary artery without angina pectoris; I10 Essential (primary) hypertension; E66.01 Morbid (severe) obesity due to excess calories; K21.9 Gastro-esophageal reflux disease without esophagitis; E78.5 Hyperlipidemia, unspecified; I25.2 Old myocardial infarction; G47.33 Obstructive sleep apnea (adult) (pediatric); G89.29 Other chronic pain; F32.9 Major depressive disorder, single episode, unspecified; F41.9 Anxiety disorder, unspecified; F12.10 Cannabis abuse, uncomplicated; F17.200 Nicotine dependence, unspecified, uncomplicated; Z79.899 Other long term (current) drug therapy; Z79.84 Long term (current) use of oral hypoglycemic drugs; Z79.01 Long term (current) use of anticoagulants; Z79.2 Long term (current) use of antibiotics; Z79.82 Long term (current) use of aspirin; Z86.19 Personal history of other infectious and parasitic diseases; Z68.36 Body mass index [BMI] 36.0-36.9, adult; Y83.8 Other surgical procedures as the cause of abnormal reaction of the patient, or of later complication, without mention of misadventure at the time of the procedure
CPT/HCPCS: 36416; 82948; G0463

== ENCOUNTER 2019-09-04 09:40 | Day surgery (SDC) | payer MEDICARE, MEDICAID ==
[2019-09-04] MEDS ORDERED: LIDOcaine 2% 5ml jelly ONE (10:05)
== END 2019-09-04 10:44 | disposition home or self-care (01) ==
LOC: WOUND CARE 09:40
PROVIDERS: ATTEND Nurse Practitioner
DX: T81.89XD Other complications of procedures, not elsewhere classified, subsequent encounter (principal); E11.621 Type 2 diabetes mellitus with foot ulcer; L97.512 Non-pressure chronic ulcer of other part of right foot with fat layer exposed; L84 Corns and callosities; E11.65 Type 2 diabetes mellitus with hyperglycemia; E11.40 Type 2 diabetes mellitus with diabetic neuropathy, unspecified; E11.69 Type 2 diabetes mellitus with other specified complication; M86.9 Osteomyelitis, unspecified; I25.10 Atherosclerotic heart disease of native coronary artery without angina pectoris; I10 Essential (primary) hypertension; E66.01 Morbid (severe) obesity due to excess calories; K21.9 Gastro-esophageal reflux disease without esophagitis; E78.5 Hyperlipidemia, unspecified; I25.2 Old myocardial infarction; G47.33 Obstructive sleep apnea (adult) (pediatric); G89.29 Other chronic pain; F32.9 Major depressive disorder, single episode, unspecified; F41.9 Anxiety disorder, unspecified; F12.10 Cannabis abuse, uncomplicated; F17.200 Nicotine dependence, unspecified, uncomplicated; Z79.899 Other long term (current) drug therapy; Z79.84 Long term (current) use of oral hypoglycemic drugs; Z79.01 Long term (current) use of anticoagulants; Z79.2 Long term (current) use of antibiotics; Z79.82 Long term (current) use of aspirin; Z86.19 Personal history of other infectious and parasitic diseases; Z68.36 Body mass index [BMI] 36.0-36.9, adult; Y83.8 Other surgical procedures as the cause of abnormal reaction of the patient, or of later complication, without mention of misadventure at the time of the procedure
CPT/HCPCS: 36416; 82948; 97597

== ENCOUNTER 2019-09-10 09:58 | Outpatient (CLI) | payer MEDICARE, MEDICAID | END 2019-09-10 11:04 | disposition home or self-care (01) | LOC: WOUND CARE 09:58 → EDSTATUS 10:00 → WOUND CARE 11:04 | PROVIDERS: ATTEND Nurse Practitioner | DX: T81.30XD Disruption of wound, unspecified, subsequent encounter (principal); E11.621 Type 2 diabetes mellitus with foot ulcer; L97.512 Non-pressure chronic ulcer of other part of right foot with fat layer exposed; L84 Corns and callosities; E11.65 Type 2 diabetes mellitus with hyperglycemia; E11.40 Type 2 diabetes mellitus with diabetic neuropathy, unspecified; E11.69 Type 2 diabetes mellitus with other specified complication; M86.9 Osteomyelitis, unspecified; I25.10 Atherosclerotic heart disease of native coronary artery without angina pectoris; I10 Essential (primary) hypertension; E66.01 Morbid (severe) obesity due to excess calories; K21.9 Gastro-esophageal reflux disease without esophagitis; E78.5 Hyperlipidemia, unspecified; I25.2 Old myocardial infarction; G47.33 Obstructive sleep apnea (adult) (pediatric); G89.29 Other chronic pain; F32.9 Major depressive disorder, single episode, unspecified; F41.9 Anxiety disorder, unspecified; F12.10 Cannabis abuse, uncomplicated; F17.200 Nicotine dependence, unspecified, uncomplicated; Z79.899 Other long term (current) drug therapy; Z79.84 Long term (current) use of oral hypoglycemic drugs; Z79.01 Long term (current) use of anticoagulants; Z79.2 Long term (current) use of antibiotics; Z79.82 Long term (current) use of aspirin; Z86.19 Personal history of other infectious and parasitic diseases; Z68.36 Body mass index [BMI] 36.0-36.9, adult; Y83.8 Other surgical procedures as the cause of abnormal reaction of the patient, or of later complication, without mention of misadventure at the time of the procedure | CPT/HCPCS: 36416; 82948; G0463 ==

== ENCOUNTER 2019-09-17 09:53 | Day surgery (SDC) | payer MEDICARE, MEDICAID ==
[2019-09-17] MEDS ORDERED: LIDOcaine 2% 5ml jelly ONE (10:10)
== END 2019-09-17 12:00 | disposition home or self-care (01) ==
LOC: WOUND CARE 09:53
PROVIDERS: ATTEND Nurse Practitioner
DX: T81.30XD Disruption of wound, unspecified, subsequent encounter (principal); E11.621 Type 2 diabetes mellitus with foot ulcer; L97.512 Non-pressure chronic ulcer of other part of right foot with fat layer exposed; L84 Corns and callosities; E11.65 Type 2 diabetes mellitus with hyperglycemia; E11.40 Type 2 diabetes mellitus with diabetic neuropathy, unspecified; E11.69 Type 2 diabetes mellitus with other specified complication; M86.9 Osteomyelitis, unspecified; I25.10 Atherosclerotic heart disease of native coronary artery without angina pectoris; I10 Essential (primary) hypertension; E66.01 Morbid (severe) obesity due to excess calories; K21.9 Gastro-esophageal reflux disease without esophagitis; E78.5 Hyperlipidemia, unspecified; I25.2 Old myocardial infarction; G47.33 Obstructive sleep apnea (adult) (pediatric); G89.29 Other chronic pain; F32.9 Major depressive disorder, single episode, unspecified; F41.9 Anxiety disorder, unspecified; F12.10 Cannabis abuse, uncomplicated; F17.200 Nicotine dependence, unspecified, uncomplicated; Z79.899 Other long term (current) drug therapy; Z79.84 Long term (current) use of oral hypoglycemic drugs; Z79.01 Long term (current) use of anticoagulants; Z79.2 Long term (current) use of antibiotics; Z79.82 Long term (current) use of aspirin; Z86.19 Personal history of other infectious and parasitic diseases; Z68.36 Body mass index [BMI] 36.0-36.9, adult; Y83.8 Other surgical procedures as the cause of abnormal reaction of the patient, or of later complication, without mention of misadventure at the time of the procedure
CPT/HCPCS: 36416; 82948; 97597

== ENCOUNTER 2019-12-02 10:19 | Emergency (ER) | payer MEDICARE, MEDICAID ==
[~2019-12-02] VITALS: Ht 190.5 cm; Wt 136.4 kg
[2019-12-02 10:21] VITALS: BP 144/87
[2019-12-02] MEDS ORDERED: ORPH100T2 PO (11:14)
[2019-12-02] MEDS ORDERED: ACET-1025 PO (11:14)
== END 2019-12-02 11:39 | disposition home or self-care (01) ==
LOC: ER 10:21
DX: M25.512 Pain in left shoulder (principal); I25.10 Atherosclerotic heart disease of native coronary artery without angina pectoris; I10 Essential (primary) hypertension; I25.2 Old myocardial infarction; E11.9 Type 2 diabetes mellitus without complications; F12.90 Cannabis use, unspecified, uncomplicated; G89.29 Other chronic pain; Z98.61 Coronary angioplasty status; Z98.890 Other specified postprocedural states; Z72.89 Other problems related to lifestyle; Z88.8 Allergy status to other drugs, medicaments and biological substances; Z79.82 Long term (current) use of aspirin; Z79.899 Other long term (current) drug therapy
CPT/HCPCS: 99282

== ENCOUNTER 2022-08-31 14:53 | Emergency (ER) | payer MEDICARE, MEDICAID ==
[~2022-08-31] VITALS: Ht 193 cm; Wt 140.9 kg
[~2022-08-31 14:53] MED LIST changes: +ORPH100T4 PO; -POTA10CA44 PO; +POTA10CA85 PO; -QUET100T33 PO; +QUET100T34 PO
[2022-08-31 15:09] VITALS: BP 135/61
[2022-08-31] MEDS ORDERED: LORA-269 PO (16:00)
[2022-08-31] MEDS ORDERED: LORazepam 1 MG tablet PO ONE (16:00)
== END 2022-08-31 16:17 | disposition home or self-care (01) ==
LOC: ER 14:54
DX: F41.9 Anxiety disorder, unspecified (principal); I11.9 Hypertensive heart disease without heart failure; E11.9 Type 2 diabetes mellitus without complications; K21.9 Gastro-esophageal reflux disease without esophagitis; G89.29 Other chronic pain; M54.9 Dorsalgia, unspecified; F32.A Depression, unspecified; F17.200 Nicotine dependence, unspecified, uncomplicated; Z88.8 Allergy status to other drugs, medicaments and biological substances; Z88.1 Allergy status to other antibiotic agents; Z79.82 Long term (current) use of aspirin
CPT/HCPCS: 99283

== ENCOUNTER 2022-09-02 15:47 | Emergency (ER) | payer MEDICARE, MEDICAID ==
[~2022-09-02] VITALS: Ht 193 cm; Wt 142.2 kg
[~2022-09-02 15:47] MED LIST changes: +LORA-269 PO
[2022-09-02 16:46] VITALS: BP 129/60
[2022-09-02] MEDS ORDERED: bacitracin 15gm ointment TP ONE (17:40)
== END 2022-09-02 18:19 | disposition home or self-care (01) ==
LOC: ER 15:47
DX: S50.822A Blister (nonthermal) of left forearm, initial encounter (principal); I10 Essential (primary) hypertension; K21.9 Gastro-esophageal reflux disease without esophagitis; E11.9 Type 2 diabetes mellitus without complications; F12.90 Cannabis use, unspecified, uncomplicated; Z88.8 Allergy status to other drugs, medicaments and biological substances; X58.XXXA Exposure to other specified factors, initial encounter; Y93.89 Activity, other specified; Y92.89 Other specified places as the place of occurrence of the external cause; Y99.8 Other external cause status
CPT/HCPCS: 99282; A6449

== ENCOUNTER 2023-01-05 09:27 | Emergency (ER) | payer MEDICARE, MEDICAID ==
[~2023-01-05] VITALS: Ht 193 cm; Wt 140.5 kg
[~2023-01-05 09:27] MED LIST changes: -PREG150C46 PO; +PREG150C47 PO
[2023-01-05 10:10] LABS: BILIRUBIN,URINE NEGATIVE (Neg); CLARITY,URINE CLEAR (Clear); COLOR,URINE YELLOW (Yellow); GLUCOSE, URINE NEGATIVE (Neg); KETONES,URINE NEGATIVE (Neg); LEUKOCYTE ESTERASE ,URINE NEGATIVE (Neg); NITRITES, URINE NEGATIVE (Neg); OCCULT BLOOD,URINE NEGATIVE (Neg); PROTEIN,URINE NEGATIVE (Neg)
[2023-01-05 10:11] LABS: UA COLLECTION TYPE CLN CATCH MIDSTREAM
--- NOTE | 2023-01-05 10:17 | NUR ---
MSE COMPLETED BY
[2023-01-05] MEDS ORDERED: normal saline 1000ml 1,000 ML IV ONE (10:25)
[2023-01-05] MEDS ORDERED: lactulose 20gm/30ml cup PO ONE (10:40)
--- NOTE | 2023-01-05 11:42 | NUR ---
I have reviewed and agree with all interventions, assessments performed and documented by GENERAL LEDGER BOOKKEEPER
[2023-01-05 11:58] LABS: BASOPHILS % (AUTO) 0.7 % (0-1); EOSINOPHILS # (AUTO) 0.1 X10'3 (0-0.9); EOSINOPHILS % (AUTO) 2.7 % (0-6); HEMATOCRIT 40.9 % (42.0-52.0); HEMOGLOBIN 14.1 g/dl (14.0-17.9); LYMPHOCYTES # (AUTO) 0.9 X10'3 (1.1-4.8); LYMPHOCYTES % (AUTO) 19.8 % (21-51); MEAN CORPUSCULAR HEMOGLOBIN 30.4 PG (27.0-31.0); MEAN CORPUSCULAR HGB CONC 34.6 g/dL (33.0-36.5); MEAN CORPUSCULAR VOLUME 87.9 FL (78-98); MEAN PLATELET VOLUME 7.6 FL (7.4-10.4); MONOCYTES # (AUTO) 0.3 X10'3 (0-0.9); MONOCYTES % (AUTO) 6.7 % (2-12); NEUTROPHILS # (AUTO) 3.3 X10'3 (1.8-7.7); NEUTROPHILS % (AUTO) 70.1 % (42-75); PLATELET COUNT 146 X10'3 (140-440); RED BLOOD COUNT 4.66 X10'6 (4.70-6.10); RED CELL DISTRIBUTION WIDTH 16.8 % (11.5-14.5); WHITE BLOOD COUNT 4.7 X10'3 (4.5-11.0)
[2023-01-05 12:11] LABS: ALANINE AMINOTRANSFERASE 25 U/L (12-78); ALBUMIN 3.5 G/DL (3.4-5.0); ALBUMIN/GLOBULIN RATIO 0.9 (1.1-1.5); ALKALINE PHOSPHATASE 93 IU/L (46-116); ANION GAP 6 (8-16); ASPARTATE AMINO TRANSFERASE 22 U/L (10-37); BLOOD UREA NITROGEN 11 MG/DL (7-18); BUN/CREATININE RATIO 14.9 (10.0-20.0); CALCIUM 9.1 MG/DL (8.5-10.1); CHLORIDE 102 MMOL/L (99-107); CREATININE 0.74 MG/DL (0.60-1.10); GLUCOSE 101 MG/DL (70-104); LIPASE 12 U/L (16-77); POTASSIUM 3.9 MMOL/L (3.5-5.1); SODIUM 138 MMOL/L (135-145); TOTAL CARBON DIOXIDE 30.2 MMOL/L (24-32); TOTAL PROTEIN 7.6 G/DL (6.4-8.2); eCRCL 122 ML/MIN; eGFR > 90 ML/MIN
[2023-01-05] MEDS ORDERED: methylnaltrexone br 12mg/0.6ml inj***SubQ only SQ ONE (13:00)
[2023-01-05] MEDS ORDERED: LACT10SO78 PO (13:11)
[2023-01-05 13:47] VITALS: BP 146/69; PULSE 60; RESP 19; TEMP 97.9; O2SAT 97
== END 2023-01-05 13:30 | disposition home or self-care (01) ==
LOC: ER 09:28
DX: G89.4 Chronic pain syndrome (principal); K59.03 Drug induced constipation; I11.0 Hypertensive heart disease with heart failure; K21.9 Gastro-esophageal reflux disease without esophagitis; E11.9 Type 2 diabetes mellitus without complications; G89.29 Other chronic pain; M54.9 Dorsalgia, unspecified; F31.9 Bipolar disorder, unspecified
CPT/HCPCS: 36415; 80053; 81003; 83690; 84145; 85025; 96360; 96372; 99283; J2212; J7030; 96361

== ENCOUNTER 2023-03-16 12:22 | Emergency (ER) | payer MEDICARE, MEDICAID ==
[~2023-03-16] VITALS: Ht 193 cm; Wt 142.8 kg
[~2023-03-16 12:22] MED LIST changes: +LACT10SO78 PO
[2023-03-16 12:24] VITALS: TEMP 98.2
[2023-03-16 14:20] VITALS: BP 127/60; PULSE 58; RESP 16; O2SAT 95
[2023-03-17] MEDS ORDERED: PROZ10C PO (20:06)
[2023-03-17] MEDS ORDERED: QUET25TA PO (20:06)
== END 2023-03-16 17:16 | disposition left against medical advice (07) ==
LOC: ER 12:23
DX: M79.662 Pain in left lower leg (principal); Z53.21 Procedure and treatment not carried out due to patient leaving prior to being seen by health care provider
CPT/HCPCS: 99281

== ENCOUNTER 2023-03-17 02:15 | Observation (INO) | payer MEDICARE, MEDICAID ==
[~2023-03-17] VITALS: Ht 193 cm; Wt 142.1 kg
[2023-03-17] MEDS ORDERED: normal saline 1000ML IV soln IVB ONE (03:45)
[2023-03-17 04:36] LABS: BASOPHILS % (AUTO) 0.8 % (0-1); EOSINOPHILS # (AUTO) 0.2 X10'3 (0-0.9); EOSINOPHILS % (AUTO) 3.7 % (0-6); HEMATOCRIT 37.3 % (42.0-52.0); HEMOGLOBIN 12.9 g/dl (14.0-17.9); LYMPHOCYTES # (AUTO) 1.2 X10'3 (1.1-4.8); LYMPHOCYTES % (AUTO) 21.5 % (21-51); MEAN CORPUSCULAR HEMOGLOBIN 31.1 PG (27.0-31.0); MEAN CORPUSCULAR HGB CONC 34.7 g/dL (33.0-36.5); MEAN CORPUSCULAR VOLUME 89.6 FL (78-98); MEAN PLATELET VOLUME 7.4 FL (7.4-10.4); MONOCYTES # (AUTO) 0.4 X10'3 (0-0.9); MONOCYTES % (AUTO) 8.1 % (2-12); NEUTROPHILS # (AUTO) 3.6 X10'3 (1.8-7.7); NEUTROPHILS % (AUTO) 65.9 % (42-75); PLATELET COUNT 175 X10'3 (140-440); RED BLOOD COUNT 4.16 X10'6 (4.70-6.10); RED CELL DISTRIBUTION WIDTH 16.8 % (11.5-14.5); WHITE BLOOD COUNT 5.4 X10'3 (4.5-11.0)
[2023-03-17] MEDS ORDERED: magnesium 2GM in 50ml NS 50 ML IV PRN (04:45)
[2023-03-17] MEDS ORDERED: acetaminophen 325mg tablet PO PRN (04:45)
[2023-03-17] MEDS ORDERED: magnesium hydroxide 30ml (MOM) UD suspension PO PRN (04:45)
[2023-03-17] MEDS ORDERED: mag hydrox/Alum hydrox/simeth 30ml oral suspension PO PRN (04:45)
[2023-03-17] MEDS ORDERED: potassium Cl 20 mEq SR tablet PO PRN ×2 (04:45)
[2023-03-17] MEDS ORDERED: magnesium Cl slow-release 64mg tablet PO PRN (04:45)
[2023-03-17] MEDS ORDERED: PERFLUTREN PROTEIN-A MICROSPHR (Optison) 0.22 MG/ML 3ML VIAL IV PRN (04:45)
[2023-03-17] MEDS ORDERED: potassium Cl 40MEQ/1/2NS 520ml 520 ML IV PRN (04:45)
[2023-03-17] MEDS ORDERED: magnesium 4gm in 100ml NS 100 ML IV PRN (04:45)
[2023-03-17] MEDS ORDERED: ondansetron/PF 4mg/2ml inj IV PRN (04:45)
[2023-03-17 04:59] LABS: PROTHROMBIN TIME 10.9 SECONDS (9.0-12.0)
[2023-03-17 05:04] LABS: ALANINE AMINOTRANSFERASE 17 U/L (12-78); ALBUMIN 3.3 G/DL (3.4-5.0); ALBUMIN/GLOBULIN RATIO 0.8 (1.1-1.5); ALKALINE PHOSPHATASE 74 IU/L (46-116); ANION GAP 4 (8-16); ASPARTATE AMINO TRANSFERASE 24 U/L (10-37); BILIRUBIN,TOTAL 1.2 MG/DL (0.1-1.0); BLOOD UREA NITROGEN 18 MG/DL (7-18); BUN/CREATININE RATIO 17.5 (10.0-20.0); CHLORIDE 101 MMOL/L (99-107); CREATININE 1.03 MG/DL (0.60-1.10); GLUCOSE 117 MG/DL (70-104); MAGNESIUM 1.9 MG/DL (1.5-2.4); POTASSIUM 3.8 MMOL/L (3.5-5.1); PRO BRAIN NATRIURETIC PEPTIDE 212 PG/ML (0-125); SODIUM 138 MMOL/L (135-145); TOTAL CARBON DIOXIDE 32.8 MMOL/L (24-32); TOTAL PROTEIN 7.7 G/DL (6.4-8.2); eCRCL 88 ML/MIN; eGFR 72 ML/MIN
[2023-03-17] MEDS: K and/or MAG REPLACEMENT MC SCH ×2 (07:20→19:46)
[2023-03-17] MEDS: clopidogrel 75mg tablet PO SCH (07:29)
[2023-03-17] MEDS: heparin, porcine 5000 units/ml vial SQ SCH ×2 (07:29→20:00)
[2023-03-17] MEDS: docusate sod 100mg capsule PO SCH ×2 (07:29→19:45)
[2023-03-17] MEDS: aspirin 81mg, enteric-coated 1 TAB TABLET.DR PO SCH (07:29)
[2023-03-17] MEDS ORDERED: methadone 10mg tablet PO SCH (08:00)
[2023-03-17] MEDS ORDERED: metoprolol tartrate 25mg tablet PO SCH (08:00)
[2023-03-17 10:01] LABS: BILIRUBIN,URINE NEGATIVE (Neg); CLARITY,URINE CLEAR (Clear); COLOR,URINE YELLOW (Yellow); GLUCOSE, URINE NEGATIVE (Neg); KETONES,URINE NEGATIVE (Neg); LEUKOCYTE ESTERASE ,URINE NEGATIVE (Neg); NITRITES, URINE NEGATIVE (Neg); OCCULT BLOOD,URINE TRACE-INTACT (Neg); PROTEIN,URINE NEGATIVE (Neg)
[2023-03-17 10:03] LABS: UA COLLECTION TYPE CLN CATCH MIDSTREAM
[2023-03-17 10:07] LABS: BACTERIA,URINE NONE SEEN /HPF (Neg); MUCUS STRANDS NONE SEEN /LPF (Neg); RBC,URINE 0-2 /HPF (0-2); SQUAMOUS EPITHELIAL CELL,UR NONE SEEN /LPF (FEW); WBC,URINE NONE SEEN /HPF (0-4)
[2023-03-17] MEDS ORDERED: ALPRAZolam 0.25mg tablet PO ONE (15:05)
[2023-03-17 19:12] VITALS: TEMP 98.3
[2023-03-17] MEDS ORDERED: temazepam 15mg capsule PO PRN (19:45)
[2023-03-17] MEDS ORDERED: PROZ10C PO (20:06)
[2023-03-17] MEDS ORDERED: QUET25TA PO (20:06)
[2023-03-17] MEDS ORDERED: quetiapine 100mg tablet PO SCH (22:30)
[2023-03-17] MEDS ORDERED: QUEtiapine 25mg tablet PO SCH (22:39)
[2023-03-18 03:55] LABS: ALANINE AMINOTRANSFERASE 17 U/L (12-78); ALBUMIN 3.4 G/DL (3.4-5.0); ALBUMIN/GLOBULIN RATIO 0.8 (1.1-1.5); ALKALINE PHOSPHATASE 78 IU/L (46-116); ANION GAP 7 (8-16); ASPARTATE AMINO TRANSFERASE 20 U/L (10-37); BILIRUBIN,TOTAL 0.9 MG/DL (0.1-1.0); BLOOD UREA NITROGEN 20 MG/DL (7-18); BUN/CREATININE RATIO 22.2 (10.0-20.0); CALCIUM 9.3 MG/DL (8.5-10.1); CHLORIDE 103 MMOL/L (99-107); GLUCOSE 108 MG/DL (70-104); POTASSIUM 4.2 MMOL/L (3.5-5.1); SODIUM 139 MMOL/L (135-145); TOTAL CARBON DIOXIDE 29.2 MMOL/L (24-32); TOTAL PROTEIN 7.7 G/DL (6.4-8.2); eCRCL 100 ML/MIN; eGFR 85 ML/MIN
[2023-03-18 03:58] LABS: BASOPHILS % (AUTO) 0.7 % (0-1); EOSINOPHILS # (AUTO) 0.2 X10'3 (0-0.9); EOSINOPHILS % (AUTO) 4.3 % (0-6); HEMATOCRIT 39.7 % (42.0-52.0); HEMOGLOBIN 13.6 g/dl (14.0-17.9); LYMPHOCYTES # (AUTO) 1.4 X10'3 (1.1-4.8); LYMPHOCYTES % (AUTO) 29.7 % (21-51); MEAN CORPUSCULAR HEMOGLOBIN 30.8 PG (27.0-31.0); MEAN CORPUSCULAR HGB CONC 34.4 g/dL (33.0-36.5); MEAN CORPUSCULAR VOLUME 89.5 FL (78-98); MEAN PLATELET VOLUME 7.5 FL (7.4-10.4); MONOCYTES # (AUTO) 0.4 X10'3 (0-0.9); MONOCYTES % (AUTO) 9.1 % (2-12); NEUTROPHILS # (AUTO) 2.6 X10'3 (1.8-7.7); NEUTROPHILS % (AUTO) 56.2 % (42-75); PLATELET COUNT 167 X10'3 (140-440); RED BLOOD COUNT 4.44 X10'6 (4.70-6.10); RED CELL DISTRIBUTION WIDTH 17.1 % (11.5-14.5); WHITE BLOOD COUNT 4.7 X10'3 (4.5-11.0)
[2023-03-18 07:04] VITALS: BP 178/79; PULSE 47; RESP 18; O2SAT 96
[2023-03-18] MEDS ORDERED: METH-603 PO (07:59)
[2023-03-18] MEDS: K and/or MAG REPLACEMENT MC SCH (08:00)
[2023-03-18] MEDS ORDERED: methadone 10mg tablet PO ONE (10:05)
[2023-03-18] MEDS: clopidogrel 75mg tablet PO SCH (10:09)
[2023-03-18] MEDS: aspirin 81mg, enteric-coated 1 TAB TABLET.DR PO SCH (10:09)
[2023-03-18] MEDS: docusate sod 100mg capsule PO SCH (10:09)
[2023-03-18] MEDS: heparin, porcine 5000 units/ml vial SQ SCH (10:16)
[2023-03-18] MEDS ORDERED: ondansetron 4mg rapidly disintigrating tab PO PRN (14:10)
== END 2023-03-18 15:20 | disposition home or self-care (01) ==
LOC: ER 02:16 → ED HOLD 04:49 → EDBEDREQ 03-18 05:18 → PCU 3S 03-18 07:20
PROVIDERS: ADMIT Internal Medicine; ATTEND Internal Medicine
DX: R00.1 Bradycardia, unspecified (principal); I25.10 Atherosclerotic heart disease of native coronary artery without angina pectoris; I11.0 Hypertensive heart disease with heart failure; I50.20 Unspecified systolic (congestive) heart failure; K21.9 Gastro-esophageal reflux disease without esophagitis; E11.9 Type 2 diabetes mellitus without complications; I25.2 Old myocardial infarction; F41.8 Other specified anxiety disorders; F41.0 Panic disorder [episodic paroxysmal anxiety]; E78.5 Hyperlipidemia, unspecified; F11.10 Opioid abuse, uncomplicated; G89.4 Chronic pain syndrome; I45.9 Conduction disorder, unspecified; I95.9 Hypotension, unspecified; I83.90 Asymptomatic varicose veins of unspecified lower extremity; M86.8X7 Other osteomyelitis, ankle and foot; F17.200 Nicotine dependence, unspecified, uncomplicated; T44.7X5A Adverse effect of beta-adrenoreceptor antagonists, initial encounter; Z79.02 Long term (current) use of antithrombotics/antiplatelets; Z79.82 Long term (current) use of aspirin; Z79.899 Other long term (current) drug therapy; Z95.5 Presence of coronary angioplasty implant and graft
CPT/HCPCS: 36415; 71045; 80053; 81001; 83605; 83735; 83880; 84132; 84145; 84484; 85025; 85610; 87040; 93005; 93306; 96360; 96361; 96372; 99285; G0378; J1644; J7030